=== PATIENT | female | born 1955 | race Caucasian/White ===

== ENCOUNTER 2023-07-06 10:06 | Outpatient (OUT) | payer OTHER, SELFPAY ==
[2023-07-06 10:37] LABS: Basophils Absolute Auto 0.1 10^3/uL (0.0-0.1); Basophils Percent Auto 1.1 % (0.2-2.0); Eosinophils Absolute Auto 0.4 10^3/uL (0.0-0.7); Eosinophils Percent Auto 5.7 % (0.9-7.0); Hematocrit 41.9 % (36.0-48.0); Hemoglobin 12.9 g/dL (12.0-16.0); Immature Granulocytes Abs Auto 0.01 10^3/uL (0.00-0.03); Immature Granulocytes Pct Auto 0.2 % (0.0-0.5); Lymphocytes Absolute Auto 1.7 10^3/uL (1.2-3.8); Lymphocytes Percent Auto 25.2 % (20.5-60.0); Mean Corpuscular HGB Conc 30.8 g/dL (29.9-35.2); Mean Corpuscular Hemoglobin 26.6 pg (26.7-34.0); Mean Corpuscular Volume 86.4 fL (81.0-99.0); Mean Platelet Volume 9.4 fL (9.5-13.5); Monocytes Absolute Auto 0.5 10^3/uL (0.3-0.8); Monocytes Percent Auto 7.1 % (1.7-12.0); Neutrophils Absolute Auto 4.1 10^3/uL (1.4-6.5); Neutrophils Percent Auto 60.7 % (43.0-75.0); Platelet Count 280 10^3/uL (150-450); Red Blood Count 4.85 10^6/uL (4.20-5.40); Red Cell Distribution Width 16.4 % (11.0-15.0); White Blood Count 6.7 10^3/uL (4.0-11.0)
[2023-07-06 11:17] LABS: Anion Gap 9.8; BUN Creatinine Ratio 16.1; Calcium 9.1 mg/dL (8.5-10.1); Carbon Dioxide 27.4 mmol/L (21.0-32.0); Chloride 105 mmol/L (98-107); Estimated GFR (African America 59 (>=60); Estimated GFR (Non-African Ame 49 (>=60); Glucose 98 mg/dL (74-106); Potassium 4.2 mmol/L (3.5-5.1); Sodium 138 mmol/L (136-145); Thyroid Stimulating Hormone 0.033 uIU/mL (0.358-3.740)
[2023-07-06 12:25] LABS: Free T4 1.76 ng/dL (0.76-1.46)
== END 2023-07-06 10:07 | disposition home or self-care (01) ==
LOC: LAB 10:13
PROVIDERS: PCP Family Medicine
DX: I48.0 Paroxysmal atrial fibrillation (principal)
CPT/HCPCS: 36415; 80048; 84439; 84443; 85025

== ENCOUNTER 2024-06-29 12:41 | Outpatient (OUT) | payer MEDICARE, SELFPAY ==
[2024-06-29 13:24] LABS: Basophils Absolute Auto 0.1 10^3/uL (0.0-0.1); Basophils Percent Auto 0.9 % (0.2-2.0); Eosinophils Absolute Auto 0.4 10^3/uL (0.0-0.7); Eosinophils Percent Auto 6.3 % (0.9-7.0); Hematocrit 41.9 % (36.0-48.0); Hemoglobin 13.9 g/dL (12.0-16.0); Immature Granulocytes Abs Auto 0.02 10^3/uL (0.00-0.03); Immature Granulocytes Pct Auto 0.3 % (0.0-0.5); Lymphocytes Absolute Auto 1.4 10^3/uL (1.2-3.8); Lymphocytes Percent Auto 21.4 % (20.5-60.0); Mean Corpuscular HGB Conc 33.2 g/dL (29.9-35.2); Mean Corpuscular Volume 90.3 fL (81.0-99.0); Mean Platelet Volume 9.9 fL (9.5-13.5); Monocytes Absolute Auto 0.5 10^3/uL (0.3-0.8); Neutrophils Absolute Auto 4.1 10^3/uL (1.4-6.5); Neutrophils Percent Auto 64.1 % (43.0-75.0); Platelet Count 189 10^3/uL (150-450); Red Blood Count 4.64 10^6/uL (4.20-5.40); Red Cell Distribution Width 13.3 % (11.0-15.0); White Blood Count 6.4 10^3/uL (4.0-11.0)
[2024-06-29 14:22] LABS: Free T4 1.26 ng/dL (0.76-1.46)
[2024-06-29 14:25] LABS: Anion Gap 10.4; BUN Creatinine Ratio 20.2; Calcium 8.9 mg/dL (8.5-10.1); Carbon Dioxide 28.7 mmol/L (21.0-32.0); Chloride 105 mmol/L (98-107); Estimated GFR (African America 52 (>=60); Estimated GFR (Non-African Ame 43 (>=60); Glucose 86 mg/dL (74-106); Potassium 4.1 mmol/L (3.5-5.1); Sodium 140 mmol/L (136-145); Thyroid Stimulating Hormone 0.069 uIU/mL (0.358-3.740)
== END 2024-06-29 12:42 | disposition home or self-care (01) ==
LOC: LAB 12:47
PROVIDERS: PCP Family Medicine
DX: I48.0 Paroxysmal atrial fibrillation (principal)
CPT/HCPCS: 36415; 80048; 84439; 84443; 85025

== ENCOUNTER 2024-10-20 11:17 | Outpatient (OUT) | payer MEDICARE, SELFPAY ==
--- OUTSIDE RECORDS SUMMARY | 2024-10-20 11:36 | XMS_ITS | CCD ---
Author Organization [facility] Care Team Providers Care Furnace Feeder Name Role Phone BLAKE MEMBRENO AM Unavailable Unavailable BLAKE MEMBRENO AM Unavailable Unavailable UNKNOWN, PROVIDER Unavailable Unavailable LACEY MARION Unavailable Unavailable [place] Unavailable Unavailable UNKNOWN, PROVIDER Unavailable Unavailable PASCALE, DR RAHMAN Primary Care Unavailable ONELIA, DR LEIA Duggan Consulting Unavailable ONELIA, DR LEIA Duggan Attending Unavailable ONELIA, DR LEIA Duggan Admitting Unavailable CARIDAD ZAMORA Consulting Unavailable SHAIKH Leonor CHRISTENSEN Consulting Unavailable BEAN SCHAFFER Consulting Unavailable PASCALE, DR RAHMAN Attending Unavailable PASCALE, DR RAHMAN Admitting Unavailable PASCALE, DR RAHMAN Primary Care Unavailable PASCALE, DR RAHMAN Consulting Unavailable ANA, DR ILANA Balderrama Consulting Unavailable Lacey Marion MD Primary Care Provider [phone] ADRYAN LONG Attending Unavailable LACEY MARION Referring Unavailable LACEY MARION Primary Care Unavailable ADRYAN LONG Referring Unavailable LACEY MARION Primary Care Unavailable Medications Current Medications Medication Drug Class(es) Dates Sig (Normalized) Sig (Original) flecainide acetate 50 mg oral tablet (3 sources) Antiarrhythmic Start: 07-22-2024 take 1 tablet by mouth in the morning, then take 1 tablet by mouth at bedtime flecainide (TAMBOCOR) 50 mg tablet Indications: Paroxysmal atrial fibrillation (CMS-HCC) Take 1 tablet (50 mg total) by mouth in the morning and 1 tablet (50 mg total) before bedtime. 180 tablet 3 07/22/2024 Active Start: 07-04-2023 End: 07-22-2024 take 1 tablet by mouth in the morning, then take 1 tablet by mouth at bedtime flecainide (TAMBOCOR) 50 mg tablet Indications: Paroxysmal atrial fibrillation (CMS-HCC) Take 1 tablet (50 mg total) by mouth in the morning and 1 tablet (50 mg total) before bedtime. 180 tablet 3 07/04/2023 07/22/2024 Discontinued (Reorder) furosemide 20 mg oral tablet (3 sources) Loop Diuretic Start: 07-22-2024 take 1 tablet by mouth once daily as needed furosemide (LASIX) 20 mg tablet Indications: Paroxysmal atrial fibrillation (CMS-HCC) Take 1 tablet (20 mg total) by mouth daily as needed (lower extremity swelling). 90 tablet 3 07/22/2024 Active Start: 07-04-2023 End: 07-22-2024 take 1 tablet by mouth once daily as needed furosemide (LASIX) 20 mg tablet Indications: Paroxysmal atrial fibrillation (CMS-HCC) Take 1 tablet (20 mg total) by mouth daily as needed (lower extremity swelling). 30 tablet 11 07/04/2023 07/22/2024 Discontinued (Reorder) levothyroxine sodium 0.125 mg oral tablet (3 sources) l-Thyroxine take 1 tablet by mouth in the morning levothyroxine (SYNTHROID, LEVOTHROID) 125 MCG tablet Take 1 tablet (125 mcg total) by mouth in the morning. Active End: 07-22-2024 take 1 tablet by mouth in the morning levothyroxine (SYNTHROID, LEVOTHROID) 150 MCG tablet Take 1 tablet (150 mcg total) by mouth in the morning. 07/22/2024 Discontinued (Dose adjustment) 24 hr metoprolol succinate 50 mg extended release oral tablet (3 sources) beta-Adrenergic Danica Start: 07-22-2024 take 1 tablet by mouth every twenty-four hours in the morning metoprolol succinate XL (TOPROL XL) 50 mg 24 hr tablet Indications: Paroxysmal atrial fibrillation (CMS-HCC) Take 1 tablet (50 mg total) by mouth in the morning. 90 tablet 3 07/22/2024 Active Start: 07-04-2023 End: 07-22-2024 take 1 tablet by mouth every twenty-four hours in the morning metoprolol succinate XL (TOPROL XL) 50 mg 24 hr tablet Indications: Paroxysmal atrial fibrillation (CMS-HCC) Take 1 tablet (50 mg total) by mouth in the morning. 90 tablet 3 07/04/2023 07/22/2024 Discontinued (Reorder) pantoprazole 40 mg delayed release oral tablet (2 sources) Proton Pump Inhibitor take 1 tablet by mouth in the morning pantoprazole (PROTONIX) 40 mg EC tablet Take 1 tablet (40 mg total) by mouth in the morning. Active rivaroxaban 15 mg oral tablet (2 sources) Factor Xa Inhibitor Start: take 1 tablet by mouth in the morning, then take 1 tablet by mouth in the morning rivaroxaban (XARELTO) 15 mg tablet Indications: Paroxysmal atrial fibrillation (CMS-HCC) , Atrial flutter (CMS-HCC) Take 1 tablet (15 mg total) by mouth in the morning. TAKE 1 TABLET (15 MG TOTAL) BY MOUTH IN THE MORNING. 30 tablet 6 07/22/2024 Active Problems Active Problems Problem Classification Problem Date Documented Da te Episodic/Chronic Cardiac dysrhythmias (12 sources) Unspecified atrial fibrillation; Translations: [Unspecified atrial flutter] Onset: 12-23-2017 07-22-2024 Chronic Cardiac dysrhythmias (1 source) Palpitations Onset: 07-22-2024 Episodic Conduction disorders (2 sources) Pre-excitation syndrome; Translations: [PRE-EXCITATION SYNDROME] Onset: 12-23-2017 Chronic Congestive heart failure; nonhypertensive (4 sources) Acute combined systolic (congestive) and diastolic (congestive) heart failure; Translations: [ACUTE COMB SYSTOLIC AND DIASTOLIC CHF] Onset: 08-09-2022 Chronic Deficiency and other anemia (2 sources) Iron deficiency anemia due to blood loss; Translations: [Iron deficiency anemia secondary to blood loss (chronic)] Onset: 06-23-2019 06-23-2019 Chronic Diverticulosis and diverticulitis (2 sources) Diverticulosis of large intestine; Translations: [Diverticulosis of large intestine without perforation or abscess without bleeding] Onset: 07-11-2019 07-11-2019 Chronic Esophageal disorders (1 source) Gastro-esophageal reflux disease without esophagitis; Translations: [GERD WITHOUT ESOPHAGITIS] Onset: 08-13-2022 Chronic Gastritis and duodenitis (2 sources) Gastritis; Translations: [Unspecified chronic gastritis without bleeding] Onset: 07-11-2019 07-11-2019 Chronic Heart valve disorders (5 sources) Rheumatic disorders of both mitral and tricuspid valves; Translations: [Tricuspid valve regurgitation] Onset: 12-23-2017 09-07-2018 Chronic Nutritional deficiencies (1 source) Unspecified protein-calorie malnutrition; Translations: [UNSPECIFIED PROTEIN-CALORIE MALNUTRITION] Onset: 12-23-2017 Chronic Osteoarthritis (1 source) Unspecified osteoarthritis, unspecified site; Translations: [UNSPECIFIED OSTEOARTHRITIS UNS SITE] Onset: 08-13-2022 Chronic Other circulatory disease (3 sources) History of cardiovascular surgery; Translations: [Presence of other cardiac implants and grafts] Onset: 09-15-2018 07-22-2024 Chronic Other circulatory disease (1 source) Presence of other cardiac implants and grafts; Translations: [Presence of other cardiac implants and grafts] Onset: 03-31-2019 Chronic Other connective tissue disease (4 sources) Pain in right toe(s); Translations: [PAIN IN RIGHT TOES] Onset: 11-21-2022 Episodic Maria Del Carmen-; endo-; and myocarditis; cardiomyopathy (except that caused by tuberculosis or sexually transmitted disease) (2 sources) Cardiomyopathy; Translations: [Cardiomyopathy, unspecified] Onset: 01-30-2021 01-30-2021 Chronic Residual codes; unclassified (1 source) Edema Onset: 07-22-2024 Episodic Substance-related disorders (2 sources) Nicotine dependence, cigarettes, uncomplicated; Translations: [NICOTINE DEPENDENCE, CIGARETTES, UNCOMPLICATED] Onset: 12-23-2017 Chronic Thyroid disorders (2 sources) Hypothyroidism, unspecified; Translations: [HYPOTHYROIDISM, UNSPECIFIED] Onset: 12-23-2017 Chronic Unclassified (2 sources) Unknown / UNK(Unknown) Onset: 12-23-2017 Unclassified (1 source) CONTACT W/AND (SUSP) EXPOS COVID-19; Translations: [CONTACT W/AND (SUSP) EXPOS COVID-19] Onset: 08-13-2022 Past or Other Problems Problem Classification Problem Date Documented Da te Episodic/Chronic Acute posthemorrhagic anemia (1 source) Acute posthemorrhagic anemia; Translations: [ACUTE POSTHEMORRHAGIC ANEMIA] Onset: 2 Episodic Gastrointestinal hemorrhage (1 source) Gastrointestinal hemorrhage, unspecified; Translations: [GASTROINTESTINAL HEMORRHAGE UNS] Onset: 2 Episodic Immunizations and screening for infectious disease (1 source) Encounter for immunization; Translations: [ENCOUNTER FOR IMMUNIZATION] Onset: 2 Episodic Malaise and fatigue (2 sources) Fatigue; Translations: [Other fatigue] Onset: 2 06-30-2022 Episodic Nonspecific chest pain (3 sources) Chest pain, unspecified; Translations: [CHEST PAIN, UNSPECIFIED] Onset: 8 Episodic Other aftercare (1 source) 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/antipl atelets; Translations: [RESIDENTIAL (CURRENT) USE OF ANTITHROMBOTICS/ANTIPL ATELETS] Onset: 8 Episodic Other aftercare (1 source) Other long wall mining machine helper (current) drug therapy; Translations: [OTH AGRICULTURE DEPARTMENT CHAIR CURRENT DRUG THERAPY] Onset: 2 Episodic Other aftercare (1 source) intermediate (current) use of anticoagulants; Translations: [RESIDENTIAL CURRNT USE ANTICOAGULANTS] Onset: 2 Episodic Other fractures (2 sources) Multiple closed fractures of cervical vertebrae; Translations: [Fracture of neck, unspecified, initial encounter] Onset: 8 10-18-2018 Episodic Other gastrointestinal disorders (2 sources) Occult blood in stools; Translations: [Other fecal abnormalities] Onset: 9 06-23-2019 Episodic Pleurisy; pneumothorax; pulmonary collapse (2 sources) Pleural effusion; Translations: [Pleural effusion, not elsewhere classified] Onset: 8 09-22-2018 Episodic Residual codes; unclassified (1 source) Acquired absence of both cervix and uterus; Translations: [ACQUIRED ABSENCE BOTH CERVIX AND UTERUS] Onset: 2 Episodic Unclassified (1 source) Body mass index (BMI) 21.0-21.9, adult; Translations: [BODY MASS INDEX (BMI) 21.0-21.9, ADULT] Onset: 8 Episodic Results Test Name Value Interpretation Reference Range Facility POCT [facility] 07-22-2024 [facility] PRBC LEUKOREDUCEDon 08-12-20 22 ABO and Rh group Nom (Bld) Cross Match Result Compatible Unit Blood Type O Pos Unit Number [id number] Status Information Transfused Product ID Red Blood Cells Product Code [id number] Cross Match Result Compatible Unit Blood Type O Pos Unit Number [id number] Status Information Transfused Product ID Red Blood Cells Product Code [id number] Normal [facility] Comment on above: Performed By: #### C NEEL, BMP #### [facility] [address] [place] [address] Dr. Radha Charlton BNPon 08-10-2022 Natriuretic peptide B (Bld) [Mass/Vol] 2858.0 pg/mL Critically high <=900.0 [facility] Comment on above: Performed By: #### C NAZIA, BMP #### [facility] [address] [place] [address] Dr. Radha Charlton HEMOGLOBIN AND HEMATOCRITon 08-10-2022 Hematocrit (Bld) [Volume fraction] 31.4 % Critically low 36.0-48.0 [facility] Comment on above: Performed By: #### H GBHCT #### [facility] [address] [place] [address] Dr. Radha Charlton Hemoglobin (Bld) [Mass/Vol] 9.4 g/dL Critically low 12.0-16.0 [facility] Comment on above: Performed By: #### H GBHCT #### [facility] [address] [place] [address] Dr. Radha Charlton Hematocrit (Bld) [Volume fraction] 29.1 % Critically low 36.0-48.0 [facility] Comment on above: Performed By: #### C NAZIA, BMP #### [facility] [address] [place] [address] Dr. Radha Charlton Hemoglobin (Bld) [Mass/Vol] 8.8 g/dL Critically low 12.0-16.0 [facility] Comment on above: Performed By: #### C NAZIA, BMP #### [facility] [address] [place] [address] Dr. Radha Charlton PROF 14(COMP METB)on 022 Albumin [Mass/Vol] 2.7 g/dL Critically low 3.4-5.0 [facility] Comment on above: Performed By: #### C NAZIA, BMP #### [facility] [address] [place] [address] Dr. Radha Charlton Albumin/Globulin [Mass ratio] 0.9 {ratio} Normal [facility] Comment on above: Performed By: #### C NAZIA, BMP #### [facility] [address] [place] [address] Dr. Radha Charlton ALP [Catalytic activity/Vol] 71 U/L Normal 46-116 [facility] Comment on above: Performed By: #### C NAZIA, BMP #### [facility] [address] [place] [address] Dr. Radha Charlton ALT [Catalytic activity/Vol] 49 U/L Normal 14-59 [facility] Comment on above: Performed By: #### C NAZIA, BMP #### [facility] [address] [address] [address] Radha Charlton Anion gap [Moles/Vol] 10.0 mmol/L Normal [facility] Comment on above: Performed By: #### C NAZIA, BMP #### [facility] [address] [place] [address] Dr. Radha Charlton AST [Catalytic activity/Vol] 31 U/L Normal 15-37 [facility] Comment on above: Performed By: #### C NZAIA, BMP #### [facility] [address] [place] [address] Dr. Radha Charlton Bilirubin [Mass/Vol] 0.3 mg/dL Normal 0.2-1.0 [facility] Comment on above: Performed By: #### C NAZIA, BMP #### [facility] [address] [place] [address] Dr. Radha Charlton Calcium [Mass/Vol] 8.2 mg/dL Critically low 8.5-10.1 [facility] Comment on above: Performed By: #### C NAZIA, BMP #### [facility] [address] [place] [address] Dr. Radha Charlton Chloride [Moles/Vol] 111 mmol/L Critically high 98-107 [facility] Comment on above: Performed By: #### C NAZIA, BMP #### [facility] [address] [place] [address] Dr. Radha Charlton CO2 [Moles/Vol] 26.4 mmol/L Normal 21.0-32.0 [facility] Comment on above: Performed By: #### C NAZIA, BMP #### [facility] [address] [place] [address] Dr. Radha Charlton Creatinine [Mass/Vol] 1.26 mg/dL Critically high 0.55-1.02 [facility] Comment on above: Performed By: #### C NEELM, BMP #### [facility] [address] [address] [address] Radha Charlton EGFR-AF CITIZEN OF [place] 51 mL/min/1.73m2 Critically low >=60 [facility] Comment on above: Performed By: #### C NEELM, BMP #### [facility] [address] [address] [address] Radha Charlton EGFR-NON AF CITIZEN OF [place] 42 mL/min/1.73m2 Critically low >=60 [facility] Comment on above: Performed By: #### C NAZIA, BMP #### [facility] [address] [address] [address] Radha Charlton Globulin (S) [Mass/Vol] 2.9 g/dL Normal [facility] Comment on above: Performed By: #### C NAZIA, BMP #### [facility] [address] [address] [address] Radha Charlton Glucose [Mass/Vol] 114 mg/dL Critically high 74-106 [facility] Comment on above: Performed By: #### C NAZIA, BMP #### [facility] [address] [address] [address] Radha Charlton Potassium [Moles/Vol] 3.4 mmol/L Critically low 3.5-5.1 [facility] Comment on above: Performed By: #### C NAZIA, BMP #### [facility] [address] [address] [address] Radha Charlton Protein [Mass/Vol] 5.6 g/dL Critically low 6.4-8.2 [facility] Comment on above: Performed By: #### C NAZIA, BMP #### [facility] [address] [address] [address] Radha Charlton Sodium [Moles/Vol] 144 mmol/L Normal 136-145 [facility] Comment on above: Performed By: #### C NAZAI, BMP #### [facility] [address] [place] [address] Dr. Radha Charlton Urea nitrogen [Mass/Vol] 29.0 mg/dL Critically high 7.0-18.0 [facility] Comment on above: Performed By: #### C NAZIA, BMP #### [facility] [address] [place] [address] Dr. Radha Charlton Urea nitrogen/Creatini ne [Mass ratio] 23.0 mg/mg Normal [facility] Comment on above: Performed By: #### C NAZIA, BMP #### [facility] [address] [place] [address] Dr. Radha Charlton BNPon 08-09-2022 Natriuretic peptide B (Bld) [Mass/Vol] 3320.0 pg/mL Critically high <=900.0 [facility] Comment on above: Performed By: #### C NAZIA, BMP #### [facility] [address] [place] [address] Dr. Radha Charlton CARDIAC BENJI 3-6on 2 CK [Catalytic activity/Vol] 97 U/L Normal 26-192 [facility] Comment on above: Performed By: #### C NAZIA, BMP #### [facility] [address] [place] [address] Dr. Radha Charlton CK.MB [Mass/Vol] 1.73 ng/mL Normal <=3.60 [facility] Comment on above: Performed By: #### C NAZIA, BMP #### [facility] [address] [place] [address] Dr. Radha Charlton HSTROP 11.9 pg/mL Normal 4.0-51.3 [facility] Comment on above: Result Comment: CUT- OFF POINTS HAVE BEEN ESTABLISHED BASED ON THE FOURTH UNIVERSAL DEFINITIONS OF MYOCARDIAL INFARCTION. THE UPPER REFERENCE LIMIT (URL) OF TROPONIN, DEFINED THE 99TH PERCENTILE OF cTnI DISTRIBUTION IN A REFERENCE POPULATION, HAS BEEN CONFIRMED THE DECISION THRESHOLD FOR CT DIAGNOSIS. Performed By: #### C NAZIA, BMP #### [facility] [address] [place] [address] Dr. Radha Charlton CK [Catalytic activity/Vol] 88 U/L Normal 26-192 [facility] Comment on above: Performed By: #### C NAZIA, BMP #### [facility] [address] [place] [address] Dr. Radha Charlton CK.MB [Mass/Vol] 1.73 ng/mL Normal <=3.60 [facility] Comment on above: Performed By: #### C NEELM, BMP #### [facility] [address] [place] [address] Dr. Radha Charlton HSTROP 14.3 pg/mL Normal 4.0-51.3 [facility] Comment on above: Result Comment: CUT- OFF POINTS HAVE BEEN ESTABLISHED BASED ON THE FOURTH UNIVERSAL DEFINITIONS OF MYOCARDIAL INFARCTION. THE UPPER REFERENCE LIMIT (URL) OF TROPONIN, DEFINED THE 99TH PERCENTILE OF cTnI DISTRIBUTION IN A REFERENCE POPULATION, HAS BEEN CONFIRMED THE DECISION THRESHOLD FOR CT DIAGNOSIS. Performed By: #### C NAZIA, BMP #### [facility] [address] [place] [address] Dr. Radha Charlton CARDIAC BENJI ADMITon 022 CK [Catalytic activity/Vol] 116 U/L Normal 26-192 [facility] Comment on above: Performed By: #### C NAZIA, BMP #### [facility] [address] [place] [address] Dr. Radha Charlton CK.MB [Mass/Vol] 2.32 ng/mL Normal <=3.60 [facility] Comment on above: Performed By: #### C NAZIA, BMP #### [facility] [address] [place] [address] Dr. Radha Charlton HSTROP 16.2 pg/mL Normal 4.0-51.3 [facility] Comment on above: Result Comment: CUT- OFF POINTS HAVE BEEN ESTABLISHED BASED ON THE FOURTH UNIVERSAL DEFINITIONS OF MYOCARDIAL INFARCTION. THE UPPER REFERENCE LIMIT (URL) OF TROPONIN, DEFINED THE 99TH PERCENTILE OF cTnI DISTRIBUTION IN A REFERENCE POPULATION, HAS BEEN CONFIRMED THE DECISION THRESHOLD FOR CT DIAGNOSIS. Performed By: #### C NAZIA, BMP #### [facility] [address] [place] [address] Dr. Radha Charlton VINICIO 95 ng/mL Critically high 9-82 [facility] Comment on above: Performed By: #### C NEELM, BMP #### [facility] [address] [place] [address] Dr. Radha Charlton CBC AUTO DIFFon 08-09-2022 BASO # 0.1 103/ul Normal 0.0-0.1 [facility] Comment on above: Performed By: #### C NAZIA, BMP #### [facility] [address] [place] [address] Dr. Radha Charlton Basophils/100 WBC (Bld) 0.7 % Normal 0.2-2.0 [facility] Comment on above: Performed By: #### C NAZIA, BMP #### [facility] [address] [place] [address] Dr. Radha Charlton EO # 0.3 103/ul Normal 0.0-0.7 [facility] Comment on above: Performed By: #### C NAZIA, BMP #### [facility] [address] [place] [address] Dr. Radha Charlton Eosinophils/100 WBC (Bld) 3.2 % Normal 0.9-7.0 [facility] Comment on above: Performed By: #### C NAZIA, BMP #### [facility] [address] [place] [address] Dr. Radha Charlton Erythrocyte distribution width (RBC) [Ratio] 19.4 % Critically high 11.0-15.0 [facility] Comment on above: Performed By: #### C NAZIA, BMP #### [facility] [address] [place] [address] Dr. Radha Charlton Hematocrit (Bld) [Volume fraction] 25.1 % Critically low 36.0-48.0 [facility] Comment on above: Performed By: #### C NAZIA, BMP #### [facility] [address] [place] [address] Dr. Radha Charlton Hemoglobin (Bld) [Mass/Vol] 7.0 g/dL Critically low 12.0-16.0 [facility] Comment on above: Performed By: #### C NAZIA, BMP #### [facility] [address] [address] [address] Radha Charlton IG # 0.05 10e3/ul Critically high 0.00-0.03 [facility] Comment on above: Performed By: #### C NAZIA, BMP #### [facility] [address] [address] [address] Radha Charlton IG % 0.5 % Normal 0.0-0.5 [facility] Comment on above: Performed By: #### C NAZIA, BMP #### [facility] [address] [address] [address] Radha Charlton LYMPH # 2.0 103/ul Normal 1.2-3.8 [facility] Comment on above: Performed By: #### C NAZIA, BMP #### [facility] [address] [place] [address] Dr. Radha Charlton Lymphocytes/100 WBC (Bld) 18.9 % Critically low 20.5-60.0 [facility] Comment on above: Performed By: #### C NAZIA, BMP #### [facility] [address] [place] [address] Dr. Radha Charltno MANUAL DIFF REQ NO Normal [facility] Comment on above: Performed By: #### C NAZIA, BMP #### [facility] [address] [place] [address] Dr. Radha Charlton MCH (RBC) [Entitic mass] 21.6 pg Critically low 26.7-34.0 [facility] Comment on above: Performed By: #### C NAZIA, BMP #### [facility] [address] [place] [address] Dr. Radha Charlton MCHC (RBC) [Mass/Vol] 27.9 g/dL Critically low 29.9-35.2 [facility] Comment on above: Performed By: #### C NAZIA, BMP #### [facility] [address] [place] [address] Dr. Radha Charlton MCV (RBC) [Entitic vol] 77.5 fL Critically low 81.0-99.0 [facility] Comment on above: Performed By: #### C MADM, BMP #### [facility] [address] [place] [address] Dr. Radha Charlton MONO # 1.0 103/ul Critically high 0.3-0.8 [facility] Comment on above: Performed By: #### C MADM, BMP #### [facility] [address] [place] [address] Dr. Radha Charlton Monocytes/100 WBC (Bld) 9.5 % Normal 1.7-12.0 [facility] Comment on above: Performed By: #### C MADM, BMP #### [facility] [address] [place] [address] Dr. Radha Charlton NEUT # 7.0 103/ul Critically high 1.4-6.5 [facility] Comment on above: Performed By: #### C MADM, BMP #### [facility] [address] [place] [address] Dr. Radha Charlton Neutrophils/100 WBC (Bld) 67.2 % Normal 43.0-75.0 [facility] Comment on above: Performed By: #### C MADM, BMP #### [facility] [address] [place] [address] Dr. Radha Charlton Platelet mean volume (Bld) [Entitic vol] 10.0 fL Normal 9.5-13.5 [facility] Comment on above: Performed By: #### C MADM, BMP #### [facility] [address] [place] [address] Dr. Radha Charlton PLT 308 103/ul Normal 150-450 [facility] Comment on above: Performed By: #### C MADM, BMP #### [facility] [address] [place] [address] Dr. Radha Charlton RBC 3.24 106/ul Critically low 4.20-5.40 [facility] Comment on above: Performed By: #### C MADM, BMP #### [facility] [address] [place] [address] Dr. Radha Charlton WBC 10.4 103/ul Normal 4.0-11.0 [facility] Comment on above: Performed By: #### C NEEL, [facility] #### [facility] [address] [address] [address] Radha Charlton CTA CHEST WO W CONon CTA CHEST WO W CON EXAMINATION: CTA CHEST WO W CON, 08/09/2022 2:07 AM EDT HISTORY: SHORTNESS OF BREATH COMPARISON: Chest x-ray earlier today TECHNIQUE: CT angiography of the chest was performed with IV contrast. MIP (maximum intensity projection) images or 3D post processing was performed. CT dose reduction technique was used, including Automated Exposure Control. FINDINGS: PULMONARY ARTERIES: There is excellent opacification of the pulmonary vasculature. No abnormal vascular cut-offs or filing defects to suggest presence of pulmonary emboli. Pulmonary trunk measures 3 CM, considered borderline for possible developing pulmonary hypertension. AORTA: Thoracic aorta is normal in course and caliber. Mild/moderate mixed soft and calcified plaque throughout, without evidence of dissection flap. No aneurysm. MEDIASTINUM: Thyroid not well seen may be small or absent. Trachea and central airways are patent. Heart is mildly enlarged without pericardial effusion. No measurable hilar or mediastinal lymphadenopathy. A few partially calcified lymph nodes compatible with remote granulomatous disease. PLEURAL CAVITY: No pneumothorax. Trace left and small to moderate right pleural effusions. LUNGS: Moderate bilateral centrilobular pulmonary emphysema. There is associated interstitial coarsening/scarring. Interlobular septal thickening is present, greatest in the mid to lower lungs, suggesting superimposed edema. There is some compressive atelectasis adjacent to the right effusion, with some additional hazy groundglass opacity in the right lower lobe. Mild diffuse bronchial wall thickening bilaterally, can be seen with acute or chronic bronchitis. CHEST WALL/AXILLA: No axillary lymphadenopathy VISUALIZED UPPER ABDOMEN: Mild narrowing of the proximal celiac and superior mesenteric and bilateral renal arteries due to atherosclerotic disease. Multiple calcified splenic granulomas. Probable mild renal cortical scarring bilaterally. Mildly thickened adrenals, could be from hyperplasia. A few calcified hepatic granulomas. A couple small low-attenuation lesions in the right hepatic lobe, too small to characterize but statistically most likely cysts or hemangiomas. BONES: No acute abnormality or destructive lesion. Mild/moderate chronic degenerative changes of the spine. Multiple sternotomy wires. Loop recorder in the left anterior chest wall. IMPRESSION: 1. No evidence of pulmonary embolus. 2. Pulmonary trunk measures 3 CM, considered borderline for possible developing pulmonary hypertension. 3. Mild/moderate mixed aortic atherosclerotic disease. No evidence of aneurysm or dissection. 4. Mild cardiomegaly. Small to moderate right and trace left pleural effusions, with evidence of pulmonary interstitial edema, consistent with an element of CHF/fluid overload. 5. Opacities in the right lower lobe, likely combination of atelectasis and edema, with superimposed infection possible in the proper setting. 6. Moderate centrilobular emphysema. Changes of acute versus chronic bronchitis. 7. Other chronic and likely incidental findings, as described above. Electronically authenticated by: BEAN SCHAFFER Date: 2022-08-09 03:39 Normal [facility] Covid-19 PCR (CVDTB)on 07-20 SARS-CoV-2 (COVID-19) RNA EMILIA+probe Ql (Unsp spec) Not detected Normal NOT DETECTED [facility] Comment on above: Result Comment: When diagnostic testing is negative, the possibility of a false negative should be considered in the context of a patient's recent exposures and the presence of clinical signs and symptoms consistent with SARS-CoV-2. This test is not yet approved or cleared by the [place] FDA. When there are no FDA-approved or cleared tests available, and other criteria are met, FDA can make tests available under an emergency access mechanism called an Emergency Use Authorization (EUA). The EUA for this test is supported by the [employer] of Health and Human Service's declaration that circumstances exist to justify the emergency use of in vitro diagnostics for the detection and/or diagnosis of the virus that causes COVID-19. This EUA will remain in effect for the duration of the COVID-19 declaration justifying emergency of IVDs, unless it is terminated or revoked by the FDA (after which the test may no longer be used). Performed By: #### C YISEL MANDUJANO #### [facility] [address] [place] [address] Dr. Radha Charlton D-DIMERon 08-09-2022 D-DIMER 1.36 mg/L FEU Critically high <=0.59 [facility] Comment on above: Performed By: #### C YISEL MANDUJANO #### [facility] [address] [address] [address] Radha Charlton D-DIMER COMMENTS SEE BELOW Normal [facility] Comment on above: Result Comment: Incr eases in D-Dimer concentration observed with thromboembolic events can be variable due to localization, size, and age of the thrombus. Therefore, a thromboembolic event cannot be diagnosed with certainty on the basis of the reference range. D-Dimers may also be elevated for a variety of disorders including: advanced age, , coronary disease, cancer, liver disease, infection, inflammation, hematoma, DIC, trauma, post-surgery, diabetes, thrombolytic or anticoagulant therapy, stress, and generalized hospitalization. Performed By: #### C MADM, BMP #### [facility] [address] [place] [address] Dr. Radha Charlton FREE T3on 08-09-2022 FREE T3 1.79 pg/mlL Critically low 2.18-3.98 [facility] Comment on above: Performed By: #### C MADM, BMP #### [facility] [address] [place] [address] Dr. Radha Charlton FREE T4on 08-09-2022 Free T4 [Mass/Vol] 1.43 ng/dL Normal 0.76-1.46 [facility] Comment on above: Performed By: #### F T4, FETIBC, B12FOL #### [facility] [address] [place] [address] Dr. Radha Charlton HEMOGLOBIN AND HEMATOCRITon 08-09-2022 Hematocrit (Bld) [Volume fraction] 29.5 % Critically low 36.0-48.0 [facility] Comment on above: Performed By: #### H GBHCT #### [facility] [address] [place] [address] Dr. Radha Charlton Hemoglobin (Bld) [Mass/Vol] 9.0 g/dL Critically low 12.0-16.0 [facility] Comment on above: Performed By: #### H GBHCT #### [facility] [address] [place] [address] Dr. Radha Charlton Hematocrit (Bld) [Volume fraction] 28.7 % Critically low 36.0-48.0 [facility] Comment on above: Performed By: #### H GBHCT #### [facility] [address] [address] [address] Radha Charlton Hemoglobin (Bld) [Mass/Vol] 8.7 g/dL Critically low 12.0-16.0 [facility] Comment on above: Performed By: #### H GBHCT #### [facility] [address] [address] [address] Radha Charlton INFLUENZA A AND B AGon 08-09 INFLUENZA A AG Negative Normal NEGATIVE SEE COMMENT [facility] Comment on above: Performed By: #### I NFLUAB #### [facility] [address] [place] [address] Dr. Radha Charlton INFLUENZA B AG Negative Normal NEGATIVE SEE COMMENT [facility] Comment on above: Performed By: #### I NFLUAB #### [facility] [address] [place] [address] Dr. Radha Charlton INTERNAL CONTROLS Within Normal Limits Normal Wi thin Normal Limits [facility] Comment on above: Performed By: #### I NFLUAB #### [facility] [address] [place] [address] Dr. Radha Charlton IRON AND TIBCon 08-09-2022 % SATURATION 3.5 % Normal [facility] Comment on above: Performed By: #### F T4, FETIBC, B12FOL #### [facility] [address] [address] [address] Radha Charlton Iron [Mass/Vol] 16.0 ug/dL Critically low 50.0-170.0 [facility] Comment on above: Performed By: #### F T4, FETIBC, B12FOL #### [facility] [address] [address] [address] Radha Charlton TIBC DIRECT 463.0 ug/dL Critically high 250.0-450. 0 [facility] Comment on above: Performed By: #### F T4, FETIBC, B12FOL #### [facility] [address] [place] [address] Dr. Radha Charlton OCC BLD IMMUNO SCREENon 07-20 OCCULT BLOOD Positive Abnormal NEGATIVE [facility] Comment on above: Performed By: #### O BSCRN #### [facility] [address] [place] [address] Dr. Radha Charlton PROF CHEM 8 (BAS METB)on Anion gap [Moles/Vol] 12.4 mmol/L Normal [facility] Comment on above: Performed By: #### C NEELM, BMP #### [facility] [address] [place] [address] Dr. Radha Charlton Calcium [Mass/Vol] 8.0 mg/dL Critically low 8.5-10.1 [facility] Comment on above: Performed By: #### C NEELM, BMP #### [facility] [address] [place] [address] Dr. Radha Charlton Chloride [Moles/Vol] 109 mmol/L Critically high 98-107 [facility] Comment on above: Performed By: #### C NEELM, BMP #### [facility] [address] [place] [address] Dr. Radha Charlton CO2 [Moles/Vol] 22.4 mmol/L Normal 21.0-32.0 [facility] Comment on above: Performed By: #### C NAZIA, BMP #### [facility] [address] [place] [address] Dr. Radha Charlton Creatinine [Mass/Vol] 1.62 mg/dL Critically high 0.55-1.02 [facility] Comment on above: Performed By: #### C NEELM, BMP #### [facility] [address] [place] [address] Dr. Radha Charlton EGFR-AF CITIZEN OF [place] 39 mL/min/1.73m2 Critically low >=60 [facility] Comment on above: Performed By: #### C NEELM, BMP #### [facility] [address] [place] [address] Dr. Radha Charlton EGFR-NON AF CITIZEN OF [place] 32 mL/min/1.73m2 Critically low >=60 [facility] Comment on above: Performed By: #### C NEELM, BMP #### [facility] [address] [place] [address] Dr. Radha Charlton Glucose [Mass/Vol] 124 mg/dL Critically high 74-106 [facility] Comment on above: Performed By: #### C NAZIA, BMP #### [facility] [address] [place] [address] Dr. Radha Charlton Potassium [Moles/Vol] 3.8 mmol/L Normal 3.5-5.1 [facility] Comment on above: Performed By: #### C NAZIA, BMP #### [facility] [address] [place] [address] Dr. Radha Charlton Sodium [Moles/Vol] 140 mmol/L Normal 136-145 [facility] Comment on above: Performed By: #### C NAZAI, BMP #### [facility] [address] [place] [address] Dr. Radha Charlton Urea nitrogen [Mass/Vol] 34.0 mg/dL Critically high 7.0-18.0 [facility] Comment on above: Performed By: #### C NAZIA, BMP #### [facility] [address] [place] [address] Dr. Radha Charlton Urea nitrogen/Creatini ne [Mass ratio] 21.0 mg/mg Normal [facility] Comment on above: Performed By: #### C NAZIA, BMP #### [facility] [address] [place] [address] Dr. Radha Charlton TSHon 08-09-2022 TSH 0.259 uIU/mL Critically low 0.358-3.74 0 [facility] Comment on above: Performed By: #### C NAZIA, BMP #### [facility] [address] [place] [address] Dr. Radha Charlton TYPE AND SCREENon 08-09-2022 TYPE AND SCREEN Negative Normal [facility] Comment on above: Performed By: #### C NAZIA, BMP #### [facility] [address] [place] [address] Dr. Radha Charlton VIT B12 AND FOLATEon 022 Cobalamin (Vitamin B12) [Mass/Vol] 459.0 pg/mL Normal 193.0-986. 0 [facility] Comment on above: Performed By: #### F T4, FETIBC, B12FOL #### [facility] [address] [place], [place] [address] Dr. Radha Charlton FOLATE 10.20 ng/mL Normal 8.60-58.90 [facility] Comment on above: Performed By: #### F T4, FETIBC, B12FOL #### [facility] [address] [place], [place] [address] Dr. Radha Charlton XR CHEST 1 Von 08-09-2022 XR CHEST 1 V EXAM: XR CHEST 1 V HISTORY: CHEST PAIN, UNSPECIFIED COMPARISON: 01/15/2021 TECHNIQUE: Chest single view. FINDINGS: Lines/tubes/devices: EKG leads and other extrinsic structures overlie the chest. Cardiac loop recorder. Cardiomediastinum: Cardiac silhouette appears upper normal in size. Atherosclerotic calcifications of the aorta. Mediastinal silhouette otherwise unremarkable. Vasculature: Possible mild central vascular congestion. Lungs/pleura: Lungs appear hyperinflated with interstitial coarsening, findings suggestive of COPD. No consolidation, sizeable effusion, or visible pneumothorax. Hazy opacity over the lung bases likely from overlying soft tissue attenuation. Bones/soft tissues: Bony thorax appears grossly intact as seen. Postop changes with sternotomy wires present. IMPRESSION: Possible mild central vascular congestion. No overt edema or sizable pleural effusion. Electronically authenticated by: BEAN SCHAFFER Date: 2022-08-09 02:20 Normal [facility] Consent for COVID Vaccineon 02-02-2021 SARS-CoV-2 (COVID-19) RNA EMILIA+probe Ql (Unsp spec) [id number]#1.00CD:127 Normal [facility] Coding Summary.on 01-07-2021 Coding Summary. CODING DATE: 021 FINAL [facility] STATUS: PAYOR: Praveen APC DESCRIPTION [employer] - Level 1B ($11-$20) ADMIT DX: REASON FOR VISIT DX: Z23 Encounter for immunization FINAL DX: PRINCIPAL: Z23 Encounter for immunization SECONDARY: PYMT PROC APC STAT DESCRIPTION DOCTOR NAME DATE NOTE: The code number assigned matches the documented diagnosis and / or procedure in the patient's chart. However, the narrative phrase printed from the coding software may appear abbreviated, or result in slightly different terminology. Coded By: Adelaide Schaffer Date Saved: 01/07/2021 09:23 am Normal [facility] Consent for COVID Vaccineon 01-03-2021 SARS-CoV-2 (COVID-19) RNA EMILIA+probe Ql (Unsp spec) [id number]#1.00CD:127 Normal [facility] Consent for Treatmenton 12-17 Consent for Treatment [id number]#1.00CD:127 Normal [facility] Cardiovascular Lab Reporton 12-25-2017 Cardiovascular Lab Report [facility] Patient Name: Kwame Victoria [facility] MR #: [id number] Physician: Oj Luna M.D.Medicine Service Date: 12/24/2017Division of Birthdate: 6Cardiology Room #: 3AB [id number] [facility] [place], [place] [address]Sftav Fax Cardiovascular Laboratory ReportINDICATION: Kwame Victoria is a 62-year-old lady with history of WPW statuspost surgical ablation in 1989. She has history of atrial flutterdiagnosed about 1 year ago and has been maintained on Eliquis. She wasad[facility] with symptoms of unstableangina and continuous chest pain. Her cardiac enzymes were negative. Shewas found to be in atrial flutter with uncontrolled ventricular response.Her echocardiogram showed preserved ventricular function with moderatemitral and tricuspid regurgitation and dilated atria. She was transferredto our center for further management and referred for cardiaccatheterization.PROCEDURE PERFORMED: Bilateral selective coronary angiography from theright radial access.METHOD: Procedure was explained to the patient with risks and benefits.She signed informed consent. She was brought [place] [facility] [place]. The right wrist area was prepped and draped in usual fashion.Using micropuncture technique, the right radial artery was accessed. A6-[place] x 11 cm Hydrophilic sheath was advanced. Verapamil was giventhrough the sheath and heparin was administered intravenously. James'stest was favorable on the right. Bilateral selective coronary angiographywas then performed using a 6-[place] Sree radial diagnostic catheter forengagement of the right and left main coronary ostia, catheter was removed.Procedure was concluded. The access sheath was removed and a compressiondressing applied for hemostasis. She was transferred back to her room.TOTAL FLUORO TIME: 2.44 minutes.TOTAL AIR KERMA: 179 mGy.TOTAL CONTRAST VOLUME: 25 mL.HEMODYNAMICS: AO 163/87, mean 120.Coronary angiography: This is a right dominant circulation.Left main. This arises from left coronary cusp. It bifurcates into leftanterior descending and circumflex vessels. The left main is free ofdisease.Left anterior descending. This has minimal luminal irregularities.Circumflex vessel: This has minimal luminal irregularities.Right coronary artery. This arises from the right coronary cusp. It is alarge and dominant vessel. It has minimal luminal irregularities, mostlyin the mid segment. The rest of the right coronary artery is free ofdisease.SUMMARY OF THE FINDINGS: Minimal coronary artery disease.RECOMMENDATIONS:1. Medical therapy for minimal coronary artery disease.2. Management of atrial flutter as indicated.Electronically Signed by:Oj Rocha M.D. 12/27/2017 11:38 P Oj Rocha M.D.Date Dict: 12/24/2017/02:58 P/Oj Rocha M.D.Date Trans: 12/25/2017 04:21 A/CatherineN_JN:[id number]: Lacey Marion M.D. [address] [place] [id number] [facility] [place] [facility] [id number] Oj Rocha M.D. Heart Failure/ Transplant Mailstop 0[address] [facility] [address] Normal [facility] Discharge Summaryon 12-26-19 Discharge Summary MR#: [id number] [facility] Kwame Victoria Admitted: 12/23/2017 Discharged: 12/24/2017 Date of : 1955 Physician: Blake Membreno M.D. DISCHARGE SUMMARYPRIMARY DIAGNOSIS: Noncardiac chest pain.SECONDARY DIAGNOSES:1. Atrial flutter.2. Celzd-Sgtjrrqad-Izwsu syndrome status post ablation in the .3. Hypothyroidism.HISTORY OF PRESENT ILLNESS AND HOSPITAL COURSE: The patient is [id number] female with a past medical history as noted above, [facility] after she presented with acuteretrosternal chest pain, that was pressure-like in nature, that woke her upfrom sleep. The pain is not exertional and had not occurred prior topresentation. EKG report showed no changes and troponins were negative x2.She was taken to the catheterization lab on 12/23/2017, which wasunremarkable and showed no significant coronary artery disease. Thecatheterization was done by the radial approach. At the time of discharge,the patient reported no chest pain and was discharged to home withappropriate followup appointment scheduled.DISCHARGE DISPOSITION: The patient was discharged to home in an improvedand stable condition.DISCHARGE MEDICATIONS:1. Diclofenac sodium 75 mg tablet 3 times daily.2. Diltiazem 30 mg 3 times daily.3. Isosorbide mononitrate 30 mg daily.4. Levothyroxine 137 mcg daily.5. Nitroglycerin 0.4 mg sublingual p.r.n. for chest pain.6. Pantoprazole 40 mg daily.7. Xarelto 20 mg at bedtime daily.Reviewed By:Annalise Stephenson MD 12/26/2017 01:52 PElectronically Signed by:Blake Membreno M.D. 01/05/2018 04:24 P Blake Membreno M.D. I personally saw this patient on the day of the encounter, performed thekey portion(s) of the service and participated in the management andconfirm the resident's documentation. Please note there may be anadditional personal documentation from me. Date Dict: 12/24/2017/04:20 P/Annalise Sachin, MDDate Trans: 12/25/2017 12:19 A/mmClarisaN_JN:[id number]: Lacey Marion M.D. [address] [place] [address] Oj Rocha M.D. Heart Failure/ Transplant Mailstop [address] [facility] [address] Normal [facility] APTTon 12-24-2017 aPTT 72.7 s Critically high 25.0-35.0 [facility] Comment on above: Order Comment: No: D o not add to previous draw Result Comment: ALL RESULTS MUST BE INTERPRETED WITH RESPECT TO BLOOD DRAWING ARTIFACTOR DILUTION ERROR OF ANTICOAGULANT AT THE TIME OF SAMPLING.THE APTT SHOULD NOT BE USED TO MONITOR UNFRACTIONATED HEPARIN THERAPY, THIS LABORATORY NO LONGER HAS AN ESTABLISHED THERAPEUTIC RANGE BASEDON THE APTT. IT IS RECOMMENDED THAT THE UFH - HEPARIN ASSAY (ANTI-XAACTIVITY) BE USED FOR THIS PURPOSE.RESULT CALLED TO NELL JENSEN 0640CLINICAL SIGNIFICANCE OF THE PTT RESULT IS QUESTIONABLE IN THE PRESENCEOF HEPARIN. Performed By: #### 3 5200, 62294, 53724 ####[facility] [facility].[address] BASIC METABOLIC PANELon 03-0 Calcium 8.1 mg/dL Low 8.6-10.3 [facility] Comment on above: Order Comment: No: D o not add to previous draw Performed By: #### 3 5200, 45277, 08087 ####[facility] [place] [address], [facility] Chloride 115 mmol/L High 98-107 [facility] Comment on above: Order Comment: No: D o not add to previous draw Performed By: #### 3 5200, 55204, 67378 ####[facility] [place] [address], [facility] CO2 25 mmol/L Normal 21-31 [facility] Comment on above: Order Comment: No: D o not add to previous draw Performed By: #### 3 5200, 14146, 13592 ####[facility] [place] [address], [facility] Creatinine 0.78 mg/dL Normal 0.60-1.20 [facility] Comment on above: Order Comment: No: D o not add to previous draw Performed By: #### 3 5200, 37136, 75478 ####[facility] [place] [address], [facility] eGFR (black) mL/min/{1.73_m2} Normal >60 [facility] Comment on above: Order Comment: No: D o not add to previous draw Performed By: #### 3 5200, 55988, 33691 ####[facility] [place] [address], [facility] eGFR (non-black) mL/min/{1.73_m2} Normal >60 Th e [facility] Comment on above: Order Comment: No: D o not add to previous draw Performed By: #### 3 5200, 72439, 90164 ####[facility] [place] [address], [facility] Glucose mass conc 87 mg/dL Normal 70-100 [facility] Comment on above: Order Comment: No: D o not add to previous draw Performed By: #### 3 0, 14204, 61515 ####[facility] [place] [address], [place] Potassium molar conc 4.3 mmol/L Normal 3.5-5.1 [facility] Comment on above: Order Comment: No: D o not add to previous draw Performed By: #### 3 5200, 36410, 93263 ####[facility] [place] [address], [place] Sodium 142 mmol/L Normal 136-145 [facility] Comment on above: Order Comment: No: D o not add to previous draw Performed By: #### 3 5200, 11268, 63948 ####[facility] Urea nitrogen 19 mg/dL Normal 7-25 [facility] Comment on above: Order Comment: No: D o not add to previous draw Performed By: #### 3 5200, 49052, 41674 ####[facility] CBC W/DIFFon 12-24-2017 ABS BASOPHILS 0.1 10*3/uL Normal 0.0-0.2 [facility] Comment on above: Order Comment: No: D o not add to previous draw Performed By: #### 5 0103 ####[address] ABS IMM GRANS 0.0 10*3/uL Normal 0.0-0.2 [facility] Comment on above: Order Comment: No: D o not add to previous draw Performed By: #### 5 0103 ####[address] Basophils Auto #/vol (Bld) 0.6 % Normal 0.0-1.0 [facility] Comment on above: Order Comment: No: D o not add to previous draw Performed By: #### 5 0103 ####[address] Eosinophils 0.4 10*3/uL Normal 0.0-0.5 [facility] Comment on above: Order Comment: No: D o not add to previous draw Performed By: #### 5 0103 ####[address] Eosinophils/100 leukocytes 3.6 % Normal 0.0-6.0 [facility] Comment on above: Order Comment: No: D o not add to previous draw Performed By: #### 5 0103 ####[facility] Erythrocyte distribution width Auto Ratio (RBC) 13.3 % Normal 11.5-15.0 [facility] Comment on above: Order Comment: No: D o not add to previous draw Performed By: #### 5 0103 ####[facility] [facility].[address] [address] Erythrocytes (RBC) 0 % Normal 0-0 [facility] Comment on above: Order Comment: No: D o not add to previous draw Performed By: #### 5 0103 ####[facility]3000 [facility].[address] Erythrocytes (RBC) 3.54 10*6/uL Low 3.80-5.00 [facility] Comment on above: Order Comment: No: D o not add to previous draw Performed By: #### 5 3 ####[facility]3000 [facility].[address] Hematocrit (HCT) 32.7 % Low 36.0-45.0 [facility] Comment on above: Order Comment: No: D o not add to previous draw Performed By: #### 5 3 ####[facility]3000 [facility].[address] Hemoglobin mass conc (Bld) 10.4 g/dL Low 12.0-15.0 [facility] Comment on above: Order Comment: No: D o not add to previous draw Performed By: #### 5 3 ####[facility]3000 [facility] [place] [address], [facility] IMMATURE GRANS 0.3 % Normal 0.0-1.0 [facility] Comment on above: Order Comment: No: D o not add to previous draw Performed By: #### 5 3 ####[facility] Lymphocytes 2.1 10*3/uL Normal 1.2-4.0 [facility] Comment on above: Order Comment: No: D o not add to previous draw Performed By: #### 5 0103 ####[facility]3000 [facility].[address] Lymphocytes/100 leukocytes 20.8 % Normal 20.0-45.0 [facility] Comment on above: Order Comment: No: D o not add to previous draw Performed By: #### 5 0103 ####[facility]3000 [facility].[address] MCH 29.4 pg Normal 27.0-33.0 [facility] Comment on above: Order Comment: No: D o not add to previous draw Performed By: #### 5 0103 ####[facility]3000 [facility].[address] MCHC mass conc (RBC) 31.8 g/dL Low 32.0-35.0 [facility] Comment on above: Order Comment: No: D o not add to previous draw Performed By: #### 5 0103 ####[facility]3000 [facility].[address] MCV 92.4 fL Normal 82.0-98.0 [facility] Comment on above: Order Comment: No: D o not add to previous draw Performed By: #### 5 0103 ####[facility]3000 [facility].[address] Monocytes 0.6 10*3/uL Normal 0.1-1.0 [facility] Comment on above: Order Comment: No: D o not add to previous draw Performed By: #### 5 0103 ####[facility] [place] [address] AV[address] MONOS 5.6 % Normal 5.0-12.0 [facility] Comment on above: Order Comment: No: D o not add to previous draw Performed By: #### 5 0103 ####[facility] [place] [address], [facility] Neutrophils 6.9 10*3/uL Normal 1.6-7.6 [facility] Comment on above: Order Comment: No: D o not add to previous draw Performed By: #### 5 0103 ####[facility] Neutrophils/100 leukocytes 69.1 % Normal 40.0-72.0 [facility] Comment on above: Order Comment: No: D o not add to previous draw Performed By: #### 5 0103 ####[facility]3000 [facility].[address] PLAT CNT 228 10*3/uL Normal 150-400 [facility] Comment on above: Order Comment: No: D o not add to previous draw Performed By: #### 5 0103 ####[facility] WBC (Leukocytes) 10.0 10*3/uL Normal 4.0-10.6 [facility] Comment on above: Order Comment: No: D o not add to previous draw Performed By: #### 5 0103 ####[facility]3000 [address]HE.[address] LIVER BATTERYon 12-24-2017 Alanine aminotransferase (ALT) 27 U/L Normal 7-52 [facility] Comment on above: Order Comment: No: D o not add to previous draw Performed By: #### 3 5200, 47082, 07956 ####[facility] Albumin 2.9 g/dL Low 3.5-5.7 [facility] Comment on above: Order Comment: No: D o not add to previous draw Performed By: #### 3 5200, 56717, 56975 ####[facility] [place] [address], [facility] ALKALINE PHOSPH 41 IU/L Normal 34-104 [facility] Comment on above: Order Comment: No: D o not add to previous draw Performed By: #### 3 5200, 87549, 92803 ####[facility] Aspartate aminotransferase (AST) 15 U/L Normal 13-39 [facility] Comment on above: Order Comment: No: D o not add to previous draw Performed By: #### 3 5200, 98120, 13029 ####[facility] [place] [address], [facility] Bilirubin (direct) 0.1 mg/dL Normal 0.0-0.2 [facility] Comment on above: Order Comment: No: D o not add to previous draw Performed By: #### 3 5200, 31574, 86596 ####[facility]3000 [facility].[address] Bilirubin (total) 0.4 mg/dL Normal 0.3-1.0 [facility] Comment on above: Order Comment: No: D o not add to previous draw Performed By: #### 3 5200, 54346, 05886 ####[facility]3000 [facility] [place] [place] [address], [facility] Protein 4.8 g/dL Low 6.0-8.3 [facility] Comment on above: Order Comment: No: D o not add to previous draw Performed By: #### 3 5200, 85525, 50197 ####[facility] [place] [address], [facility] MAGNESIUM BLOODon 12-24-2017 Magnesium 1.9 mg/dL Normal 1.9-2.7 [facility] Comment on above: Order Comment: No: D o not add to previous draw Performed By: #### 3 5200, 33525, 49764 ####[facility]3000 [facility].[address] PROTHROMBIN TIMEon 8 INR Coag RelTime (PPP) 1.03 {INR} Normal 0.91-1.16 [facility] Comment on above: Order Comment: No: D o not add to previous draw Result Comment: ACCC P RECOMMENDED INR FOR WARFARIN THERAPY CONDITION INRPROPHYLAXIS OF VENOUS THROMBOSIS 2-3(HIGH-RISK SURGERY)TREATMENT OF VENOUS THROMBOSIS 2-3TREATMENT OF PULMONARY EMBOLISM 2-3PREVENTION OF SYSTEMIC EMBOLISM: 2-3 ACUTE MYOCARDIAL INFARCTION TISSUE HEART VALVES VALVULAR HEART DISEASE ATRIAL FIBRILLATION RECURRENT SYSTEMIC EMBOLISMMECHANICAL HEART VALVE 2.5-3.5 FROM: ORAL ANTICOAGULANTS. MECHANISM OF ACTION, CLINICALEFFECTIVENESS, AND OPTIMAL THERAPEUTIC RANGE. [id number]-246S. Performed By: #### 3 3030, 28818, 67476 ####[facility]3000 [facility].[address] Prothrombin time (PT) Coag time (PPP) 13.5 s Normal 12.3-14.8 [facility] Comment on above: Order Comment: No: D o not add to previous draw Result Comment: ALL RESULTS MUST BE INTERPRETED WITH RESPECT TO BLOOD DRAWING ARTIFACTOR DILUTION ERROR OF ANTICOAGULANT AT THE TIME OF SAMPLING. Performed By: #### 3 5200, 65196, 17788 ####[facility]3000 [facility].[address] TROPONIN-Ion 12-24-2017 Troponin I.cardiac mass conc 0.00 ng/mL Normal 0.00-0.04 [facility] Comment on above: Order Comment: No: D o not add to previous draw Result Comment: REFE RENCE RANGES: 0.00 - 0.14 ng/ml NEGATIVE 0.15 - 0.25 ng/ml INDETERMINATE > 0.25 ng/ml INDICATIVE OF AN M.I. Performed By: #### 3 5200 ####[facility] TSHon 12-24-2017 Thyroid stimulating hormone (TSH) 0.57 MICRO-IU/ML Normal 0.34-5.60 [facility] Comment on above: Order Comment: No: D o not add to previous draw Performed By: #### 3 5200, 85104, 72711 ####[facility] UFH HEPARIN ASSAYon 12-25-19 18 UNFRACTIONATED HEPARIN 0.43 IU/mL Normal 0.30-0.70 [facility] Comment on above: Result Comment: Do roxaban and Apixaban will interfere with the anti Xa assay used tomonitor UFH and LMWH. Performed By: #### 3 5377, 64547, 58640 ####[facility] UNFRACTIONATED HEPARIN 0.56 IU/mL Normal 0.30-0.70 [facility] Comment on above: Result Comment: [place] roxaban and Apixaban will interfere with the anti Xa assay used tomonitor UFH and LMWH. Performed By: #### 3 0477 ####[facility] BASIC METABOLIC PANELon 03- Calcium 8.0 mg/dL Low 8.6-10.3 [facility] Comment on above: Order Comment: No: D o not add to previous draw Performed By: #### 3 5200, 67416, 28782 ####[facility] [place] [address], [facility] Chloride 117 mmol/L High 98-107 [facility] Comment on above: Order Comment: No: D o not add to previous draw Performed By: #### 3 5200, 24283, 17023 ####[facility]3000 [facility] [place] [place] [address], [facility] CO2 27 mmol/L Normal 21-31 [facility] Comment on above: Order Comment: No: D o not add to previous draw Performed By: #### 3 5200, 27402, 93575 ####[place] [address] [facility] [place] [address], [facility] Creatinine 0.78 mg/dL Normal 0.60-1.20 [facility] Comment on above: Order Comment: No: D o not add to previous draw Performed By: #### 3 5200, 75419, 82169 ####[facility]3000 [facility] [place] [address], [facility] eGFR (black) mL/min/{1.73_m2} Normal >60 [facility] Comment on above: Order Comment: No: D o not add to previous draw Performed By: #### 3 0, 10699, 94382 ####[facility]3000 [facility] [place] [address], [facility] eGFR (non-black) mL/min/{1.73_m2} Normal >60 Th e [facility] Comment on above: Order Comment: No: D o not add to previous draw Performed By: #### 3 5200, 08624, 07615 ####[facility]3000 [facility] [place] [place] [address], [facility] Glucose mass conc 93 mg/dL Normal 70-100 [facility] Comment on above: Order Comment: No: D o not add to previous draw Performed By: #### 3 5200, 89081, 61577 ####[facility] Potassium molar conc 4.2 mmol/L Normal 3.5-5.1 [facility] Comment on above: Order Comment: No: D o not add to previous draw Performed By: #### 3 5200, 34697, 58614 ####[facility] Sodium 144 mmol/L Normal 136-145 [facility] Comment on above: Order Comment: No: D o not add to previous draw Performed By: #### 3 5200, 80516, 15284 ####[facility] Urea nitrogen 15 mg/dL Normal 7-25 [facility] Comment on above: Order Comment: No: D o not add to previous draw Performed By: #### 3 5200, 95962, 49870 ####[facility] CBC COMPLETE BLOOD COUNTon 0 - Erythrocyte distribution width Auto Ratio (RBC) 13.4 % Normal 11.5-15.0 [facility] Comment on above: Order Comment: No: D o not add to previous draw Performed By: #### 5 0608 ####[facility] Erythrocytes (RBC) 3.58 10*6/uL Low 3.80-5.00 [facility] Comment on above: Order Comment: No: D o not add to previous draw Performed By: #### 5 0608 ####[facility] Erythrocytes (RBC) 0 % Normal 0-0 [facility] Comment on above: Order Comment: No: D o not add to previous draw Performed By: #### 5 0608 ####[facility] Hematocrit (HCT) 33.6 % Low 36.0-45.0 [facility] Comment on above: Order Comment: No: D o not add to previous draw Performed By: #### 5 0608 ####[facility] Hemoglobin mass conc (Bld) 10.4 g/dL Low 12.0-15.0 [facility] Comment on above: Order Comment: No: D o not add to previous draw Performed By: #### 5 0608 ####[address] MCH 29.1 pg Normal 27.0-33.0 [facility] Comment on above: Order Comment: No: D o not add to previous draw Performed By: #### 5 0608 ####[address] MCHC mass conc (RBC) 31.0 g/dL Low 32.0-35.0 [facility] Comment on above: Order Comment: No: D o not add to previous draw Performed By: #### 5 0608 ####[address] MCV 93.9 fL Normal 82.0-98.0 [facility] Comment on above: Order Comment: No: D o not add to previous draw Performed By: #### 5 0608 ####[place] [address] PLAT CNT 249 10*3/uL Normal 150-400 [facility] Comment on above: Order Comment: No: D o not add to previous draw Performed By: #### 5 0608 ####[address] WBC (Leukocytes) 5.9 10*3/uL Normal 4.0-10.6 [facility] Comment on above: Order Comment: No: D o not add to previous draw Performed By: #### 5 0608 ####[facility] CPK-MB PROFILEon 12-23-2017 CKMB 3.6 ng/mL Normal 0.0-5.0 [facility] Comment on above: Order Comment: No: D o not add to previous draw Result Comment: IF T OTAL CK <200 U/L AND: 1. CKMB IS 5-10 NG/ML----BORDERLINE 2. CKMB IS >10 NG/ML----INDICATIVE OF CT OR IF TOTAL CK >200 U/L AND CKMB INDEX >1.9----INDICATIVE OF CT Performed By: #### 3 5200, 76821, 48598 ####[facility] CKMB 4.9 ng/mL Critically high 0.0-1.9 [facility] Comment on above: Order Comment: No: D o not add to previous draw Performed By: #### 3 5200, 12510, 80537 ####[facility] Creatine kinase (CK) 73 U/L Normal 30-223 [facility] Comment on above: Order Comment: No: D o not add to previous draw Performed By: #### 3 5200, 16489, 77216 ####[facility] [place] [address], [facility] TROPONIN-Ion 12-23-2017 Troponin I.cardiac mass conc 0.00 ng/mL Normal 0.00-0.04 [facility] Comment on above: Order Comment: No: D o not add to previous draw Result Comment: REFE RENCE RANGES: 0.00 - 0.14 ng/ml NEGATIVE 0.15 - 0.25 ng/ml INDETERMINATE > 0.25 ng/ml INDICATIVE OF AN M.I. Performed By: #### 3 5200 ####[facility]3000 [facility].[address] Troponin I.cardiac mass conc 0.00 ng/mL Normal 0.00-0.04 [facility] Comment on above: Order Comment: No: D o not add to previous draw Result Comment: REFE RENCE RANGES: 0.00 - 0.14 ng/ml NEGATIVE 0.15 - 0.25 ng/ml INDETERMINATE > 0.25 ng/ml INDICATIVE OF AN M.I. Performed By: #### 3 5200, 07622, 27905 ####[facility]3000 [facility].[address] UFH HEPARIN ASSAYon 12-24-19 18 UNFRACTIONATED HEPARIN 0.52 IU/mL Normal 0.30-0.70 [facility] Comment on above: Result Comment: Do roxaban and Apixaban will interfere with the anti Xa assay used tomonitor UFH and LMWH. Performed By: #### 3 0477 ####[facility]3000 [facility].[address] Vital Signs Date Time Vital Sign Value Performing Clinician Crystal moore 07-22-2024 12:00-0400 Body height 165.1 cm Adryan CADE Work Phone: [facility] 07-22-2024 12:00-0400 Body mass index (BMI) [Ratio] 23.6 kg/m2 Adryan CADE Work Phone: [facility] 07-22-2024 12:00-0400 Body weight 64.32 kg Adryan CADE Work Phone: [facility] 07-22-2024 12:00-0400 Diastolic blood pressure 76 mm[Hg] Adryan Long APRNJonglaRAHEEM Work Phone: [facility] 07-22-2024 12:00-0400 Heart rate 113 /min Adryan CADE Work Phone: [facility] 07-22-2024 12:00-0400 Systolic blood pressure 114 mm[Hg] Adryan Long RAIMANN MACHINE OPERATOR-GLOBAL MARKETING COORDINATOR Work Phone: [facility] Encounters Encounter Date Encounter Type Care Provider Facility Start: 08-08-2024 End: 08-08-2024 Telephone encounter Nia Miranda RN [facility] Comment on above: Biotel strip Start: 07-22-2024 End: 08-29-2024 ambulatory ADRYAN LONG [facility] Start: 07-22-2024 End: 07-22-2024 Office outpatient visit 25 minutes Adryan Long RAIMANN MACHINE OPERATOR-GLOBAL MARKETING COORDINATOR Work Phone: [facility] Comment on above: Paroxysmal atrial fi brillation (CMS-HCC) (Primary Dx); Atrial flutter (CMS-HCC); Status post placement of implantable loop recorder Start: 07-22-2024 End: 07-22-2024 ambulatory ADRYAN LONG [facility] Start: 11-21-2022 End: 11-22-[address] LACEY MARION Facility:[facility] Start: 08-09-2022 End: 08-10-[address] LACEY MARION Facility:[facility] Start: 12-23-2017 End: 12-24-2017 Ambulatory BLAKE MEMBRENO Facility:[facility] Procedures Date Procedure Procedure Detail Performing Clinician Start: 07-22-2024 Ecg routine ecg w/le ast 12 lds w/i&r Adryan Long RAIMANN MACHINE OPERATOR-GLOBAL MARKETING COORDINATOR Work Phone: Start: 07-22-2024 Follow-up visit Follow-up ADRYAN LONG Start: 07-01-2019 Colonoscopy Adryan benson RAIMANN MACHINE OPERATOR-GLOBAL MARKETING COORDINATOR Work Phone: Start: 12-24-2017 FLUOROSCOPY OF MULTI PLE CORONARY ARTERIES USING OTH CONTRAST OJ ROCHA Plan of Treatment Date Care Activity Detail Author Start: 07-01-2029 Screening for malignant neoplasm of colon Colonoscopy [facility] Start: 07-22-2025 Adult BMI Screening Adult BMI Screen ing [facility] Start: 07-22-2025 Tobacco Screening Tobacco Screening [facility] Start: 10-26-2024 End: 10-26-2024 Patient encounter procedure 10/26/2024 10:30 AM EST Office Visit [facility] [address] [place] [address] Balwinder Plascencia MD [address] [place] [address] [facility] Start: 07-22-2024 End: 07-22-2025 Wireless Telemetry (In Office) [email or web address] Work Phone: Comment on above: Expected: 07/22/2024 , Expires: 07/22/2025 Start: 2021 Fall Risk Screening [facility] Start: 1975 DTaP,Tdap and Td Vaccines (1 - Tdap) DTaP,Tdap and Td Vaccines (1 - Tdap) [facility] Start: 1968 [facility] Start: 1955 Medicare Annual Wellness Visit Medicare Annual Wellness Visit [facility] Immunizations Immunization Date Immunization Notes Care Provider Fa lia 09-24-2018 pneumococcal polysaccharide vaccine, 23 valent Adryan Long RAIMANN MACHINE OPERATOR-GLOBAL MARKETING COORDINATOR [facility] Payers Date Payer Category Payer Medicare HMO AN[employer]M MEDICARE [id number] 2023 Medicare [id number] 2021 Unknown [id number] 1959 Unknown [id number] 1955 Unknown [id number] 1955 Unknown [id number] 1955 Unknown [id number] 1955 Unknown [id number] [facility] [id number] Medicare [employer] P [place] MEDICARE [employer] MEDICARE ADVANTAGE [id number] Effective for all dates [phone] [address] [place] [address] [id number] Social History Date Type Detail Facility Start: 07-22-2024 Tobacco smoking status NHIS Ex-smoker [facility] Start: 09-16-1972 History of tobacco use Current smoker [facility] Start: 09-16-1972 History of tobacco use Cigarette Smoker [facility] Start: 07-22-2024 Tobacco use and exposure Smokeless tobacco non-user [facility] Start: 07-22-2024 Alcoholic beverage intake Current drinker of alcohol (finding) [facility] Start: 09-08-2018 End: 11-29-2020 History of Social function [facility] Start: 09-08-2018 End: 11-29-2020 Alcohol Use Disorder Identification Test - Consumption [AUDIT-C] [facility] Frequency of Alcohol Consumption Never [facility] Start: 07-04-2023 Tobacco Comment maybe 3 cigarettes a day as of 06/23/2019 [facility] Start: 06-23-2019 Alcohol Comment socially [facility] Start: 1955 Sex assigned at Not on file [facility] Start: 05-24-2015 Sex Female (finding) [facility] Medical Equipment Procedure Code Equipment Code Equipment Origin al Text Equipment Identifier Dates Sys Crd Rvl Linq Rpl [id number] - [id number] - [id number] Start: 09-16-2018 Note 08-08-2024 Telephone Encounter - Nia Miranda RN - 08/08/2024 7:02 AM EDT Note Date & Type Note Facility 08-08-2024 Miscellaneous Notes Formattin g of this note might be different from the original. Rec'd urgent notification from [facility] showing new onset of aflutter, HR 121 from 08/07/2024 @19:10, pt reports taking medication at time of occurrence. Patient has hx of afib/ aflutter; ordered to determine if chronic or PAF. Pt is on Xarelto. Will continue to monitor. Strips placed to be scanned into the chart. [facility] Note 08-08-2024 Telephone Encounter - Nia Miranda RN - 08/08/2024 7:02 AM EDT Note Date & Type Note Facility 08-08-2024 Telephone encounter Note Rec'd urgent notification from [facility] showing new onset of aflutter, HR 121 from 08/07/2024 @19:10, pt reports taking medication at time of occurrence. Patient has hx of afib/ aflutter; ordered to determine if chronic or PAF. Pt is on Xarelto. Will continue to monitor. Strips placed to be scanned into the chart. [facility] History of Present illness Narrative 07-22-2024 Adryan Long APRN-RAHEEM - 07/22/2024 12:00 PM EDT Note Date & Type Note Facility 07-22-2024 History of Present illness Narrative Kwame Victoria Date of visit: 07/22/2024 Date of : 1955 Age: 69 y.o. Patient Active Problem List Diagnosis Paroxysmal atrial fibrillation ([facility]) Atrial flutter ([facility]) Tricuspid valve regurgitation Mitral valve regurgitation Pleural effusion Multiple closed fractures of cervical vertebrae ([facility]-HCC) Status post placement of implantable loop recorder Iron deficiency anemia due to chronic blood loss Occult blood positive stool Antral gastritis Diverticulosis large intestine w/o perforation or abscess w/o bleeding Cardiomyopathy ([facility]) Other fatigue No Known Allergies Current Outpatient Medications Medication Sig Dispense Refill levothyroxine (SYNTHROID, LEVOTHROID) 125 MCG tablet Take 1 tablet (125 mcg total) by mouth in the morning. pantoprazole (PROTONIX) 40 mg EC tablet Take 1 tablet (40 mg total) by mouth in the morning. rivaroxaban (XARELTO) 15 mg tablet Take 1 tablet (15 mg total) by mouth in the morning. TAKE 1 TABLET (15 MG TOTAL) BY MOUTH IN THE MORNING. 30 tablet 0 flecainide (TAMBOCOR) 50 mg tablet Take 1 tablet (50 mg total) by mouth in the morning and 1 tablet (50 mg total) before bedtime. 180 tablet 3 furosemide (LASIX) 20 mg tablet Take 1 tablet (20 mg total) by mouth daily as needed (lower extremity swelling). 90 tablet 3 metoprolol succinate XL (TOPROL XL) 50 mg 24 hr tablet Take 1 tablet (50 mg total) by mouth in the morning. 90 tablet 3 No current facility-administered medications for this visit. Chief Complaint Patient presents with Follow-up ov-13 month f/u Atrial Fibrillation Palpitations Edema Abdominal region History of Present Illness Kwame Victoria is a 69-year-old here for annual follow-up last visit in June of 2023. 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 She had a loop recorder implanted at that time. She has since established with Dr. Plascencia. Redo CTI and atrial tach RFA April 07, 2021. Recurrent rhythm issues and repeat cardioversion in August of 2021 for atypical atrial flutter/atrial tach. She was placed on flecainide for which he continues. Her loop recorder has reached end of service since implant. She does not monitor heart rate or blood pressures however she has noticed vague signs of recurrent arrhythmia over the past week. She has mild palpitations and also states she has noticed mild increase in swelling number lower extremities and mid section. She takes a diuretic daily. She is compliant to blood thinner and flecainide including Toprol. EKG confirming likely in atypical atrial flutter rates around 115 beats per minute. Unclear if this is paroxysmal versus persistent. I will have her wear a 2 week monitor and based on results may warrant cardioversion. Once we have those results update Dr. Plascencia on these findings to determine long-term course of action. We did briefly discuss potential of alternative antiarrhythmics. She has had several ablation so not sure that this would be an option. Patient is agreeable to plan. Past Medical History: Diagnosis Date A-fib (CMS-HCC) Anemia Arrhythmia Atrial flutter 09/16/2018 Blood transfusion abn reaction or complication, no procedure mishap GERD (gastroesophageal reflux disease) History of open heart surgery Hypothyroidism Near syncope 2006 Severe dysplasia of cervix Dr. Mejia Vision problems No data recorded No data recorded No data recorded Past Surgical History: Procedure Laterality Date ABLATION COLPOCLESIS Afib ablation - TAIWO N/A 09/16/2018 Performed by Danilo Campuzano DO at [facility] ANGIOGRAPHY 12/24/2017 Coronary; Dr. Rocha Atrial tachycardia x 2. CTI redo - SHAYY MARAVILLA ILR In situ N/A 03/28/2021 Performed by Balwinder Plascencia MD at [facility] CARDIOVERSION 02/26/2018 Dr. Membreno SECTION 1978 SECTION 1982 COLONOSCOPY N/A 07/01/2019 Performed by Harish Castro MD at [facility] EGD N/A 07/01/2019 Performed by Harish Castro MD at [facility] HYSTERECTOMY Loop recorder implant Left 09/16/2018 Performed by Danilo Campuzano DO at [facility] () MAZE PROCEDURE via open heart surgery MYRINGOTOMY with tube drainage OOPHORECTOMY TOTAL ABDOMINAL HYSTERECTOMY W/ BILATERAL SALPINGOOPHORECTOMY Family History Problem Relation Age of Onset Atrial fibrillation Mother Diabetes Mother Cancer Mother Lung cancer Mother Heart disease Father Prostate cancer Father Diabetes Father Heart disease Brother Cancer Brother Breast cancer Neg Hx Social History Socioeconomic History Marital status: Spouse name: Not on file Number of children: Not on file Years of education: Not on file Highest education level: Not on file Occupational History Not on file Tobacco Use Smoking status: Former Types: Cigarettes Start date: 09/16/1972 Smokeless tobacco: Never Tobacco comments: maybe 3 cigarettes a day as of 06/23/2019 Vaping Use Vaping status: Every Day Substances: Nicotine Substance and Sexual Activity Alcohol use: Yes Comment: socially Drug use: No Sexual activity: Defer Comment: not reviwed at this visit Other Topics Concern Caffeine Use Yes Social History Narrative Not on file Social Determinants of Health Financial Resource Strain: Not on file Food Insecurity: Not on file Transportation Needs: Not on file Physical Activity: Not on file Stress: Not on file Social Connections: Not on file Interpersonal Safety: Not on file Housing Instability: Not on file Review of Systems Review of Systems Constitutional: Negative for malaise/fatigue. HENT: Negative for nosebleeds. Respiratory: Negative for cough, hemoptysis and shortness of breath. Hematologic/Lymphatic: Does not bruise/bleed easily. Musculoskeletal: Negative for falls, joint swelling, muscle cramps and muscle weakness. Gastrointestinal: Positive for bloating. Negative for hematochezia. Genitourinary: Negative for hematuria. Neurological: Negative for dizziness, headaches and light-headedness. CARDIOVASCULAR: Please review HPI. Physical Examination General appearance: Alert, oriented and cooperative. In no acute distress. Skin: Warm and dry to touch. Head: Normocephalic, without obvious abnormality, atraumatic. Ears, Nose, Mouth, Throat: Throat clear without erythema or exudate. Dentition intact. Eyes: Conjunctivae unremarkable, EOM intact. Neck: No JVD, No carotid bruit. Neck supple, trachea midline. Respiratory: Clear to auscultation bilaterally, no use of accessory muscles. Cardiovascular: RRR with normal S1 and S2 with no murmurs. Gastrointestinal: Soft, non-tender. Bowel sounds normal. Musculoskeletal: No peripheral edema. Neurologic: Oriented to time, person and place, affect appropriate. No focal/major motor defects noted. Psychiatric: Appropriate mood, memory and judgement. VITAL SIGNS: BP 114/76 (BP Site: Left Arm, BP Postition: Sitting, BP CUFF SIZE: M (9-13 inches)) Pulse 113 Ht 165.1 cm (5' 5 ) Wt 64.3 kg (141 lb 12.8 oz) BMI 23.60 kg/m Orders Placed or Reconciled This Encounter Medications levothyroxine (SYNTHROID, LEVOTHROID) 125 MCG tablet Sig: Take 1 tablet (125 mcg total) by mouth in the morning. flecainide (TAMBOCOR) 50 mg tablet Sig: Take 1 tablet (50 mg total) by mouth in the morning and 1 tablet (50 mg total) before bedtime. Dispense: 180 tablet Refill: 3 furosemide (LASIX) 20 mg tablet Sig: Take 1 tablet (20 mg total) by mouth daily as needed (lower extremity swelling). Dispense: 90 tablet Refill: 3 metoprolol succinate XL (TOPROL XL) 50 mg 24 hr tablet Sig: Take 1 tablet (50 mg total) by mouth in the morning. Dispense: 90 tablet Refill: 3 Medications Discontinued During This Encounter Medication Reason levothyroxine (SYNTHROID, LEVOTHROID) 150 MCG tablet Dose adjustment flecainide (TAMBOCOR) 50 mg tablet Reorder furosemide (LASIX) 20 mg tablet Reorder metoprolol succinate XL (TOPROL XL) 50 mg 24 hr tablet Reorder [id number] Score: 2 2.2% Stroke risk per year, 2.9% risk of stroke/TIA/systemic embolism IMPRESSIONS/PLAN 1. Paroxysmal atrial fibrillation ([facility]) - POCT EKG - Wireless Telemetry (In Office); Future - flecainide (TAMBOCOR) 50 mg tablet; Take 1 tablet (50 mg total) by mouth in the morning and 1 tablet (50 mg total) before bedtime. Dispense: 180 tablet; Refill: 3 - furosemide (LASIX) 20 mg tablet; Take 1 tablet (20 mg total) by mouth daily as needed (lower extremity swelling). Dispense: 90 tablet; Refill: 3 - metoprolol succinate XL (TOPROL XL) 50 mg 24 hr tablet; Take 1 tablet (50 mg total) by mouth in the morning. Dispense: 90 tablet; Refill: 3 2. Atrial flutter ([facility]) - POCT EKG - Wireless Telemetry (In Office); Future 3. Status post placement of implantable loop recorder 1. Mildly symptomatic atrial flutter likely atypical with history of AFib/a flutter. Prior ablations for atrial fib 2017, atrial flutter with redo right-sided CTI, atrial tach April 07, 2021. 2. 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 Preserved LV function 4. High risks antiarrhythmic. Continues on flecainide/Toprol. 5. On Xarelto 15 mg due to creatinine clearance. She had lab work done recently at [facility]. Will obtain those results to confirm dosing. She will need prescription refill. Monitor to complete and if persistent arrhythmia may warrant cardioversion that was briefly discuss Tentative follow-up 3 months at the [place] office Patient seen while Dr. Kindra Honeycutt was immediately available in the office suite TODAYS ORDERS Orders Placed This Encounter Procedures Wireless Telemetry (In Office) POCT EKG FOLLOW UP Return in about 3 months (around 10/22/2024) for Next scheduled follow up . PCP: LACEY MARION MD Referring Physician: [place] [address] RAYO Suarez 07/22/24 [id number] documented in this encounter [facility] Clinical Note 11-21-2022 Note Date & Type Note Facility 11-21-2022 Note PROCEDURE: XR TOES R T MIN 2 V HISTORY: Pain of toe of right foot ; distal third toe pain of right foot; no known injury COMPARISON: None. FINDINGS: BONES:No fracture, acute abnormality, or significant arthropathy. SOFT TISSUES:No visible soft tissue swelling. EFFUSION:None visible. OTHER: Negative. IMPRESSION: 1. No acute bone abnormality or significant degenerative changes of the third toe of the right foot. Electronically authenticated by: ILANA PEREZ Date: 2022-11-21 13:01 [facility] Evaluation note Note Date & Type Note Facility Evaluation note Diagnosis Paroxysmal atrial fibrillation (CMS-HCC)- Primary Atrial fibrillation Atrial flutter (CMS-HCC) Status post placement of implantable loop recorder documented in this encounter [facility] Instructions Note Date & Type Note Facility Instructions Not on filedocumented in this en counter [facility] Instructions Note Date & Type Note Facility Instructions Not on filedocumented in this en counter [facility] Summary Purpose Family History No Family History Records FoundNo Family History Records FoundNo Family History Records FoundNo Family History Records Found Advance Directives No Advanced Directives Records Found Date Activated Date Inactivated Comments 10/17/2018 5:08 AM 10/18/2018 6:37 PM Date Activated Date Inactivated Comments 09/22/2018 8:35 AM 09/24/2018 3:13 PM Date Activated Date Inactivated Comments 09/16/2018 5:37 PM 09/17/2018 12:42 PM Date Activated Date Inactivated Comments 10/17/2018 5:08 AM 10/18/2018 6:37 PM Date Activated Date Inactivated Comments 09/22/2018 8:35 AM 09/24/2018 3:13 PM Date Activated Date Inactivated Comments 09/16/2018 5:37 PM 09/17/2018 12:42 PM Reason for Referral Specialty Diagnoses / Procedures Referred By Contac t Referred To Contact Diagnoses Paroxysmal atrial fibrillation ([facility]) Atrial flutter ([facility]) Procedures Wireless Telemetry (In Office) Adryan Long, RAIMANN MACHINE OPERATOR-GLOBAL MARKETING COORDINATOR [address] [place] [address] Referral ID Status Reason Start Date Expiration Date V isits Requested Visits Authorized [id number] Pending Review 07/22/2024 07/22/2025 1 1 Additional Source Comments INFORMATION SOURCE (unrecogn ized section and content) DATE CREATED AUTHOR 04/09/2018 [facility] DATE CREATED AUTHOR AUTHOR'S ORGANIZ ATION 04/20/2021 [facility] DATE CREATED AUTHOR AUTHOR'S ORGANIZ ATION 11/23/2022 [facility] DATE CREATED AUTHOR AUTHOR'S ORGANIZ ATION 08/30/2024 [facility] Reason for Visit (unrecogniz ed section and content) Reason Comments Follow-up ov-13 month f/u Atrial Fibrillation Palpitations Edema Abdominal region Reason Onset Date Comments Biotel strip 08/08/2024 Care Teams (unrecognized sec tion and content) Furnace Feeder Relationship Specialty Start Date End Date Lacey Marion MD PCP - General 09/08/18 Furnace Feeder Relationship Specialty Start Date End Date Lacey Marion MD PCP - General 09/08/18 FOR RECORDS PERTAINING TO PATIENTS WHO ARE OR HAVE BEEN ENROLLED IN A CHEMICAL DEPENDENCY/SUBSTANCEABUSE PROGRAM, SOME INFORMATION MAY BE OMITTED. This clinical summary was aggregated from multiple sources. Caution should be exercised in using it in the provision of clinical care. This summary normalizes information from multiple sources, and as a consequence, information in this document may materially change the coding, format and clinical context of patient data. In addition, data may be omitted in some cases. CLINICAL DECISIONS SHOULD BE BASED ON THE PRIMARY CLINICAL RECORDS. [employer] [facility] provides no warranty or guarantee of the accuracy or completeness of information in this document.
[2024-10-20 12:08] LABS: Basophils Absolute Auto 0.1 10^3/uL (0.0-0.1); Basophils Percent Auto 0.9 % (0.2-2.0); Eosinophils Absolute Auto 0.6 10^3/uL (0.0-0.7); Eosinophils Percent Auto 7.2 % (0.9-7.0); Hematocrit 43.5 % (36.0-48.0); Hemoglobin 14.2 g/dL (12.0-16.0); Immature Granulocytes Abs Auto 0.04 10^3/uL (0.00-0.03); Immature Granulocytes Pct Auto 0.5 % (0.0-0.5); Lymphocytes Absolute Auto 2.3 10^3/uL (1.2-3.8); Lymphocytes Percent Auto 25.8 % (20.5-60.0); Mean Corpuscular HGB Conc 32.6 g/dL (29.9-35.2); Mean Corpuscular Hemoglobin 31.4 pg (26.7-34.0); Mean Corpuscular Volume 96.2 fL (81.0-99.0); Mean Platelet Volume 9.7 fL (9.5-13.5); Monocytes Absolute Auto 0.6 10^3/uL (0.3-0.8); Monocytes Percent Auto 6.4 % (1.7-12.0); Neutrophils Absolute Auto 5.2 10^3/uL (1.4-6.5); Neutrophils Percent Auto 59.2 % (43.0-75.0); Platelet Count 224 10^3/uL (150-450); Red Blood Count 4.52 10^6/uL (4.20-5.40); Red Cell Distribution Width 13.1 % (11.0-15.0); White Blood Count 8.8 10^3/uL (4.0-11.0)
[2024-10-20 12:13] LABS: Alanine Aminotransferase 44 U/L (14-59); Albumin Level 3.5 g/dL (3.4-5.0); Alkaline Phosphatase 74 U/L (46-116); Aspartate Amino Transferase 17 U/L (15-37); BUN Creatinine Ratio 19.6; Bilirubin Total 0.4 mg/dL (0.2-1.0); Calcium 8.8 mg/dL (8.5-10.1); Carbon Dioxide 29.1 mmol/L (21.0-32.0); Chloride 106 mmol/L (98-107); Estimated GFR (African America 42 (>=60 mL/min/1.73m^2); Estimated GFR (Non-African Ame 35 (>=60 mL/min/1.73m^2); Free T3 1.68 pg/mL (2.18-3.98); Globulin 3.5 g/dL; Glucose 98 mg/dL (74-106); Potassium 4.1 mmol/L (3.5-5.1); Sodium 143 mmol/L (136-145); Thyroid Stimulating Hormone 0.964 uIU/mL (0.358-3.740)
== END 2024-10-20 11:18 | disposition home or self-care (01) ==
PROVIDERS: PCP Family Medicine; Visit Provider Family Medicine
DX: E03.9 Hypothyroidism, unspecified (principal); R53.83 Other fatigue; I10 Essential (primary) hypertension
CPT/HCPCS: 36415; 80053; 84436; 84443; 84481; 85025

== ENCOUNTER 2024-11-22 13:07 | Outpatient (OUT) | payer MEDICARE, SELFPAY ==
--- OUTSIDE RECORDS SUMMARY | 2024-11-22 13:28 | XMS_ITS | CCD ---
Author Organization [facility] CliniSyar Care Team Providers Care Vegetable Loader Name Role Phone BLAKE MEMBRENO AM Unavailable Unavailable BLAKE MEMBRENO AM Unavailable Unavailable UNKNOWN, PROVIDER Unavailable Unavailable LACEY MARION Unavailable Unavailable LA Unavailable Unavailable UNKNOWN, PROVIDER Unavailable Unavailable PASCALE, DR RAHMAN Primary Care Unavailable ONELIA, DR LEIA Duggan Consulting Unavailable ONELIA, DR LEAI Duggan Attending Unavailable ONELIA, DR LEIA Duggan Admitting Unavailable CARIDAD ZAMORA Consulting Unavailable SHAIKH Leonor CHRISTENSEN Consulting Unavailable BEAN SCHAFFER Consulting Unavailable PASCALE, DR RAHMAN Attending Unavailable PASCALE, DR RAHMAN Admitting Unavailable PASCALE, DR RAHMAN Primary Care Unavailable PASCALE, DR RAHMAN Consulting Unavailable ANA, DR ILANA Balderrama Consulting Unavailable Lacey Marion MD Primary Care Provider ADRYAN LONG Attending Unavailable LACEY MARION Referring Unavailable LACEY MARION Primary Care Unavailable ADRYAN LONG Referring Unavailable LACEY MARION Primary Care Unavailable SHERYL PLASCENCIA Attending Unavailable LACEY MARION Referring Unavailable LACEY MARION Primary Care Unavailable Medications Current Medications Medication Drug Class(es) Dates Sig (Normalized) Sig (Original) flecainide acetate 100 mg oral tablet (7 sources) Antiarrhythmic Start: 08-30-2024 take 1 tablet by mouth in the morning, then take 1 tablet by mouth at bedtime flecainide (TAMBOCOR) 100 mg tablet Indications: Paroxysmal atrial fibrillation (CMS-HCC) Take 1 tablet (100 mg total) by mouth in the morning and 1 tablet (100 mg total) before bedtime. 60 tablet 6 08/30/2024 Active Start: 07-04-2023 End: 07-22-2024 take 1 tablet by mouth in the morning, then take 1 tablet by mouth at bedtime flecainide (TAMBOCOR) 50 mg tablet Indications: Paroxysmal atrial fibrillation (CMS-HCC) Take 1 tablet (50 mg total) by mouth in the morning and 1 tablet (50 mg total) before bedtime. 180 tablet 3 07/22/2024 Active furosemide 20 mg oral tablet (7 sources) Loop Diuretic Start: 07-04-2023 End: 07-22-2024 take 1 tablet by mouth once daily as needed furosemide (LASIX) 20 mg tablet Indications: Paroxysmal atrial fibrillation (CMS-HCC) Take 1 tablet (20 mg total) by mouth daily as needed (lower extremity swelling). 90 tablet 3 07/22/2024 Active levothyroxine sodium 0.125 mg oral tablet (7 sources) l-Thyroxine take 1 tablet by mouth in the morning levothyroxine (SYNTHROID, LEVOTHROID) 125 MCG tablet Take 1 tablet (125 mcg total) by mouth in the morning. Active End: 07-22-2024 take 1 tablet by mouth in the morning levothyroxine (SYNTHROID, LEVOTHROID) 150 MCG tablet Take 1 tablet (150 mcg total) by mouth in the morning. 07/22/2024 Discontinued (Dose adjustment) liothyronine sodium 0.005 mg oral tablet (3 sources) l-Triiodothyronine take 2 tablets by mouth in the morning liothyronine (CYTOMEL) 5 MCG tablet Take 2 tablets (10 mcg total) by mouth in the morning. Active 24 hr metoprolol succinate 50 mg extended release oral tablet (7 sources) beta-Adrenergic Danica Start: 2022 End: 2023 take 1 tablet by mouth every twenty-four hours in the morning metoprolol succinate XL (TOPROL XL) 50 mg 24 hr tablet Indications: Paroxysmal atrial fibrillation (CMS-HCC) Take 1 tablet (50 mg total) by mouth in the morning. 90 tablet 3 07/22/2024 Active pantoprazole 40 mg delayed release oral tablet (6 sources) Proton Pump Inhibitor take 1 tablet by mouth in the morning pantoprazole (PROTONIX) 40 mg EC tablet Take 1 tablet (40 mg total) by mouth in the morning. Active rivaroxaban 15 mg oral tablet (6 sources) Factor Xa Inhibitor Start: 2023 take 1 tablet by mouth in the morning, then take 1 tablet by mouth in the morning rivaroxaban (XARELTO) 15 mg tablet Indications: Paroxysmal atrial fibrillation (CMS-HCC) , Atrial flutter (CMS-HCC) Take 1 tablet (15 mg total) by mouth in the morning. TAKE 1 TABLET (15 MG TOTAL) BY MOUTH IN THE MORNING. 30 tablet 6 07/22/2024 Active sulfamethoxazole 800 mg / trimethoprim 160 mg oral tablet (3 sources) Dihydrofolate Reductase Inhibitor Antibacterial, Sulfonamide Antimicrobial take 1 tablet by mouth once in the morning sulfamethoxazole-t rimethoprim (BACTRIM DS) 800-160 mg per tablet Take 1 tablet by mouth in the morning and 1 tablet before bedtime. Active Problems Active Problems Problem Classification Problem Date Documented Da te Episodic/Chronic Cardiac dysrhythmias (20 sources) Unspecified atrial fibrillation; Translations: [Unspecified atrial flutter] Onset: 12-23-2017 07-22-2024 Chronic Cardiac dysrhythmias (1 source) Palpitations Onset: 07-22-2024 Episodic Conduction disorders (2 sources) Pre-excitation syndrome; Translations: [PRE-EXCITATION SYNDROME] Onset: 12-23-2017 Chronic Congestive heart failure; nonhypertensive (4 sources) Acute combined systolic (congestive) and diastolic (congestive) heart failure; Translations: [ACUTE COMB SYSTOLIC AND DIASTOLIC CHF] Onset: 08-09-2022 Chronic Deficiency and other anemia (6 sources) Iron deficiency anemia due to blood loss; Translations: [Iron deficiency anemia secondary to blood loss (chronic)] Onset: 06-23-2019 06-23-2019 Chronic Diverticulosis and diverticulitis (6 sources) Diverticulosis of large intestine; Translations: [Diverticulosis of large intestine without perforation or abscess without bleeding] Onset: 07-11-2019 07-11-2019 Chronic Esophageal disorders (1 source) Gastro-esophageal reflux disease without esophagitis; Translations: [GERD WITHOUT ESOPHAGITIS] Onset: 08-13-2022 Chronic Gastritis and duodenitis (6 sources) Gastritis; Translations: [Unspecified chronic gastritis without bleeding] Onset: 07-11-2019 07-11-2019 Chronic Heart valve disorders (13 sources) Rheumatic disorders of both mitral and tricuspid valves; Translations: [Tricuspid valve regurgitation] Onset: 12-23-2017 09-07-2018 Chronic Nutritional deficiencies (1 source) Unspecified protein-calorie malnutrition; Translations: [UNSPECIFIED PROTEIN-CALORIE MALNUTRITION] Onset: 12-23-2017 Chronic Osteoarthritis (1 source) Unspecified osteoarthritis, unspecified site; Translations: [UNSPECIFIED OSTEOARTHRITIS UNS SITE] Onset: 08-13-2022 Chronic Other circulatory disease (7 sources) History of cardiovascular surgery; Translations: [Presence [...] caused by tuberculosis or sexually transmitted disease) (6 sources) Cardiomyopathy; Translations: [Cardiomyopathy, unspecified] Onset: 01-30-2021 [...] IMMUNIZATION] Onset: 2 Episodic Malaise and fatigue (6 sources) Fatigue; Translations: [Other fatigue] Onset: 2 06-30-2022 Episodic Nonspecific chest pain (3 sources) Chest pain, unspecified; Translations: [CHEST PAIN, UNSPECIFIED] Onset: 8 Episodic Other aftercare (1 source) terminal makeup operator (current) use of antithrombotics/antipl atelets; Translations: [JAIL (CURRENT) USE OF ANTITHROMBOTICS/ANTIPL ATELETS] Onset: 8 Episodic Other aftercare (1 source) Other manager long term care (current) drug therapy; Translations: [OTH JAIL CURRENT DRUG THERAPY] Onset: 2 Episodic Other aftercare (1 source) terminal makeup operator (current) use of anticoagulants; Translations: [DIRECTOR QUALITY SYSTEMS CURRNT USE ANTICOAGULANTS] Onset: 2 Episodic Other fractures (6 sources) Multiple closed fractures of cervical vertebrae; Translations: [Fracture of neck, unspecified, initial encounter] Onset: 8 10-18-2018 Episodic Other gastrointestinal disorders (6 sources) Occult blood in stools; Translations: [Other fecal abnormalities] Onset: 9 06-23-2019 Episodic Pleurisy; pneumothorax; pulmonary collapse (6 sources) Pleural effusion; Translations: [Pleural effusion, not elsewhere classified] Onset: 8 09-22-2018 Episodic Residual codes; unclassified (1 source) Acquired absence of both cervix and uterus; Translations: [ACQUIRED ABSENCE BOTH CERVIX AND UTERUS] Onset: 2 Episodic Unclassified (1 source) Body mass index (BMI) 21.0-21.9, adult; Translations: [BODY MASS INDEX (BMI) 21.0-21.9, ADULT] Onset: 8 Episodic Results Test Name Value Interpretation Reference Range Facility POCT EKn 10-26-2024 [facility] POCT EKGon 07-22-2024 [facility] PRBC LEUKOREDUCEDon 08-12-20 22 ABO and Rh group Nom (Bld) Cross Match Result Compatible Unit Blood Type O Pos Unit Number [id number] Status Information Transfused Product ID Red Blood Cells Product Code [id number] Cross Match Result Compatible Unit Blood Type O Pos Unit Number [id number] Status Information Transfused Product ID Red Blood Cells Product Code [id number] Normal [facility] Comment on above: Performed By: #### C NEEL, BMP #### [facility] [address] [place] [address] Dr. Radha Charlton BNPon 08-10-2022 Natriuretic peptide B (Bld) [Mass/Vol] 2858.0 pg/mL Critically high <=900.0 [facility] Comment on above: Performed By: #### C NAZIA, BMP #### [facility] [address] [place] [address] Dr. Radha Charlton HEMOGLOBIN AND HEMATOCRITon 08-10-2022 Hematocrit (Bld) [Volume fraction] 31.4 % Critically low 36.0-48.0 [facility] Comment on above: Performed By: #### H GBHCT #### [facility] [address] [place] [address] Dr. Radha Charlton Hemoglobin (Bld) [Mass/Vol] 9.4 g/dL Critically low 12.0-16.0 [facility] Comment on above: Performed By: #### H GBHCT #### [facility] [address] [place] [address] Dr. Radha Charlton Hematocrit (Bld) [Volume fraction] 29.1 % Critically low 36.0-48.0 [facility] Comment on above: Performed By: #### C NAZIA, BMP #### [facility] [address] [place] [address] Dr. Radha Charlton Hemoglobin (Bld) [Mass/Vol] 8.8 g/dL Critically low 12.0-16.0 [facility] Comment on above: Performed By: #### C NAZIA, BMP #### [facility] [address] [place] [address] Dr. Radha Charlton PROF 14(COMP METB)on 022 Albumin [Mass/Vol] 2.7 g/dL Critically low 3.4-5.0 [facility] Comment on above: Performed By: #### C NAZIA, BMP #### [facility] [address] [place] [address] Dr. Radha Charlton Albumin/Globulin [Mass ratio] 0.9 {ratio} Normal [facility] Comment on above: Performed By: #### C NAZIA, BMP #### [facility] [address] [place] [address] Dr. Radha Charlton ALP [Catalytic activity/Vol] 71 U/L Normal 46-116 [facility] Comment on above: Performed By: #### C NAZIA, BMP #### [facility] [address] [place] [address] Dr. Radha Charlton ALT [Catalytic activity/Vol] 49 U/L Normal 14-59 [facility] Comment on above: Performed By: #### C NAZIA, BMP #### [facility] [address] [place] [address] Dr. Radha Charlton Anion gap [Moles/Vol] 10.0 mmol/L Normal [facility] Comment on above: Performed By: #### C NAZIA, BMP #### [facility] [address] [place] [address] Dr. Radha Charlton AST [Catalytic activity/Vol] 31 U/L Normal 15-37 [facility] Comment on above: Performed By: #### C NAZIA, BMP #### [facility] [address] [place] [address] Dr. Radha Charlton Bilirubin [Mass/Vol] 0.3 mg/dL Normal 0.2-1.0 [facility] Comment on above: Performed By: #### C NAZIA, BMP #### [facility] [address] [place] [address] Dr. Radha Charlton Calcium [Mass/Vol] 8.2 mg/dL Critically low 8.5-10.1 [facility] Comment on above: Performed By: #### C NAZIA, BMP #### [facility] [address] [place] [address] Dr. Radha Charlton Chloride [Moles/Vol] 111 mmol/L Critically high 98-107 [facility] Comment on above: Performed By: #### C NAZIA, BMP #### [facility] [address] [place] [address] Dr. Radha Charlton CO2 [Moles/Vol] 26.4 mmol/L Normal 21.0-32.0 [facility] Comment on above: Performed By: #### C NAZIA, BMP #### [facility] [address] [place] [address] Dr. Radha Charlton Creatinine [Mass/Vol] 1.26 mg/dL Critically high 0.55-1.02 [facility] Comment on above: Performed By: #### C NEELM, BMP #### [facility] [address] [address] [address] Radha Charlton EGFR-AF SWAZI 51 mL/min/1.73m2 Critically low >=60 [facility] Comment on above: Performed By: #### C NEELM, BMP #### [facility] [address] [address] [address] Radha Charlton EGFR-NON AF SWAZI 42 mL/min/1.73m2 Critically low >=60 [facility] Comment on above: Performed By: #### C NEELM, BMP #### [facility] [address] [address] [address] Radha Charlton Globulin (S) [Mass/Vol] 2.9 g/dL Normal [facility] Comment on above: Performed By: #### C NEELM, BMP #### [facility] [address] [address] [address] Radha Charlton Glucose [Mass/Vol] 114 mg/dL Critically high 74-106 [facility] Comment on above: Performed By: #### C NAZIA, BMP #### [facility] [address] [place] [address] Dr. Radha Charlton Potassium [Moles/Vol] 3.4 mmol/L Critically low 3.5-5.1 [facility] Comment on above: Performed By: #### C NEELM, BMP #### [facility] [address] [address] [address] Radha Charlton Protein [Mass/Vol] 5.6 g/dL Critically low 6.4-8.2 [facility] Comment on above: Performed By: #### C NEELM, BMP #### [facility] [address] [address] [address] Radha Charlton Sodium [Moles/Vol] 144 mmol/L Normal 136-145 [facility] Comment on above: Performed By: #### C NEELM, BMP #### [facility] [address] [place] [address] Dr. Radha Charlton Urea nitrogen [Mass/Vol] 29.0 mg/dL Critically high 7.0-18.0 [facility] Comment on above: Performed By: #### C NAZIA, BMP #### [facility] [address] [place] [address] Dr. Radha Charlton Urea nitrogen/Creatini ne [Mass ratio] 23.0 mg/mg Normal [facility] Comment on above: Performed By: #### C NAZIA, BMP #### [facility] [address] [place] [address] Dr. Radha Charlton BNPon 08-09-2022 Natriuretic peptide B (Bld) [Mass/Vol] 3320.0 pg/mL Critically high <=900.0 [facility] Comment on above: Performed By: #### C NAZIA, BMP #### [facility] [address] [place] [address] Dr. Radha Charlton CARDIAC BENJI 3-6on 2 CK [Catalytic activity/Vol] 97 U/L Normal 26-192 [facility] Comment on above: Performed By: #### C NAZIA, BMP #### [facility] [address] [place] [address] Dr. Radha Charlton CK.MB [Mass/Vol] 1.73 ng/mL Normal <=3.60 [facility] Comment on above: Performed By: #### C NAZIA, BMP #### [facility] [address] [place] [address] Dr. Radha Charlton HSTROP 11.9 pg/mL Normal 4.0-51.3 [facility] Comment on above: Result Comment: CUT- OFF POINTS HAVE BEEN ESTABLISHED BASED ON THE FOURTH UNIVERSAL DEFINITIONS OF MYOCARDIAL INFARCTION. THE UPPER REFERENCE LIMIT (URL) OF TROPONIN, DEFINED THE 99TH PERCENTILE OF cTnI DISTRIBUTION IN A REFERENCE POPULATION, HAS BEEN CONFIRMED THE DECISION THRESHOLD FOR ME DIAGNOSIS. Performed By: #### C NAZIA, BMP #### [facility] [address] [place] [address] Dr. Radha Charlton CK [Catalytic activity/Vol] 88 U/L Normal 26-192 [facility] Comment on above: Performed By: #### C NAZIA, BMP #### [facility] [address] [place] [address] Dr. Radha Charlton CK.MB [Mass/Vol] 1.73 ng/mL Normal <=3.60 [facility] Comment on above: Performed By: #### C NAZIA, BMP #### [facility] [address] [place] [address] Dr. Radha Charlton HSTROP 14.3 pg/mL Normal 4.0-51.3 [facility] Comment on above: Result Comment: CUT- OFF POINTS HAVE BEEN ESTABLISHED BASED ON THE FOURTH UNIVERSAL DEFINITIONS OF MYOCARDIAL INFARCTION. THE UPPER REFERENCE LIMIT (URL) OF TROPONIN, DEFINED THE 99TH PERCENTILE OF cTnI DISTRIBUTION IN A REFERENCE POPULATION, HAS BEEN CONFIRMED THE DECISION THRESHOLD FOR ME DIAGNOSIS. Performed By: #### C NAZIA, BMP #### [facility] [address] [place] [address] Dr. Radha Charlton CARDIAC BENJI ADMITon 022 CK [Catalytic activity/Vol] 116 U/L Normal 26-192 [facility] Comment on above: Performed By: #### C NAZIA, BMP #### [facility] [address] [place] [address] Dr. Radha Charlton CK.MB [Mass/Vol] 2.32 ng/mL Normal <=3.60 [facility] Comment on above: Performed By: #### C NAZIA, BMP #### [facility] [address] [place] [address] Dr. Radha Charlton HSTROP 16.2 pg/mL Normal 4.0-51.3 [facility] Comment on above: Result Comment: CUT- OFF POINTS HAVE BEEN ESTABLISHED BASED ON THE FOURTH UNIVERSAL DEFINITIONS OF MYOCARDIAL INFARCTION. THE UPPER REFERENCE LIMIT (URL) OF TROPONIN, DEFINED THE 99TH PERCENTILE OF cTnI DISTRIBUTION IN A REFERENCE POPULATION, HAS BEEN CONFIRMED THE DECISION THRESHOLD FOR ME DIAGNOSIS. Performed By: #### C NAZIA, BMP #### [facility] [address] [place] [address] Dr. Radha Charlton VINICIO 95 ng/mL Critically high 9-82 [facility] Comment on above: Performed By: #### C NEELM, BMP #### [facility] [address] [place] [address] Dr. Radha Charlton CBC AUTO DIFFon 08-09-2022 BASO # 0.1 103/ul Normal 0.0-0.1 [facility] Comment on above: Performed By: #### C NEELM, BMP #### [facility] [address] [place] [address] Dr. Radha Charlton Basophils/100 WBC (Bld) 0.7 % Normal 0.2-2.0 [facility] Comment on above: Performed By: #### C NAZIA, BMP #### [facility] [address] [place] [address] Dr. Radha Charlton EO # 0.3 103/ul Normal 0.0-0.7 [facility] Comment on above: Performed By: #### C NAZIA, BMP #### [facility] [address] [place] [address] Dr. Radha Charlton Eosinophils/100 WBC (Bld) 3.2 % Normal 0.9-7.0 [facility] Comment on above: Performed By: #### C NAZIA, BMP #### [facility] [address] [place] [address] Dr. Radha Charlton Erythrocyte distribution width (RBC) [Ratio] 19.4 % Critically high 11.0-15.0 [facility] Comment on above: Performed By: #### C NAZIA, BMP #### [facility] [address] [place] [address] Dr. Radha Charlton Hematocrit (Bld) [Volume fraction] 25.1 % Critically low 36.0-48.0 [facility] Comment on above: Performed By: #### C NAZIA, BMP #### [facility] [address] [place] [address] Dr. Radha Charlton Hemoglobin (Bld) [Mass/Vol] 7.0 g/dL Critically low 12.0-16.0 [facility] Comment on above: Performed By: #### C NAZIA, BMP #### [facility] [address] [address] [address] Radha Charlton IG # 0.05 10e3/ul Critically high 0.00-0.03 [facility] Comment on above: Performed By: #### C NEELM, BMP #### [facility] [address] [address] [address] Radha Charlton IG % 0.5 % Normal 0.0-0.5 [facility] Comment on above: Performed By: #### C NAZIA, BMP #### [facility] [address] [address] [address] Radha Charlton LYMPH # 2.0 103/ul Normal 1.2-3.8 [facility] Comment on above: Performed By: #### C NAZIA, BMP #### [facility] [address] [place] [address] Dr. Radha Charlton Lymphocytes/100 WBC (Bld) 18.9 % Critically low 20.5-60.0 [facility] Comment on above: Performed By: #### C NAZIA, BMP #### [facility] [address] [place] [address] Dr. Radha Charlton MANUAL DIFF REQ NO Normal [facility] Comment on above: Performed By: #### C NAZIA, BMP #### [facility] [address] [place] [address] Dr. Radha Charlton MCH (RBC) [Entitic mass] 21.6 pg Critically low 26.7-34.0 [facility] Comment on above: Performed By: #### C NAZIA, BMP #### [facility] [address] [place] [address] Dr. Radha Charlton MCHC (RBC) [Mass/Vol] 27.9 g/dL Critically low 29.9-35.2 [facility] Comment on above: Performed By: #### C NAZIA, BMP #### [facility] [address] [place] [address] Dr. Radha Charlton MCV (RBC) [Entitic vol] 77.5 fL Critically low 81.0-99.0 [facility] Comment on above: Performed By: #### C MADM, BMP #### [facility] [address] [place] [address] Dr. Radha Charlton MONO # 1.0 103/ul Critically high 0.3-0.8 [facility] Comment on above: Performed By: #### C MADM, BMP #### [facility] [address] [place] [address] Dr. Rdaha Charlotn Monocytes/100 WBC (Bld) 9.5 % Normal 1.7-12.0 [facility] Comment on above: Performed By: #### C MADM, BMP #### [facility] [address] [place] [address] Dr. Radha Charlton NEUT # 7.0 103/ul Critically high 1.4-6.5 [facility] Comment on above: Performed By: #### C MADM, BMP #### [facility] [address] [place] [address] Dr. Radha Charlton Neutrophils/100 WBC (Bld) 67.2 % Normal 43.0-75.0 [facility] Comment on above: Performed By: #### C MADM, BMP #### [facility] [address] [place] [address] Dr. Radha Charlton Platelet mean volume (Bld) [Entitic vol] 10.0 fL Normal 9.5-13.5 [facility] Comment on above: Performed By: #### C MADM, BMP #### [facility] [address] [place] [address] Dr. Radha Charlton PLT 308 103/ul Normal 150-450 [facility] Comment on above: Performed By: #### C MADM, BMP #### [facility] [address] [place] [address] Dr. Radha Charlton RBC 3.24 106/ul Critically low 4.20-5.40 [facility] Comment on above: Performed By: #### C MADM, BMP #### [facility] [address] [place] [address] Dr. Radha Charlton WBC 10.4 103/ul Normal 4.0-11.0 [facility] Comment on above: Performed By: #### C NEEL, [facility] #### [facility] [address] [address] [address] Radha Charlton CTA CHEST WO W CONon 022 CTA CHEST WO W CON EXAMINATION: CTA [...] BEAN SCHAFFER Date: 2022-08-09 03:39 Normal [facility] Covid-19 PCR (CVDTB)on 07-20 SARS-CoV-2 (COVID-19) RNA EMILIA+probe Ql (Unsp spec) Not detected Normal NOT DETECTED [facility] Comment on above: Result Comment: When [...] for this test is supported by the [place] of Health and Human Service's declaration that [...] Performed By: #### C YISEL MANDUJANO #### [facility] [address] [place] [address] Dr. Radha Charlton D-DIMERon 08-09-2022 D-DIMER 1.36 mg/L FEU Critically high <=0.59 [facility] Comment on above: Performed By: #### C YISEL MANDUJANO #### [facility] [address] [address] [address] Radha Charlton D-DIMER COMMENTS SEE BELOW Normal [facility] Comment on above: Result Comment: Incr eases [...] Performed By: #### C MADM, BMP #### [facility] [address] [place] [address] Dr. Radha Charlton FREE T3on 08-09-2022 FREE T3 1.79 pg/mlL Critically low 2.18-3.98 [facility] Comment on above: Performed By: #### C MADM, BMP #### [facility] [address] [place] [address] Dr. Radha Charlton FREE T4on 08-09-2022 Free T4 [Mass/Vol] 1.43 ng/dL Normal 0.76-1.46 [facility] Comment on above: Performed By: #### F T4, FETIBC, B12FOL #### [facility] [address] [place] [address] Dr. Radha Charlton HEMOGLOBIN AND HEMATOCRITon 08-09-2022 Hematocrit (Bld) [Volume fraction] 29.5 % Critically low 36.0-48.0 [facility] Comment on above: Performed By: #### H GBHCT #### [facility] [address] [place] [address] Dr. Radha Charlton Hemoglobin (Bld) [Mass/Vol] 9.0 g/dL Critically low 12.0-16.0 [facility] Comment on above: Performed By: #### H GBHCT #### [facility] [address] [place] [address] Dr. Radha Charlton Hematocrit (Bld) [Volume fraction] 28.7 % Critically low 36.0-48.0 [facility] Comment on above: Performed By: #### H GBHCT #### [facility] [address] [address] [address] Radha Charlton Hemoglobin (Bld) [Mass/Vol] 8.7 g/dL Critically low 12.0-16.0 [facility] Comment on above: Performed By: #### H GBHCT #### [facility] [address] [address] [address] Radha Charlton INFLUENZA A AND B AGon 08-09 INFLUENZA A AG Negative Normal NEGATIVE SEE COMMENT [facility] Comment on above: Performed By: #### I NFLUAB #### [facility] [address] [place] [address] Dr. Radha Charlton INFLUENZA B AG Negative Normal NEGATIVE SEE COMMENT [facility] Comment on above: Performed By: #### I NFLUAB #### [facility] [address] [place] [address] Dr. Radha Charlton INTERNAL CONTROLS Within Normal Limits Normal Wi thin Normal Limits [facility] Comment on above: Performed By: #### I NFLUAB #### [facility] [address] [place] [address] Dr. Radha Charlton IRON AND TIBCon 08-09-2022 % SATURATION 3.5 % Normal [facility] Comment on above: Performed By: #### F T4, FETIBC, B12FOL #### [facility] [address] [address] [address] Radha Charlton Iron [Mass/Vol] 16.0 ug/dL Critically low 50.0-170.0 [facility] Comment on above: Performed By: #### F T4, FETIBC, B12FOL #### [facility] [address] [place] [address] Dr. Radha Charlton TIBC DIRECT 463.0 ug/dL Critically high 250.0-450. 0 [facility] Comment on above: Performed By: #### F T4, FETIBC, B12FOL #### [facility] [address] [place] [address] Dr. Radha Charlton OCC BLD IMMUNO SCREENon OCCULT BLOOD Positive Abnormal NEGATIVE [facility] Comment on above: Performed By: #### O BSCRN #### [facility] [address] [place] [address] Dr. Radha Charlton PROF CHEM 8 (BAS METB)on Anion gap [Moles/Vol] 12.4 mmol/L Normal [facility] Comment on above: Performed By: #### C NEELM, BMP #### [facility] [address] [place] [address] Dr. Radha Charlton Calcium [Mass/Vol] 8.0 mg/dL Critically low 8.5-10.1 [facility] Comment on above: Performed By: #### C NEELM, BMP #### [facility] [address] [place] [address] Dr. Radha Charlton Chloride [Moles/Vol] 109 mmol/L Critically high 98-107 [facility] Comment on above: Performed By: #### C NEELM, BMP #### [facility] [address] [place] [address] Dr. Radha Charlton CO2 [Moles/Vol] 22.4 mmol/L Normal 21.0-32.0 [facility] Comment on above: Performed By: #### C NAZIA, BMP #### [facility] [address] [place] [address] Dr. Radha Charlton Creatinine [Mass/Vol] 1.62 mg/dL Critically high 0.55-1.02 [facility] Comment on above: Performed By: #### C NEELM, BMP #### [facility] [address] [place] [address] Dr. Radha Charlton EGFR-AF SWAZI 39 mL/min/1.73m2 Critically low >=60 [facility] Comment on above: Performed By: #### C NEELM, BMP #### [facility] [address] [place] [address] Dr. Radha Charlton EGFR-NON AF SWAZI 32 mL/min/1.73m2 Critically low >=60 [facility] Comment on above: Performed By: #### C NEELM, BMP #### [facility] [address] [place] [address] Dr. Radha Charlton Glucose [Mass/Vol] 124 mg/dL Critically high 74-106 [facility] Comment on above: Performed By: #### C NAZIA, BMP #### [facility] [address] [place] [address] Dr. Radha Charlton Potassium [Moles/Vol] 3.8 mmol/L Normal 3.5-5.1 [facility] Comment on above: Performed By: #### C NAZIA, BMP #### [facility] [address] [place] [address] Dr. Radha Charlton Sodium [Moles/Vol] 140 mmol/L Normal 136-145 [facility] Comment on above: Performed By: #### C NAZIA, BMP #### [facility] [address] [place] [address] Dr. Radha Charlton Urea nitrogen [Mass/Vol] 34.0 mg/dL Critically high 7.0-18.0 [facility] Comment on above: Performed By: #### C NAZIA, BMP #### [facility] [address] [place] [address] Dr. Radha Charlton Urea nitrogen/Creatini ne [Mass ratio] 21.0 mg/mg Normal [facility] Comment on above: Performed By: #### C NAZIA, BMP #### [facility] [address] [place] [address] Dr. Radha Charlton TSHon 08-09-2022 TSH 0.259 uIU/mL Critically low 0.358-3.74 0 [facility] Comment on above: Performed By: #### C NAZIA, BMP #### [facility] [address] [place] [address] Dr. Radha Charlton TYPE AND SCREENon 08-09-2022 TYPE AND SCREEN Negative Normal [facility] Comment on above: Performed By: #### C NAZIA, BMP #### [facility] [address] [place] [address] Dr. Radha Charlton VIT B12 AND FOLATEon 022 Cobalamin (Vitamin B12) [Mass/Vol] 459.0 pg/mL Normal 193.0-986. 0 [facility] Comment on above: Performed By: #### F T4, FETIBC, B12FOL #### [facility] [address] [place], [place] [address] Dr. Radha Charlton FOLATE 10.20 ng/mL Normal 8.60-58.90 [facility] Comment on above: Performed By: #### F T4, FETIBC, B12FOL #### [facility] [address] [place], [place] [address] Dr. Radha Charlton XR CHEST 1 Von [...] by: BEAN SCHAFFER Date: 2022-08-09 02:20 Normal [facility] Consent for COVID Vaccineon 02-02-2021 SARS-CoV-2 (COVID-19) RNA EMILIA+probe Ql (Unsp spec) [id number]#1.00CD:127 Normal [facility] Coding Summary.on 01-07-2021 Coding Summary. CODING DATE: [address] [facility] STATUS: PAYOR: Praveen APC DESCRIPTION 256 [employer] - Level 1B ($11-$20) ADMIT [...] Schaffer Date Saved: 01/07/2021 09:23 am Normal [facility] Consent for COVID Vaccineon 01-03-2021 SARS-CoV-2 (COVID-19) RNA EMILIA+probe Ql (Unsp spec) [id number]:127 Normal [facility] Consent for Treatmenton 12-17 Consent for Treatment [id number]#[id number]:127 Normal [facility] Cardiovascular Lab Reporton 12-25-2017 Cardiovascular Lab Report [facility] Patient Name: Abi Victoria [facility] MR #: [id number] Physician: Oj Luna M.D.Medicine Service Date: 12/24/2017Division of Birthdate: 6Cardiology Room #: 3AB [id number] [place], [place] [address] Fax Cardiovascular Laboratory ReportINDICATION: Abi Victoria is a 62-year-old lady with history of WPW statuspost surgical ablation in 1989. She has history of atrial flutterdiagnosed about 1 year ago and has been maintained on Eliquis. She wasadmitted yesterday to the [facility] with symptoms of unstableangina and continuous [...] signed informed consent. She was [place] [facility] [place]. The right wrist area was prepped and draped in usual fashion.Using micropuncture technique, the right radial artery was accessed. A6-Tajik x 11 cm Hydrophilic sheath was advanced. Verapamil was giventhrough the sheath and heparin was administered intravenously. James'stest was favorable on the right. Bilateral selective coronary angiographywas then performed using a 6-Tajik Sree radial diagnostic catheter forengagement of the [...] 12/24/2017/02:58 P/Oj Rocha M.D.Date Trans: 12/25/2017 04:21 A/columbaoDN_JN:[id number]: Lacey Marion M.D. [id number] [facility] [place] [facility] [id number] Oj Rocha M.D. Heart Failure/ Transplant Mailstop [phone] [facility] [address] [facility] Discharge Summaryon 12-26-19 Discharge Summary MR#: [id number] [facility]i [facility] Admitted: 12/23/2017 Discharged: 12/24/2017 Date of : 1955 Physician: Blake Membreno M.D. DISCHARGE SUMMARYPRIMARY DIAGNOSIS: Noncardiac chest pain.SECONDARY DIAGNOSES:1. Atrial flutter.2. Hmzrd-Zvyhujhht-Chnkl syndrome status post ablation in the .3. Hypothyroidism.HISTORY OF PRESENT ILLNESS AND HOSPITAL COURSE: The patient is [id number] female with a past medical history as noted above, who [facility] from [facility] after she presented with acuteretrosternal chest [...] documentation from me. Date Dict: 12/24/2017/04:20 P/Annalise Stephenson, MDDate Trans: 12/25/2017 12:19 A/mmClarisaN_[id number]: Lacey Marion M.D. [address] [place] [address] Oj Rocha M.D. Heart Failure/ Transplant Mailstop [address] [facility] [address] [facility] APTTon 12-24-2017 aPTT 72.7 s Critically high 25.0-35.[address] [facility] Comment on above: Order Comment: [...] THE PRESENCEOF HEPARIN. Performed By: #### 3 0410, 48870, 81983 ####[facility] [facility].[address] BASIC METABOLIC PANELon 03-0 Calcium 8.1 mg/dL Low 8.6-10.[address] [facility] Comment on above: Order Comment: No: D o not add to previous draw Performed By: #### 3 9540, 17123, 42758 ####[facility] [place] [address], [facility] Chloride 115 mmol/L High 98-[address] [facility] Comment on above: Order Comment: No: D o not add to previous draw Performed By: #### 3 5200, 77503, 46207 ####[facility] [place] [address], [facility] CO2 25 mmol/L Normal 21-[address] [facility] Comment on above: Order Comment: No: D o not add to previous draw Performed By: #### 3 5200, 75341, 46490 ####[facility] [place] [address], [facility] Creatinine 0.78 mg/dL Normal 0.60-1.[address] [facility] Comment on above: Order Comment: No: D o not add to previous draw Performed By: #### 3 5200, 50926, 37312 ####[facility] [place] [address], [facility] eGFR (black) mL/min/{1.73_m2} Normal >[address] [facility] Comment on above: Order Comment: No: D o not add to previous draw Performed By: #### 3 5200, 21844, 09263 ####[facility] [place] [address], [facility] eGFR (non-black) mL/min/{1.73_m2} Normal >[address] [facility] Comment on above: Order Comment: No: D o not add to previous draw Performed By: #### 3 5200, 99450, 77457 ####[facility] [place] [address], [facility] Glucose mass conc 87 mg/dL Normal 70-[address] [facility] Comment on above: Order Comment: No: D o not add to previous draw Performed By: #### 3 0, 53859, 16760 ####[facility] [place] [address], [place] Potassium molar conc 4.3 mmol/L Normal 3.5-5.[address] [facility] Comment on above: Order Comment: No: D o not add to previous draw Performed By: #### 3 5200, 84268, 69615 ####[facility] [place] [address], [place] Sodium 142 mmol/L Normal 136-[address] [facility] Comment on above: Order Comment: No: D o not add to previous draw Performed By: #### 3 5200, 62017, 73173 ####[facility] Urea nitrogen 19 mg/dL Normal 7-[address] [facility] Comment on above: Order Comment: No: D o not add to previous draw Performed By: #### 3 5200, 22803, 00919 ####[facility] CBC W/DIFFon 12-24-2017 ABS BASOPHILS 0.1 10*3/uL Normal 0.0-0.[address] [facility] Comment on above: Order Comment: No: D o not add to previous draw Performed By: #### 5 0103 ####[address] ABS IMM GRANS 0.0 10*3/uL Normal 0.0-0.[address] [facility] Comment on above: Order Comment: No: D o not add to previous draw Performed By: #### 5 0103 ####[place] [address] Basophils Auto #/vol (Bld) 0.6 % Normal 0.0-1.[address] [facility] Comment on above: Order Comment: No: D o not add to previous draw Performed By: #### 5 0103 ####[address] Eosinophils 0.4 10*3/uL Normal 0.0-0.[address] [facility] Comment on above: Order Comment: No: D o not add to previous draw Performed By: #### 5 0103 ####[address] Eosinophils/100 leukocytes 3.6 % Normal 0.0-6.[address] [facility] Comment on above: Order Comment: No: D o not add to previous draw Performed By: #### 5 0103 ####[facility] Erythrocyte distribution width Auto Ratio (RBC) 13.3 % Normal 11.5-15.[address] [facility] Comment on above: Order Comment: No: D o not add to previous draw Performed By: #### 5 0103 ####[facility] [facility] Erythrocytes (RBC) 0 % Normal 0-[address] [facility] Comment on above: Order Comment: No: D o not add to previous draw Performed By: #### 5 0103 ####[facility] [facility].[address] Erythrocytes (RBC) 3.54 10*6/uL Low 3.80-5.[address] [facility] Comment on above: Order Comment: No: D o not add to previous draw Performed By: #### 5 3 ####[facility] [facility].[address] Hematocrit (HCT) 32.7 % Low 36.0-45.[address] [facility] Comment on above: Order Comment: No: D o not add to previous draw Performed By: #### 5 3 ####[facility] [facility].[address] Hemoglobin mass conc (Bld) 10.4 g/dL Low 12.0-15.[address] [facility] Comment on above: Order Comment: No: D o not add to previous draw Performed By: #### 5 3 ####[facility] [facility] [place] [address], [facility] IMMATURE GRANS 0.3 % Normal 0.0-1.[address] [facility] Comment on above: Order Comment: No: D o not add to previous draw Performed By: #### 5 3 ####[facility] Lymphocytes 2.1 10*3/uL Normal 1.2-4.[address] [facility] Comment on above: Order Comment: No: D o not add to previous draw Performed By: #### 5 0103 ####[facility] [facility] Lymphocytes/100 leukocytes 20.8 % Normal 20.0-45.[address] [facility] Comment on above: Order Comment: No: D o not add to previous draw Performed By: #### 5 0103 ####[facility] [facility].[address] MCH 29.4 pg Normal 27.0-33.[address] [facility] Comment on above: Order Comment: No: D o not add to previous draw Performed By: #### 5 0103 ####[facility] [facility].[address] MCHC mass conc (RBC) 31.8 g/dL Low 32.0-35.[address] [facility] Comment on above: Order Comment: No: D o not add to previous draw Performed By: #### 5 0103 ####[facility] [facility].[address] MCV 92.4 fL Normal 82.0-98.[address] [facility] Comment on above: Order Comment: No: D o not add to previous draw Performed By: #### 5 0103 ####[facility] [facility].[address] Monocytes 0.6 10*3/uL Normal 0.1-1.[address] [facility] Comment on above: Order Comment: No: D o not add to previous draw Performed By: #### 5 0103 ####[facility] [place] [address] MONOS 5.6 % Normal 5.0-12.[address] [facility] Comment on above: Order Comment: No: D o not add to previous draw Performed By: #### 5 0103 ####[facility] [place] [address], [facility] Neutrophils 6.9 10*3/uL Normal 1.6-7.[address] [facility] Comment on above: Order Comment: No: D o not add to previous draw Performed By: #### 5 0103 ####[facility] [place] [address], [facility] Neutrophils/100 leukocytes 69.1 % Normal 40.0-72.[address] [facility] Comment on above: Order Comment: No: D o not add to previous draw Performed By: #### 5 0103 ####[facility] [facility] [place] [address], [facility] PLAT CNT 228 10*3/uL Normal 150-[address] [facility] Comment on above: Order Comment: No: D o not add to previous draw Performed By: #### 5 0103 ####[facility] WBC (Leukocytes) 10.0 10*3/uL Normal 4.0-10.[address] [facility] Comment on above: Order Comment: No: D o not add to previous draw Performed By: #### 5 0103 ####[facility] LIVER BATTERYon 12-24-2017 Alanine aminotransferase (ALT) 27 U/L Normal 7-[address] [facility] Comment on above: Order Comment: No: D o not add to previous draw Performed By: #### 3 5200, 18908, 60657 ####[facility] Albumin 2.9 g/dL Low 3.5-5.[address] [facility] Comment on above: Order Comment: No: D o not add to previous draw Performed By: #### 3 5200, 75758, 90167 ####[facility] [place] [address], [facility] ALKALINE PHOSPH 41 IU/L Normal 34-[address] [facility] Comment on above: Order Comment: No: D o not add to previous draw Performed By: #### 3 5200, 19448, 93757 ####[facility] [place] [address], [facility] Aspartate aminotransferase (AST) 15 U/L Normal 13-[address] [facility] Comment on above: Order Comment: No: D o not add to previous draw Performed By: #### 3 5200, 07597, 65732 ####[facility] [place] [address], [facility] Bilirubin (direct) 0.1 mg/dL Normal 0.0-0.[address] [facility] Comment on above: Order Comment: No: D o not add to previous draw Performed By: #### 3 5200, 88210, 18159 ####[facility] [place] [address], [facility] Bilirubin (total) 0.4 mg/dL Normal 0.3-1.[address] [facility] Comment on above: Order Comment: No: D o not add to previous draw Performed By: #### 3 5200, 14589, 80614 ####[facility] [place] [address], [facility] Protein 4.8 g/dL Low 6.0-8.[address] [facility] Comment on above: Order Comment: No: D o not add to previous draw Performed By: #### 3 5200, 44888, 67405 ####[facility] [place] [address], [facility] MAGNESIUM BLOODon 12-24-2017 Magnesium 1.9 mg/dL Normal 1.9-2.[address] [facility] Comment on above: Order Comment: No: D o not add to previous draw Performed By: #### 3 5200, 05603, 61247 ####[facility] [facility].[address] PROTHROMBIN TIMEon 8 INR Coag RelTime (PPP) 1.03 {INR} Normal 0.91-1.[address] [facility] Comment on above: Order Comment: [...] OF ACTION, CLINICALEFFECTIVENESS, AND OPTIMAL THERAPEUTIC RANGE. [id number]. Performed By: #### 3 9220, 73262, 18240 ####[facility] [facility].[address] Prothrombin time (PT) Coag time (PPP) 13.5 s Normal 12.3-14.[address] [facility] Comment on above: Order Comment: No: D o not add to previous draw Result Comment: ALL RESULTS MUST BE INTERPRETED WITH RESPECT TO BLOOD DRAWING ARTIFACTOR DILUTION ERROR OF ANTICOAGULANT AT THE TIME OF SAMPLING. Performed By: #### 3 0770, 68899, 19804 ####[facility] [facility].[address] TROPONIN-Ion 12-24-2017 Troponin I.cardiac mass conc 0.00 ng/mL Normal 0.00-0.[address] [facility] Comment on above: Order Comment: No: D o not add to previous draw Result Comment: REFE RENCE RANGES: 0.00 - 0.14 ng/ml NEGATIVE 0.15 - 0.25 ng/ml INDETERMINATE > 0.25 ng/ml INDICATIVE OF AN M.I. Performed By: #### 3 5200 ####[facility] [facility].[address] TSHon 12-24-2017 Thyroid stimulating hormone (TSH) 0.57 MICRO-IU/ML Normal 0.34-5.[address] [facility] Comment on above: Order Comment: No: D o not add to previous draw Performed By: #### 3 5200, 87827, 35992 ####[facility] [facility].[address] UFH HEPARIN ASSAYon 12-25-19 18 UNFRACTIONATED HEPARIN 0.43 IU/mL Normal 0.30-0.[address] [facility] Comment on above: Result Comment: Do roxaban and Apixaban will interfere with the anti Xa assay used tomonitor UFH and LMWH. Performed By: #### 3 0477, 22982, 63503 ####[facility] [facility].[address] UNFRACTIONATED HEPARIN 0.56 IU/mL Normal 0.30-0.[address] [facility] Comment on above: Result Comment: Troutman roxaban and Apixaban will interfere with the anti Xa assay used tomonitor UFH and LMWH. Performed By: #### 3 0477 ####[facility] [facility].[address] BASIC METABOLIC PANELon - Calcium 8.0 mg/dL Low 8.6-10.[address] [facility] Comment on above: Order Comment: No: D o not add to previous draw Performed By: #### 3 5200, 00268, 85235 ####[facility] [place] [address], [facility] Chloride 117 mmol/L High 98-[address] [facility] Comment on above: Order Comment: No: D o not add to previous draw Performed By: #### 3 5200, 87639, 07745 ####[facility] [place] [address], [facility] CO2 27 mmol/L Normal 21-[address] [facility] Comment on above: Order Comment: No: D o not add to previous draw Performed By: #### 3 5200, 03598, 66160 ####[facility] [facility] [place] [address], [facility] Creatinine 0.78 mg/dL Normal 0.60-1.[address] [facility] Comment on above: Order Comment: No: D o not add to previous draw Performed By: #### 3 5200, 99906, 81338 ####[facility] [facility] [address], [facility] eGFR (black) mL/min/{1.73_m2} Normal >[address] [facility] Comment on above: Order Comment: No: D o not add to previous draw Performed By: #### 3 0, 98172, 23391 ####[facility] [facility] [place] [address], [facility] eGFR (non-black) mL/min/{1.73_m2} Normal >[address] [facility] Comment on above: Order Comment: No: D o not add to previous draw Performed By: #### 3 5200, 12703, 97607 ####[facility] [facility] [place] [address], [facility] Glucose mass conc 93 mg/dL Normal 70-[address] [facility] Comment on above: Order Comment: No: D o not add to previous draw Performed By: #### 3 5200, 30332, 68558 ####[facility] Potassium molar conc 4.2 mmol/L Normal 3.5-5.[address] [facility] Comment on above: Order Comment: No: D o not add to previous draw Performed By: #### 3 5200, 62124, 94669 ####[facility] Sodium 144 mmol/L Normal 136-[address] [facility] Comment on above: Order Comment: No: D o not add to previous draw Performed By: #### 3 5200, 08352, 01836 ####[facility] Urea nitrogen 15 mg/dL Normal 7-[address] [facility] Comment on above: Order Comment: No: D o not add to previous draw Performed By: #### 3 5200, 98102, 55505 ####[facility] CBC COMPLETE BLOOD COUNTon 0 - Erythrocyte distribution width Auto Ratio (RBC) 13.4 % Normal 11.5-15.[address] [facility] Comment on above: Order Comment: No: D o not add to previous draw Performed By: #### 5 0608 ####[facility] Erythrocytes (RBC) 3.58 10*6/uL Low 3.80-5.[address] [facility] Comment on above: Order Comment: No: D o not add to previous draw Performed By: #### 5 0608 ####[facility] Erythrocytes (RBC) 0 % Normal 0-[address] [facility] Comment on above: Order Comment: No: D o not add to previous draw Performed By: #### 5 0608 ####[facility] Hematocrit (HCT) 33.6 % Low 36.0-45.[address] [facility] Comment on above: Order Comment: No: D o not add to previous draw Performed By: #### 5 0608 ####[facility] Hemoglobin mass conc (Bld) 10.4 g/dL Low 12.0-15.[address] [facility] Comment on above: Order Comment: No: D o not add to previous draw Performed By: #### 5 0608 ####[address] MCH 29.1 pg Normal 27.0-33.[address] [facility] Comment on above: Order Comment: No: D o not add to previous draw Performed By: #### 5 0608 ####[address] MCHC mass conc (RBC) 31.0 g/dL Low 32.0-35.[address] [facility] Comment on above: Order Comment: No: D o not add to previous draw Performed By: #### 5 0608 ####[address] MCV 93.9 fL Normal 82.0-98.[address] [facility] Comment on above: Order Comment: No: D o not add to previous draw Performed By: #### 5 0608 ####[address] PLAT CNT 249 10*3/uL Normal 150-[address] [facility] Comment on above: Order Comment: No: D o not add to previous draw Performed By: #### 5 0608 ####[address] WBC (Leukocytes) 5.9 10*3/uL Normal 4.0-10.[address] [facility] Comment on above: Order Comment: No: D o not add to previous draw Performed By: #### 5 0608 ####[facility] CPK-MB PROFILEon 12-23-2017 CKMB 3.6 ng/mL Normal 0.0-5.[address] [facility] Comment on above: Order Comment: No: D o not add to previous draw Result Comment: IF T OTAL CK <200 U/L AND: 1. CKMB IS 5-10 NG/ML----BORDERLINE 2. CKMB IS >10 NG/ML----INDICATIVE OF ME OR IF TOTAL CK >200 U/L AND CKMB INDEX >1.9----INDICATIVE OF ME Performed By: #### 3 5200, 74053, 00609 ####[facility] CKMB 4.9 ng/mL Critically high 0.0-1.[address] [facility] Comment on above: Order Comment: No: D o not add to previous draw Performed By: #### 3 5200, 69622, 47700 ####[facility] Creatine kinase (CK) 73 U/L Normal 30-[address] [facility] Comment on above: Order Comment: No: D o not add to previous draw Performed By: #### 3 5200, 92932, 34272 ####[facility] [place] [address], [facility] TROPONIN-Ion 12-23-2017 Troponin I.cardiac mass conc 0.00 ng/mL Normal 0.00-0.[address] [facility] Comment on above: Order Comment: No: D o not add to previous draw Result Comment: REFE RENCE RANGES: 0.00 - 0.14 ng/ml NEGATIVE 0.15 - 0.25 ng/ml INDETERMINATE > 0.25 ng/ml INDICATIVE OF AN M.I. Performed By: #### 3 5200 ####[facility] [facility].[address] Troponin I.cardiac mass conc 0.00 ng/mL Normal 0.00-0.[address] [facility] Comment on above: Order Comment: No: D o not add to previous draw Result Comment: REFE RENCE RANGES: 0.00 - 0.14 ng/ml NEGATIVE 0.15 - 0.25 ng/ml INDETERMINATE > 0.25 ng/ml INDICATIVE OF AN M.I. Performed By: #### 3 5200, 65154, 26010 ####[facility] [facility].[address] UFH HEPARIN ASSAYon 12-24-19 18 UNFRACTIONATED HEPARIN 0.52 IU/mL Normal 0.30-0.[address] [facility] Comment on above: Result Comment: Do roxaban and Apixaban will interfere with the anti Xa assay used tomonitor UFH and LMWH. Performed By: #### 3 0477 ####[facility] [facility].[address] Vital Signs Date Time Vital Sign Value Performing Clinician Crystal moore 10-26-2024 10:30-0500 Body height 165.1 cm Sheryl Plascencia MD Work Phone: [facility] 10-26-2024 10:30-0500 Body mass index (BMI) [Ratio] 24.89 kg/m2 Sheryl Plascencia MD Work Phone: [facility] 10-26-2024 10:30-0500 Body weight 67.86 kg Sheryl Plascencia MD Work Phone: [facility] 10-26-2024 10:30-0500 Diastolic blood pressure 82 mm[Hg] Sheryl Plascencia MD Work Phone: [facility] 10-26-2024 10:30-0500 Heart rate 63 /min Sheryl Plascencia MD Work Phone: [facility] 10-26-2024 10:30-0500 SaO2% (BldA) [Mass fraction] 93 % Sheryl Plascencia MD Work Phone: [facility] 10-26-2024 10:30-0500 Systolic blood pressure 104 mm[Hg] Sheryl Plascencia MD Work Phone: [facility] 07-22-2024 12:00-0400 Body height 165.1 cm [facility] [employer] SAL[employer] CONSULTANT[employer] Work Phone: [facility] 07-22-2024 12:00-0400 Body mass index (BMI) [Ratio] 23.6 kg/m2 [facility] [employer] SAL[employer]SULTANT[employer] Work Phone: [facility] 07-22-2024 12:00-0400 Body weight 64.32 kg [facility] [employer] SALES CONSULTANT-POWER SYSTEM ENGINEER Work Phone: [facility] 07-22-2024 12:00-0400 Diastolic blood pressure 76 mm[Hg] [facility] [employer] SALES CONSULTANT[employer] Work Phone: [facility] 07-22-2024 12:00-0400 Heart rate 113 /min [facility] [employer] SAL[employer] CONS[employer]ANT[employer] Work Phone: [facility] 07-22-2024 12:00-0400 Systolic blood pressure 114 mm[Hg] [facility] [employer] SALES CONSULTANT[employer]n Work Phone: [facility] Encounters Encounter Date Encounter Type Care Provider Facility Start: 10-28-2024 End: 10-28-2024 Telephone encounter Angela Austin LPN [facility] Comment on above: EP Surgery (PT Educa tion) EP Surgery (Med Load ing) Start: 10-26-2024 End: 10-26-2024 Office outpatient visit 25 minutes Sheryl Plascencia MD Work Phone: [facility] Comment on above: Paroxysmal atrial fi brillation (CMS-HCC) (Primary Dx) Start: 10-26-2024 End: 10-26-2024 ambulatory SHERYL PLASCENCIA [facility] Start: 10-25-2024 End: 10-25-2024 Telephone encounter Ijeoma Kendall [facility] Start: 08-08-2024 End: 08-08-2024 Telephone encounter Nia Miranda RN [facility] Comment on above: Biotel strip Start: 07-22-2024 End: 08-29-2024 ambulatory ADRYAN LONG [facility] Start: 07-22-2024 End: 07-22-2024 Office outpatient visit 25 minutes Adryan Long [employer] SALES CONSULTANT-POWER SYSTEM ENGINEER Work Phone: [facility] Comment on above: Paroxysmal atrial fi brillation (CMS-HCC) (Primary Dx); Atrial flutter (CMS-HCC); Status post placement of implantable loop recorder Start: 07-22-2024 End: 07-22-2024 ambulatory ADRYAN LONG [facility] Start: 11-21-2022 End: 11-22-[address] LACEY MARION Facility:[facility] Start: 08-09-2022 End: 08-10-[address] LACEY MARION Facility: Start: 12-23-2017 End: 12-24-2017 Ambulatory BLAKE MEMBRENO Facility:[facility] Procedures Date Procedure Procedure Detail Performing Clinician Start: 10-26-2024 Ecg routine ecg w/le ast 12 lds w/i&r Sheryl Plascencia MD Work Phone: Start: 10-26-2024 Follow-up visit Follow-up SHERYL PLASCENCIA Start: 07-22-2024 Ecg routine ecg w/le ast 12 lds w/i&r Adryan Long [employer] SALES CONSULTANT-POWER SYSTEM ENGINEER Work Phone: Start: 07-22-2024 Follow-up visit Follow-up ADRYAN LONG Start: 07-01-2019 Colonoscopy Adryan benson [employer] SALES CONSULTANT-POWER SYSTEM ENGINEER Work Phone: Start: 12-24-2017 FLUOROSCOPY OF MULTI PLE CORONARY ARTERIES USING OTH CONTRAST OJ ROCHA Plan of Treatment Date Care Activity Detail Author Start: 07-01-2029 Screening for malign ant neoplasm of colon Colonoscopy [facility] Start: 10-26-2025 Adult BMI Screening Adult BMI Screen ing [facility] Start: 10-26-2025 Tobacco Screening Tobacco Screening [facility] Start: 07-22-2025 Adult BMI Screening Adult BMI Screen ing [facility] Start: 07-22-2025 Tobacco Screening Tobacco Screening [facility] Start: 11-21-2024 End: 10-28-2025 Basic metabolic 2000 panel - Serum or Plasma Basic Metabolic Panel Lab Routine Paroxysmal atrial fibrillation ([facility]) Atrial flutter ([facility]) Expected: 11/21/2024, Expires: 10/28/2025 [facility] Work Phone: Comment on above: Expected: 11/21/2024 , Expires: 10/28/2025 Start: 11-21-2024 End: 10-28-2025 CBC W Auto Differential panel - Blood CBC auto differential Lab Routine Paroxysmal atrial fibrillation (CMS-HCC) Atrial flutter ([facility]) Expected: 11/21/2024, Expires: 10/28/2025 [facility] above: Expected: 11/21/2024 , Expires: 10/28/2025 Start: 11-21-2024 End: 10-28-2025 Magnesium [Mass/volume] in Serum or Plasma Magnesium Lab Routine Paroxysmal atrial fibrillation ([facility]) Atrial flutter ([facility]) Expected: 11/21/2024, Expires: 10/28/2025 [facility] Comment on above: Expected: 11/21/2024 , Expires: 10/28/2025 Start: 10-26-2024 End: 10-26-2024 Patient encounter procedure 10/26/2024 10:30 AM EST Office Visit [facility] [address] [place] [address] Sheryl Plascencia MD [address] [place] [address] [facility] Start: 07-22-2024 End: 07-22-2025 Wireless Telemetry (In Office) [facility] Work Phone: Comment on above: Expected: 07/22/2024 , Expires: 07/22/2025 Start: 2021 Fall Risk Screening Fall Risk Screen ing [facility] Start: 1975 DTaP,Tdap and Td Vaccines (1 - Tdap) DTaP,Tdap and Td Vaccines (1 - Tdap) [facility] Start: 1968 Depression Screening Depression Scre neal [facility] Start: 1955 Medicare Annual Wellness Visit Medicare Annual Wellness Visit [facility] Immunizations Immunization Date Immunization Notes Care Provider Fa lia 09-24-2018 pneumococcal polysaccharide vaccine, 23 valent Adryan Long [employer] SALES CONSULTANT-POWER SYSTEM ENGINEER Work Phone: [facility] Payers Date Payer Category Payer Medicare HMO ANTHEM MEDICARE [id number] 2023 Medicare [id number] 2021 Unknown [id number] 1959 Unknown [id number] 1955 Unknown [id number] 1955 Unknown [id number] 1956 Unknown [id number] 1956 Unknown [id number] 1956 Unknown [id number] [employer] [facility] [id number] Medicare [employer] [place] MEDICARE [employer]ED [employer] MEDICARE ADVANTAGE [id number] Effective for all dates [phone] [address] [place] [address] [id number] Social History Date Type Detail Facility Start: 07-22-2024 Tobacco smoking status NHIS Ex-smoker [facility] Start: 09-16-1972 History of tobacco use Current smoker [facility] Start: 09-16-1972 History of tobacco use Cigarette Smoker [facility] Start: 07-22-2024 Tobacco use and exposure Smokeless tobacco non-user [facility] Start: 07-22-2024 End: 10-26-2024 Alcoholic beverage intake Current drinker of alcohol (finding) [facility] Start: 09-08-2018 End: 11-29-2020 History of Social function [facility] Start: 09-08-2018 End: 11-29-2020 Alcohol Use Disorder Identification Test - Consumption [AUDIT-C] [facility] Frequency of Alcohol Consumption Never [facility] Start: 07-04-2023 Tobacco Comment maybe 3 cigarettes a day as of 06/23/2019 [facility] Start: 06-23-2019 Alcohol Comment socially [facility] Start: 1955 Sex assigned at Not on file [facility] Start: 05-24-2015 Sex Female (finding) [facility] Medical Equipment Procedure Code Equipment Code Equipment Origin al Text Equipment Identifier Dates Sys Crd Rvl Linq Rpl [id number] - [id number] - [id number] Start: 09-16-2018 Clinical Notes 11-21-2022 to 10-28-2024 Telephone Encounter - Angela Austin LPN - 10/28/2024 7:57 AM ESTTelephone Encounter - Angela Austin [employer] ARCHITECT - 10/28/2024 7:57 AM ESTTelephone Encounter - Angela Austin [employer]OU[employer] SOLUTIONS ARCHITECT - 10/28/2024 7:50 AM EST Note Date & Type Note Facility 10-28-2024 Miscellaneous Notes Images from the original note were not included. [facility]: Admission for dofetilide/Tikosyn Loading Physician: Dr. Sheryl Plascencia Date of Admission: 11/28 You will be called by [facility] the day of your admission for what time to arrive and which entrance Hospital address: [facility] [address] [facility] [place] [address] Other instructions before your admission: STOP FLECAINIDE 11/25 Complete lab work on or after 2 IF YOU TAKE A BLOOD THINNER: DO NOT MISS ANY DOSES. Please call our office if you miss a dose of your blood thinner before your admission! [facility] EP Medication Loading Instructions Your physician has ordered a new medication for you which will help to regulate your heart's electricity. Since the medication will affect your heart rhythm, blood pressure and pulse rate, it is important that the medication works in the way your physician intended and does not cause any unwanted effects. To start your medication safely, you will need to be in the hospital for a few days (usually three) while we start your new medication. This is called medication loading. In the hospital, you will be given doses of the new medication while you are on a portable heart monitor, and your ECG (electrocardiogram) will be monitored continuously. You will have an IV catheter placed during this admission, so you may receive IV medications, if needed, during the medication loading. You may eat and drink normally unless your physician or nurses tell you otherwise. If the medication works in the way your physician wanted it to, you will be sent home on the new medication. If the medication does not work or causes unwanted effects, your physician will determine the next steps in your care. For certain patients, this may also include having a procedure (a cardioversion) at the end or the beginning of the medication loading. Someone may need to drive you home, so we suggest you are dropped off for the admission and picked up when you are finished. Note that if you receive any sedation on the day of discharge, you MAY NOT use a driving service (Taxi, Uber, Lyft, etc) and must be driven home by a family member or friend. Preparing for Your Admission You will be given the date, but not the time, for your admission. [facility] Access admission department will call you sometime during the day of your admission as soon as your room is ready. You will be given your room number and told which entrance you will register at. 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 If you do not receive a call by the following morning, please contact [facility] [phone] or our office at [phone] and choose option 7 for the EP nurses. Please follow these instructions provided to you by the Surgery nurses. The [facility] instructions can be incorrect and provide the wrong information about your admission. If you are unsure or need clarification, please call the Surgery office [phone]. You may eat or drink normally and take your medications as usual on the day of admission unless you have been instructed otherwise. Wear your usual clothing. You will be wearing a telemetry ECG monitor during the admission and will need to change into a hospital gown. Pajama bottoms, shorts or underwear are acceptable to wear for your comfort. You may also bring a bathrobe, slippers, and other needed overnight supplies, but do not bring anything valuable. Bring your CPAP/BiPAP Machine with supplies if you use one. Bring all your medications that you usually take, in their original prescription bottles. The hospital cannot accept medications in pill boxes or other containers. You will need to contact your insurance company or pharmacy to make sure that your insurance covers the new medication. Dofetilide is the generic name and Tikosyn is the brand name. You can also ask you insurance if generic is covered or more affordable. Tikosyn Loading Patient Information Once you have completed medication loading for Tikosyn, it is important that you take the exact dosage as prescribed by your physician. Avoid missed doses and report any new or unusual symptoms (fast or slow heart rates, feeling faint or dizzy, passing out or nearly passing out). Never increase or decrease your Tikosyn dose unless directed by your physician. Always keep an updated medication list (including over the counter medications and supplements) with you and bring that list to every health care appointment. While taking Tikosyn, it is important that all your physicians, health care providers and pharmacists are aware that you are taking this medication. When starting Tikosyn, your doctor will review all your medications before you start taking Tikosyn to ensure it is safe for you. If any of your healthcare providers start you on any new medications after you begin taking Tikosyn, please make sure they do not interact with Tikosyn. Below, is a list of some medications that could interact with Tikosyn. If you are unsure about any of your medications, please call our office at [phone]. Cimetidine alone (Tagamet, Tagamet HB, over the counter or prescription) or in the combination medication Guanendrux Verapamil (Calan, Calan SR, Covera-HS, Isoptin, Isoptin SR, Verelan, Verelan PM) or in the combination medication Tarka Ketoconazole (Nizoral, Xolegel, Extina) Trimethoprim alone (Proloprim, Trimpex) or in a combination medication (Abactrim, Bactrim, Septra, Sulfatrim, Cotrimoxazole) Prochlorperazine (Compazine, [place]) Megestrol (Megace) Dolutegravir (Tivicay), or in the combination drug Dovato Hydrochlorothiazide (HCTZ) alone or in a combination medication (Esidrix, Ezide, Hydrodiuril, [place]-Par, Microzide or Ortic) Cisapride (Propulsid). Itraconazole (Sporanox). Ziprasidone (Geodon). Amitriptyline (Elavil) or other tricyclic antidepressants. Promethazine (Phenergan). Prochlorperazine (Compazine). Quinidine (Quinaglute, Quinidex Extentabs, others). Disopyramide (Norpace). Sotalol (Betapace). Check with your pharmacist for others Do not share this medication with other people, as it may harm them. If any provider mentions that you have new or worsening kidney or liver impairment, let us know right away. Notify us if you become , plan to become or are nursing. Contact us any time you have questions at [phone] or and choose the option for the nurses. documented in this encounter [facility] 10-28-2024 Telephone encounter Note Images from the original note were not included. [facility]: Admission for dofetilide/Tikosyn Loading Physician: Dr. Sheryl Plascencia Date of Admission: 11/28 You will be called by [facility] the day of your admission for what time to arrive and which entrance Hospital address: [facility] [address] [facility] [place] [address] Other instructions before your admission: STOP FLECAINIDE / Complete lab work on or after 2/3 IF YOU TAKE A BLOOD THINNER: DO NOT MISS ANY DOSES. Please call our office if you miss a dose of your blood thinner before your admission! [facility] EP Medication Loading Instructions Your physician has ordered a new medication for you which will help to regulate your heart's electricity. Since the medication will affect your heart rhythm, blood pressure and pulse rate, it is important that the medication works in the way your physician intended and does not cause any unwanted effects. To start your medication safely, you will need to be in the hospital for a few days (usually three) while we start your new medication. This is called medication loading. In the hospital, you will be given doses of the new medication while you are on a portable heart monitor, and your ECG (electrocardiogram) will be monitored continuously. You will have an IV catheter placed during this admission, so you may receive IV medications, if needed, during the medication loading. You may eat and drink normally unless your physician or nurses tell you otherwise. If the medication works in the way your physician wanted it to, you will be sent home on the new medication. If the medication does not work or causes unwanted effects, your physician will determine the next steps in your care. For certain patients, this may also include having a procedure (a cardioversion) at the end or the beginning of the medication loading. Someone may need to drive you home, so we suggest you are dropped off for the admission and picked up when you are finished. Note that if you receive any sedation on the day of discharge, you MAY NOT use a driving service (Taxi, Uber, Lyft, etc) and must be driven home by a family member or friend. Preparing for Your Admission You will be given the date, but not the time, for your admission. [facility] Access admission department will call you sometime during the day of your admission as soon as your room is ready. You will be given your room number and told which entrance you will register at. 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 If you do not receive a call by the following morning, please contact [facility] [phone] or our office at [phone] and choose option 7 for the EP nurses. Please follow these instructions provided to you by the Surgery nurses. The [facility] instructions can be incorrect and provide the wrong information about your admission. If you are unsure or need clarification, please call the Surgery office [phone]. You may eat or drink normally and take your medications as usual on the day of admission unless you have been instructed otherwise. Wear your usual clothing. You will be wearing a telemetry ECG monitor during the admission and will need to change into a hospital gown. Pajama bottoms, shorts or underwear are acceptable to wear for your comfort. You may also bring a bathrobe, slippers, and other needed overnight supplies, but do not bring anything valuable. Bring your CPAP/BiPAP Machine with supplies if you use one. Bring all your medications that you usually take, in their original prescription bottles. The hospital cannot accept medications in pill boxes or other containers. You will need to contact your insurance company or pharmacy to make sure that your insurance covers the new medication. Dofetilide is the generic name and Tikosyn is the brand name. You can also ask you insurance if generic is covered or more affordable. Tikosyn Loading Patient Information Once you have completed medication loading for Tikosyn, it is important that you take the exact dosage as prescribed by your physician. Avoid missed doses and report any new or unusual symptoms (fast or slow heart rates, feeling faint or dizzy, passing out or nearly passing out). Never increase or decrease your Tikosyn dose unless directed by your physician. Always keep an updated medication list (including over the counter medications and supplements) with you and bring that list to every health care appointment. While taking Tikosyn, it is important that all your physicians, health care providers and pharmacists are aware that you are taking this medication. When starting Tikosyn, your doctor will review all your medications before you start taking Tikosyn to ensure it is safe for you. If any of your healthcare providers start you on any new medications after you begin taking Tikosyn, please make sure they do not interact with Tikosyn. Below, is a list of some medications that could interact with Tikosyn. If you are unsure about any of your medications, please call our office at [phone]. Cimetidine alone (Tagamet, Tagamet HB, over the counter or prescription) or in the combination medication Guanendrux Verapamil (Calan, Calan SR, Covera-HS, Isoptin, Isoptin SR, Verelan, Verelan PM) or in the combination medication Tarka Ketoconazole (Nizoral, Xolegel, Extina) Trimethoprim alone (Proloprim, Trimpex) or in a combination medication (Abactrim, Bactrim, Septra, Sulfatrim, Cotrimoxazole) Prochlorperazine (Compazine, [place]) Megestrol (Megace) Dolutegravir (Tivicay), or in the combination drug Dovato Hydrochlorothiazide (HCTZ) alone or in a combination medication (Esidrix, Ezide, Hydrodiuril, [place]-Par, Microzide or Ortic) Cisapride (Propulsid). Itraconazole (Sporanox). Ziprasidone (Geodon). Amitriptyline (Elavil) or other tricyclic antidepressants. Promethazine (Phenergan). Prochlorperazine (Compazine). Quinidine (Quinaglute, Quinidex Extentabs, others). Disopyramide (Norpace). Sotalol (Betapace). Check with your pharmacist for others Do not share this medication with other people, as it may harm them. If any provider mentions that you have new or worsening kidney or liver impairment, let us know right away. Notify us if you become , plan to become or are nursing. Contact us any time you have questions at [phone] or and choose the option for the nurses. [facility] 10-28-2024 Miscellaneous Notes Received orders for medication loading, pt is agreeable to 11/28. Pt education to be sent to home address. documented in this encounter [facility] 10-28-2024 Telephone encounter Note Received orders for medication loading, pt is agreeable to 11/28. Pt education to be sent to home address. [facility] 10-26-2024 History of Present illness Narrative Abi Victoria Date of visit: 10/26/2024 Date of : 1955 Age: 69 y.o. Patient Active Problem List Diagnosis Paroxysmal atrial fibrillation (CMS-HCC) Atrial flutter ([facility]) Tricuspid valve regurgitation Mitral valve regurgitation Pleural effusion Multiple closed fractures of cervical vertebrae (CMS-HCC) Status post placement of implantable loop recorder Iron deficiency anemia due to chronic blood loss Occult blood positive stool Antral gastritis Diverticulosis large intestine w/o perforation or abscess w/o bleeding Cardiomyopathy (CMS-HCC) Other fatigue No Known Allergies Current Outpatient Medications Medication Sig Dispense Refill flecainide (TAMBOCOR) 100 mg tablet Take 1 tablet (100 mg total) by mouth in the morning and 1 tablet (100 mg total) before bedtime. 60 tablet 6 furosemide (LASIX) 20 mg tablet Take 1 tablet (20 mg total) by mouth daily as needed (lower extremity swelling). 90 tablet 3 levothyroxine (SYNTHROID, LEVOTHROID) 125 MCG tablet Take 1 tablet (125 mcg total) by mouth in the morning. liothyronine (CYTOMEL) 5 MCG tablet Take 2 tablets (10 mcg total) by mouth in the morning. metoprolol succinate XL (TOPROL XL) 50 mg 24 hr tablet Take 1 tablet (50 mg total) by mouth in the morning. 90 tablet 3 pantoprazole (PROTONIX) 40 mg EC tablet Take 1 tablet (40 mg total) by mouth in the morning. rivaroxaban (XARELTO) 15 mg tablet Take 1 tablet (15 mg total) by mouth in the morning. TAKE 1 TABLET (15 MG TOTAL) BY MOUTH IN THE MORNING. 30 tablet 6 sulfamethoxazole-trimethoprim (BACTRIM DS) 800-160 mg per tablet Take 1 tablet by mouth in the morning and 1 tablet before bedtime. No current facility-administered medications for this visit. Chief Complaint Patient presents with Follow-up 3month f/u-ls SER-14 day EM-sched with pt History of Present Illness Ms. 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 She is currently on flecainide 100 mg BID and Toprol 50 mg qday. She was seen in EP [facility] clinic 07/22/24 and reported increasing burden of arrhythmias for which EKG in clinic showed atypical AFL w/ RVR 113 BPM. 2 week MCOT 07/2024 showed a 41% burden of atypical AFL for which her flecainide was increased to 100 mg BID. Patient presented the appointment by herself today. EKG in clinic shows atypical atrial flutter versus atrial tachycardia with a cycle length of 400 milliseconds, two-to-one AV conduction, heart rate of 76 beats per minute. She continues to report symptoms of her atrial arrhythmia, she sometimes has tachycardic heart rates, sudden associated lightheadedness and palpitations. Her most recent lab work did demonstrate a creatinine of 1.48, with a creatinine clearance of 39. Past Medical History: Diagnosis Date A-fib (CMS-HCC) [...] 09/16/2018 Performed by Danilo Campuzano DO at [facility] (EP) ANGIOGRAPHY 12/24/2017 Coronary; Dr. Rocha Atrial tachycardia x 2. CTI redo - SHAYY MARAVILLA ILR In situ N/A 03/28/2021 Performed by Sheyrl Plascencia MD at [facility] (EP) CARDIOVERSION 02/26/2018 Dr. Membreno SECTION 1978 SECTION 1982 COLONOSCOPY N/A 07/01/2019 Performed by Harish Castro MD at [facility] EGD N/A 07/01/2019 Performed by Harish Castro MD at [facility] HYSTERECTOMY Loop recorder implant Left 09/16/2018 Performed by Danilo Campuzano DO at [facility] (EP) MAZE PROCEDURE via open heart surgery MYRINGOTOMY [...] Vaping Use Vaping status: Every Day Substances: Nicotine, Flavoring Devices: Disposable Substance and Sexual Activity Alcohol use: Yes Comment: socially Drug use: No Sexual activity: Defer Comment: not reviwed at this visit Other Topics Concern Caffeine Use Yes Social History Narrative Not on file Social Drivers of Health Financial Resource Strain: Not on file Food Insecurity: No Food Insecurity (10/26/2024) Hunger Screening Food Insecurity - Worry: Never True Food Insecurity - Inability: Never True Transportation Needs: Not on file Physical Activity: Not on file Stress: Not on file Social Connections: Not on file Interpersonal Safety: Not on file Housing Instability: Not on file Review of Systems Review of Systems Constitutional: Positive for malaise/fatigue. HENT: Negative. Eyes: Negative. Cardiovascular: Negative. Respiratory: Positive for shortness of breath. Endocrine: Negative. Hematologic/Lymphatic: Negative. Skin: Negative. Musculoskeletal: Negative. Gastrointestinal: Negative. Genitourinary: Negative. Neurological: Positive for dizziness and numbness. Psychiatric/Behavioral: Negative. Allergic/Immunologic: Negative. Vascular: Negative. CARDIOVASCULAR: Please review HPI. Physical Examination General [...] bilaterally, no use of accessory muscles. Cardiovascular: Rhythm with normal S1 and S2 with no murmurs. Gastrointestinal: Soft, non-tender. Bowel sounds normal. Musculoskeletal: No peripheral edema. Neurologic: Oriented to time, person and place, affect appropriate. No focal/major motor defects noted. Psychiatric: Appropriate mood, memory and judgement. VITAL SIGNS: BP 104/82 (BP Site: Left Arm, BP Postition: Sitting) Pulse 63 Ht 165.1 cm (5' 5 ) Wt 67.9 kg (149 lb 9.6 oz) SpO2 93% BMI 24.89 kg/m Orders Placed or Reconciled This Encounter Medications liothyronine (CYTOMEL) 5 MCG tablet Sig: Take 2 tablets (10 mcg total) by mouth in the morning. sulfamethoxazole-trimethoprim (BACTRIM DS) 800-160 mg per tablet Sig: Take 1 tablet by mouth in the morning and 1 tablet before bedtime. There are no discontinued medications. [id number] Score: 2 2.2% Stroke risk per year, 2.9% risk of stroke/TIA/systemic embolism IMPRESSIONS/PLAN 1. Paroxysmal atrial fibrillation ([facility]) - POCT EKG Atrial tachycardia/atypical atrial flutter: CHADS2 Vasc 3 on Xarelto 15 mg, decreased dosing due to creatinine. She is currently on flecainide 100 mg b.i.d. and Toprol 50 mg q.day, rate controlled but symptomatic either from her rhythm or from a medications with blood pressures that are borderline. Prior AT ablation in 2017, as well as redo AT/RF CTI ablation 2020. She now presents with recurrent arrhythmia that is symptomatic with a history of nonischemic cardiomyopathy due to tachycardia. Options are for redo AT/atypical atrial flutter ablation or tikosyn. At the time of her previous ablation, it was noted that she had a region of surgical scar likely related to her prior surgical WPW ablation in the past. Given multiple attempts at addressing this rhythm from ablation in the past has not worked, I recommended proceeding with Tikosyn loading. She does have elevated creatinine of 1.5, and thus initial dose of Tikosyn will be 250 mg BID. She should hold her flecainide 3 days prior to admission. No other medication changes. RV after dofetilide loading. TODAYS ORDERS Orders Placed This Encounter Procedures POCT EKG FOLLOW UP No follow-ups on file. PCP: LACEY MARION MD Referring Physician: Lacey Marion MD [address] [place] [address] documented in this encounter [facility] 10-25-2024 Miscellaneous Notes Left message for patient to remind them to bring their most current medication list with them to their appointment. documented in this encounter [facility] 10-25-2024 Telephone encounter Note Left message for patient to remind them to bring their most current medication list with them to their appointment. [facility] 08-08-2024 Miscellaneous Notes Rec'd urgent notification from [facility] showing new onset of aflutter, HR 121 from 08/07/2024 @19:10, pt reports taking medication at time of occurrence. Patient has hx of afib/ aflutter; ordered to determine if chronic or PAF. Pt is on Xarelto. Will continue to monitor. Strips placed to be scanned into the chart. documented in this encounter [facility] 08-08-2024 Telephone encounter Note Rec'd urgent notification from [facility] showing new onset of aflutter, HR 121 from 08/07/2024 @19:10, pt reports taking medication at time of occurrence. Patient has hx of afib/ aflutter; ordered to determine if chronic or PAF. Pt is on Xarelto. Will continue to monitor. Strips placed to be scanned into the chart. [facility] 07-22-2024 History of Present illness Narrative Abi Victoria Date of visit: 07/22/2024 Date of : 1955 Age: 69 y.o. Patient Active Problem List Diagnosis Paroxysmal atrial fibrillation (CMS-HCC) Atrial flutter (CMS-HCC) Tricuspid valve regurgitation Mitral valve regurgitation Pleural effusion Multiple closed fractures of cervical vertebrae (CMS-HCC) Status post placement of implantable loop recorder Iron deficiency anemia due to chronic blood loss Occult blood positive stool Antral gastritis Diverticulosis large intestine w/o perforation or abscess w/o bleeding Cardiomyopathy (CMS-HCC) Other fatigue No Known Allergies Current Outpatient [...] Edema Abdominal region History of Present Illness Abi Victoria is a 69-year-old here for annual [...] 09/16/2018 Performed by Danilo Campuzano DO at [facility] (EP) ANGIOGRAPHY 12/24/2017 Coronary; Dr. Rocha Atrial tachycardia x 2. CTI redo - SHAYY MARAVILLA ILR In situ N/A 03/28/2021 Performed by Sheryl Plascencia MD at [facility] (EP) CARDIOVERSION 02/26/2018 Dr. Membreno SECTION 1978 SECTION 1982 COLONOSCOPY N/A 07/01/2019 Performed by Harish Castro MD at [facility] EGD N/A 07/01/2019 Performed by Harish Castro MD at [facility] HYSTERECTOMY Loop recorder implant Left 09/16/2018 Performed by Danilo Campuzano DO at [facility] () MAZE PROCEDURE via open heart surgery [...] XL) 50 mg 24 hr tablet Reorder [id number] Score: 2 2.2% Stroke risk per year, 2.9% risk of stroke/TIA/systemic embolism IMPRESSIONS/PLAN 1. Paroxysmal atrial fibrillation ([facility]) - POCT EKG - Wireless Telemetry (In [...] 90 tablet; Refill: 3 2. Atrial flutter ([facility]) - POCT EKG - Wireless Telemetry (In [...] She had lab work done recently at [facility]. Will obtain those results to confirm dosing. She will need prescription refill. Monitor to complete and if persistent arrhythmia may warrant cardioversion that was briefly discuss Tentative follow-up 3 months at the [place] office Patient seen while Dr. Kindra Honeycutt was immediately available in the office suite TODAYS ORDERS Orders Placed This Encounter Procedures Wireless Telemetry (In Office) POCT EKG FOLLOW UP Return in about 3 months (around 10/22/2024) for Next scheduled follow up . PCP: LACEY MARION MD Referring Physician: [place] [address] RAYO Suarez 07/22/24 [id number] documented in this encounter [facility] 11-21-2022 Note PROCEDURE: XR TOES R T [...] by: ILANA PEREZ Date: 2022-11-21 13:01 [facility] Evaluation note Diagnosis Paroxysmal atrial fibrillation (CMS-HCC)- Primary Atrial fibrillation Atrial flutter (CMS-HCC) Status post placement of implantable loop recorder documented in this encounter [facility] SystemEvaluation note* Diagnosis Paroxysmal atrial fibrillation (CMS-HCC)- Primary Atrial fibrillation documented in this encounter [facility] SystemEvaluation note* Diagnosis Paroxysmal atrial fibrillation (CMS-HCC)- Primary Atrial fibrillation Atrial flutter (CMS-HCC) documented in this encounter [facility] SystemInstructionsNot on filedocumented in this encounter [facility] SystemInstructionsNot on filedocumented in this encounter [facility] SystemInstructionsNot on filedocumented in this encounter [facility] SystemInstructionsNot on filedocumented in this encounter [facility] SystemInstructionsNot on filedocumented in this encounter [facility] System Summary Purpose Family History No Family [...] Referral Specialty Diagnoses / Procedures Referred By Jeffrey arguelles Referred To Contact Diagnoses Paroxysmal atrial fibrillation (CMS-HCC) Atrial flutter (CMS-HCC) Procedures Wireless Telemetry (In Office) Adryan Long, [employer]ANT-POWER SYSTEM ENGINEER [address] [place] [address] Referral ID Status Reason Start Date Expiration Date V isits Requested Visits Authorized [id number] Pending Review 07/22/2024 07/22/2025 1 1 Additional Source Comments INFORMATION SOURCE (unrecogn ized section and content) DATE CREATED AUTHOR 04/09/2018 [facility] DATE CREATED AUTHOR AUTHOR'S ORGANIZ ATION 04/20/2021 [facility] DATE CREATED AUTHOR AUTHOR'S ORGANIZ ATION 11/23/2022 [facility] DATE CREATED AUTHOR AUTHOR'S ORGANIZ ATION 08/30/2024 [facility] DATE CREATED AUTHOR AUTHOR'S ORGANIZ ATION 11/01/2024 [facility] Reason for Visit (unrecogniz ed section and content) Reason Comments Follow-up ov-13 month f/u Atrial Fibrillation Palpitations Edema Abdominal region Reason Onset Date Comments Biotel strip 08/08/2024 Reason Comments Follow-up 3month f/u-ls SER-14 day EM-sched with pt Reason Onset Date Comments EP Surgery (PT Education) 10/28/2024 Reason Onset Date Comments EP Surgery (Med Loading) 10/28/2024 Care Teams (unrecognized sec tion and content) Vegetable Loader Relationship Specialty Start Date End Date Lacey Marion MD PCP - General 09/08/18 Vegetable Loader Relationship Specialty Start Date End Date Lacey Marion MD PCP - General 09/08/18 Vegetable Loader Relationship Specialty Start Date End Date Lacey Marion MD PCP - General 09/08/18 Vegetable Loader Relationship Specialty Start Date End Date Lacey Marion MD [facility] 09/08/18 FOR RECORDS PERTAINING TO PATIENTS WHO [...] BE BASED ON THE PRIMARY CLINICAL RECORDS. [facility]. provides no warranty or guarantee of the accuracy or completeness of information in this document.
[2024-11-22 14:45] LABS: Free T3 3.66 pg/mL (2.18-3.98); Thyroid Stimulating Hormone 0.075 uIU/mL (0.358-3.740)
== END 2024-11-22 13:08 | disposition home or self-care (01) ==
LOC: LAB 13:08
PROVIDERS: PCP Family Medicine; Visit Provider Family Medicine
DX: E03.9 Hypothyroidism, unspecified (principal)
CPT/HCPCS: 36415; 84436; 84443; 84481

== ENCOUNTER 2024-12-27 14:45 | Outpatient (OUT) | payer MEDICARE, SELFPAY ==
--- NOTE | 2024-12-27 14:51 | MR_ITS ---
The [address] [address] Patient Name: KWAME LOONEY MRN: [id number] date: 1955 Sex: F Assigned Patient Location: MRI Current Patient Location: MRI Accession/Order Number: [id number] Exam Date: 12/27/2024 16:36 Report Date: 12/27/2024 16:43 At the request of: LACEY ASHRAF MD Procedure: MR abdomen wo/w con MRI OF THE ABDOMEN WITH AND WITHOUT CONTRAST: CLINICAL HISTORY: Liver Lesion COMPARISON: None TECHNIQUE: Multisequence, multiplanar imaging of the abdomen was obtained before and after the use of IV contrast. FINDINGS: The liver appears normal in contour with hepatic steatosis. No intrahepatic ductal dilatation is noted. Multiple T2 hyperintense lesions are seen within the liver parenchyma most too small for accurate characterization largest measuring 1.3 cm in greatest axial dimension involving segment 3 of the liver. This lesion appears to enhance on the postcontrast series. Please note that only a single phase postcontrast series was performed. The gallbladder appears unremarkable. No CBD dilatation. Pancreas spleen and adrenal glands all appear unremarkable. No enhancing renal mass or hydronephrosis. Abdominal aorta appears normal in caliber. No bulky lymphadenopathy or ascites. MR/MR abdomen wo/w con IMPRESSION: A 1.3 CM ENHANCING T2 HYPERINTENSE MASS IS NOTED INVOLVING THE LEFT LOBE OF THE LIVER. FINDING IS INDETERMINATE BASED ON SINGLE PHASE POSTCONTRAST TECHNIQUE. REPEAT MRI USING MULTIPHASE POSTCONTRAST IMAGING OR LIVER CT IS RECOMMENDED. HEPATIC STEATOSIS. Impression dictated by: Nabil Diaz Jr., D.O.12/27/2024 4:43 PM Dictation Location: [place] [address] Electronically authenticated by: [id number] Y Date: 12/27/2024 16:43
== END 2024-12-27 14:46 | disposition home or self-care (01) ==
LOC: MRI 14:45
PROVIDERS: PCP Family Medicine; Visit Provider Family Medicine
DX: K76.89 Other specified diseases of liver (principal); K76.0 Fatty (change of) liver, not elsewhere classified
CPT/HCPCS: 74183; A9575

== ENCOUNTER 2024-12-30 11:50 | Outpatient (OUT) | payer MEDICARE, SELFPAY ==
--- OUTSIDE RECORDS SUMMARY | 2024-12-30 12:03 | XMS_ITS | CCD ---
Author Organization [facility] Care Team Providers Care Undergraduate Advisor Name Role Phone BLAKE MEMBRENO AM Unavailable Unavailable BLAKE MEMBRENO AM Unavailable Unavailable UNKNOWN, PROVIDER Unavailable Unavailable LACEY MARION Unavailable Unavailable SC Unavailable Unavailable UNKNOWN, PROVIDER Unavailable Unavailable PASCALE, [...] Unavailable Lacey Marion MD Primary Care Provider [phone] ADRYAN LONG Attending Unavailable LACEY MARION Referring Unavailable MELISSAY, LACEY M Primary Care Unavailable ADRYAN LONG Referring Unavailable PASCALE LACEY M Primary Care Unavailable BALWINDER PLASCENCIA Admitting Unavailable BALWINDER PLASCENCIA Attending Unavailable BALWINDER PLASCENCIA Referring Unavailable PASCALE LACEY M Primary Care Unavailable BALWINDER PLASCENCIA Attending Unavailable LACEY MARION M Referring Unavailable MELISSAY LACEY M Primary Care Unavailable BALWINDER PLASCENCIA Referring Unavailable HOY, LACEY M Primary Care Unavailable HOY LACEY M Primary Care Unavailable BRYON CASTILLO Attending Unavailable Lacey Marion MD Primary Care Provider [phone] Medications Current Medications Medication Drug Class(es) Dates Sig (Normalized) Sig (Original) dofetilide 0.25 mg oral capsule (5 sources) Antiarrhythmic Start: 12-01-2024 take 1 capsule by mouth once dofetilide (TIKOSYN) 250 MCG capsule Take 1 capsule (250 mcg total) by mouth every 12 (twelve) hours. 60 capsule 6 12/01/2024 Active Start: 11-28-2024 take 250 ug by mouth every twelve hours 250 mcg, oral, Every 12 hours scheduled, First dose on Thu11/28/24 at 1800 flecainide acetate 100 mg oral tablet (10 sources) Antiarrhythmic Start: 08-30-2024 End: 12-01-2024 take 1 tablet by mouth in the morning, then take 1 tablet by mouth at bedtime flecainide (TAMBOCOR) 100 mg tablet Indications: Paroxysmal atrial fibrillation (CMS-HCC) Take 1 tablet (100 mg total) by mouth in the morning and 1 tablet (100 mg total) before bedtime. 60 tablet 6 08/30/2024 12/01/2024 Discontinued (Stop Taking at Discharge) Start: 07-04-2023 End: 07-22-2024 take 1 tablet by mouth in the morning, then take 1 tablet by mouth at bedtime flecainide (TAMBOCOR) 50 mg tablet Indications: Paroxysmal atrial fibrillation (CMS-HCC) Take 1 tablet (50 mg total) by mouth in the morning and 1 tablet (50 mg total) before bedtime. 180 tablet 3 07/22/2024 Active furosemide 20 mg oral tablet (14 sources) Loop Diuretic Start: 07-04-2023 End: 07-22-2024 take 1 tablet by mouth once daily as needed furosemide (LASIX) 20 mg tablet Indications: Paroxysmal atrial fibrillation (CMS-HCC) Take 1 tablet (20 mg total) by mouth daily as needed (lower extremity swelling). 90 tablet 3 07/22/2024 Active glucagon (rdna) 1 mg injection (1 source) Antihypoglycemic Agent Start: 11-28-2024 50 ml glucose 500 mg/ml prefilled syringe (2 sources) Start: 11-28-2024 Start: 11-28-2024 levothyroxine sodium 0.125 mg oral tablet (14 sources) l-Thyroxine Start: 11-29-2024 125 mcg, oral, Daily, First dose (after last modification) on Thu11/29/24 at 0600, Look-alike/sound-alike medication. Verify indication for use Administer on empty stomach at least ONE hour before or TWO hours after food Enteral Feeding: For 7 days or less of tube feeding- do NOT hold tube feedings, after 7 days- hold tube feedings ONE hour before and ONE hour after administration DOES NOT APPLY TO NEONATES Monitor thyroid function tests weekly End: 07-22-2024 take 1 tablet by mouth in the morning levothyroxine (SYNTHROID, LEVOTHROID) 150 MCG tablet Take 1 tablet (150 mcg total) by mouth in the morning. 07/22/2024 Discontinued (Dose adjustment) liothyronine sodium 0.005 mg oral tablet (10 sources) l-Triiodothyronine Start: 11-30-2024 take 10 ug by mouth once daily before breakfast 10 mcg, oral, Every morning before breakfast, First dose (after last modification) on Thu11/30/24 at 0700, Look-alike/sound-alike medication - verify indication for use. Start: 11-29-2024 End: 11-29-2024 take 10 ug by mouth once daily 10 mcg, oral, Daily, First dose (after last modification) on Thu11/29/24 at 0900, Look-alike/sound-alike medication - verify indication for use. take 2 tablets by mo [facility] in the morning liothyronine (CYTOMEL) 5 MCG tablet Take 2 tablets (10 mcg total) by mouth in the morning. Active 50 ml magnesium sulfate 40 mg/ml injection (2 sources) Start: 11-29-2024 2,000 mg, intr avenous, at 25 mL/hr, Administer over 120 Minutes, As needed, Magnesium level 1.7 to 1.9 mg/dL, or Ionized Magnesium level 0.45 to 0.5 mmol/L., Starting on Thu11/29/24 at 0754, Recheck magnesium level 4 hours after infusion complete. With each magnesium result continue the replacement orders as needed. Start: 11-29-2024 4,000 mg, intr avenous, at 25 mL/hr, Administer over 240 Minutes, As needed, Magnesium level 1.6 mg/dL or less, or Ionized Magnesium level 0.44 mmol/L or less, Starting on Thu11/29/24 at 0754, Recheck magnesium level 4 hours after infusion complete. With each magnesium result continue the replacement orders as needed. 24 hr metoprolol succinate 25 mg extended release oral tablet (16 sources) beta-Adrenergic Maude Start: 12-01-2024 take 1 tablet by mouth every twenty-four hours in the morning, then take 1 tablet by mouth at bedtime metoprolol succinate XL (TOPROL XL) 25 mg 24 hr tablet Take 1 tablet (25 mg total) by mouth in the morning and 1 tablet (25 mg total) before bedtime. 60 tablet 6 12/01/2024 Active Start: 11-29-2024 25 mg, oral, 2 times daily, First dose (after last modification) on Thu11/29/24 at 1900, Administer for systolic blood pressure greater than 95 and perform recheck Q 5 minutes x3 if needed Look-alike/sound-alike medication - verify indication for use. Do not crush or chew. Start: 11-29-2024 End: 11-29-2024 take 25 mg by mouth once 25 mg, oral, Once, On 09/12 at 0915, For 1 dose, Look-alike/sound-alike medication - verify indication for use. Do not crush or chew. Start: 07-04-2023 End: 12-01-2024 take 1 tablet by mouth every twenty-four hours in the morning metoprolol succinate XL (TOPROL XL) 50 mg 24 hr tablet Indications: Paroxysmal atrial fibrillation (CMS-HCC) Take 1 tablet (50 mg total) by mouth in the morning. 90 tablet 3 07/22/2024 Active ondansetron 4 mg disintegrating oral tablet (1 source) Serotonin-3 Receptor Antagonist Start: 12-10-2024 ondansetron ODT (ZOFRAN ODT) 4 mg disintegrating tablet Indications: RUQ pain Dissolve 1 tablet (4 mg total) on tongue every 8 (eight) hours as needed for nausea for up to 10 doses. 10 tablet 12/10/2024 Active pantoprazole 40 mg delayed release oral tablet (13 sources) Proton Pump Inhibitor Start: 11-29-2024 40 mg, oral, Daily, First dose on Thu11/29/24 at 0000, Look-alike/sound-al varun medication - verify indication for use. If patient is receiving enteral feeding, consider alternative PPI or continue IV pantoprazole until the delayed-release tablet can be taken orally, Indication: GERD Potassium Chloride (1 source) Start: 11-29-2024 potassium chloride (K-TAB,KLOR-CON) CR tablet 30-50 mEq rivaroxaban 15 mg oral tablet (14 sources) Factor Xa Inhibitor Start: 07-22-2024 take 1 tablet by mouth in the morning, then take 1 tablet by mouth in the morning rivaroxaban (XARELTO) 15 mg tablet Indications: Paroxysmal atrial fibrillation (CMS-HCC) , Atrial flutter (CMS-HCC) Take 1 tablet (15 mg total) by mouth in the morning. TAKE 1 TABLET (15 MG TOTAL) BY MOUTH IN THE MORNING. 30 tablet 6 07/22/2024 Active Start: 06-27-2024 take 1 tablet by mike th in the morning, then take 1 tablet by mouth in the morning rivaroxaban (XARELTO) 15 mg tablet Indications: Paroxysmal atrial fibrillation (CMS-HCC) , Atrial flutter (CMS-HCC) Take 1 tablet (15 mg total) by mouth in the morning. TAKE 1 TABLET (15 MG TOTAL) BY MOUTH IN THE MORNING. 30 tablet 06/27/2024 Active Start: 07-04-2023 End: 06-27-2024 take 15 mg by mouth once daily at mealtime 15 mg, oral, Nightly, First dose (after last modification) on Thu11/29/24 at 0030, Take/Give with food., Indication: Nonvalvular Atrial Fibrillation (NVAF) 125 ml sodium chloride 9 mg/ ml prefilled syringe (4 sources) Start: 11-28-2024 3 mL, intraven ous, Every 12 hours scheduled, First dose on Thu11/28/24 at 2100 Start: 11-28-2024 Start: 11-28-2024 End: 11-29-2024 take 20 mL intravenously every hour as needed 20 mL/hr, intravenous, Continuous PRN, to maintain patency of lines, Starting on Thu11/28/24 at 1531, For 1 day Start: 11-28-2024 sulfamethoxazole 800 mg / trimethoprim 160 mg oral tablet (5 sources) Dihydrofolate Reductase Inhibitor Antibacterial, Sulfonamide Antimicrobial End: 12-01-2024 take 1 tablet by mouth once in the morning sulfamethoxazole-trimethoprim (BACTRIM DS) 800-160 mg per tablet Take 1 tablet by mouth in the morning and 1 tablet before bedtime. 12/01/2024 Discontinued (Stop Taking at Discharge) Completed/Discontinued Medications Medication Drug Class(es) Dates Sig (Normalized) Sig (Original) acetaminophen 500 mg oral tablet (1 source) Start: 11-28-2024 End: 11-28-2024 take 1000 mg by mouth once 1,000 mg, oral, Once, On Thu11/28/24 at 1815, For 1 dose 10 ml propofol 10 mg/ml injection (1 source) General Anesthetic Start: 11-30-2024 End: 11-30-2024 intravenous, Code/trauma/sedat ion medication, Starting on Thu11/30/24 at 1019, Intra-Procedure (CV) Problems Active Problems Problem Classification Problem Date Documented Date Episodic/Chronic Abdominal pain (4 sources) Right upper quadrant pain; Translations: [Epigastric pain] Onset: 5 Episodic Cardiac dysrhythmias (20 sources) Unspecified atrial fibrillation; Translations: [Unspecified atrial flutter] Onset: 8 01-30-2021 Chronic Conduction disorders (2 sources) Pre-excitation syndrome; Translations: [PRE-EXCITATION SYNDROME] Onset: 8 Chronic Congestive heart failure; nonhypertensive (4 sources) Acute combined systolic (congestive) and diastolic (congestive) heart failure; Translations: [ACUTE COMB SYSTOLIC AND DIASTOLIC CHF] Onset: 2 Chronic Deficiency and other anemia (11 sources) Iron deficiency anemia due to blood loss; Translations: [Iron deficiency anemia secondary to blood loss (chronic)] Onset: 9 06-23-2019 Chronic Diverticulosis and diverticulitis (11 sources) Diverticulosis of large intestine; Translations: [Diverticulosis of large intestine without perforation or abscess without bleeding] Onset: 9 07-11-2019 Chronic Esophageal disorders (1 source) Gastro-esophageal reflux disease without esophagitis; Translations: [GERD WITHOUT ESOPHAGITIS] Onset: 2 Chronic Gastritis and duodenitis (11 sources) Gastritis; Translations: [Unspecified chronic gastritis without bleeding] Onset: 9 07-11-2019 Chronic Heart valve disorders (20 sources) Rheumatic disorders of both mitral and tricuspid valves; Translations: [Tricuspid valve regurgitation] Onset: 8 09-07-2018 Chronic Nutritional deficiencies (1 source) Unspecified protein-calorie malnutrition; Translations: [UNSPECIFIED PROTEIN-CALORIE MALNUTRITION] Onset: 8 Chronic Osteoarthritis (1 source) Unspecified osteoarthritis, unspecified site; Translations: [UNSPECIFIED OSTEOARTHRITIS UNS SITE] Onset: 2 Chronic Other circulatory disease (12 sources) History of cardiovascular surgery; Translations: [Presence of other cardiac implants and grafts] Onset: 8 03-31-2019 Chronic Other circulatory disease (1 source) Presence of other cardiac implants and grafts; Translations: [Presence of other cardiac implants and grafts] Onset: 9 Chronic Other connective tissue disease (4 sources) Pain in right toe(s); Translations: [PAIN IN RIGHT TOES] Onset: 3 Episodic Other liver diseases (1 source) Liver disease, unspecified; Translations: [Liver disease, unspecified] Onset: 5 Chronic Other screening for suspected conditions (not mental disorders or infectious disease) (1 source) Abnormal electrocardiogram [ECG] [EKG]; Translations: [Abnormal electrocardiogram (ECG) (EKG)] Onset: 5 Episodic Maria Del Carmen-; endo-; and myocarditis; cardiomyopathy (except that caused by tuberculosis or sexually transmitted disease) (11 sources) Cardiomyopathy; Translations: [Cardiomyopathy, unspecified] Onset: 1 01-30-2021 Chronic Substance-related disorders (2 sources) Nicotine dependence, cigarettes, uncomplicated; Translations: [NICOTINE DEPENDENCE, CIGARETTES, UNCOMPLICATED] Onset: 8 Chronic Thyroid disorders (2 sources) Hypothyroidism, unspecified; Translations: [HYPOTHYROIDISM, UNSPECIFIED] Onset: 8 Chronic Unclassified (2 sources) Unknown / UNK(Unknown) Onset: 8 Unclassified (1 source) CONTACT W/AND (SUSP) EXPOS COVID-19; Translations: [CONTACT W/AND (SUSP) EXPOS COVID-19] Onset: 2 Past or Other Problems Problem Classification Problem Date Documented Da te Episodic/Chronic Acute posthemorrhagic anemia (1 source) Acute posthemorrhagic anemia; Translations: [ACUTE POSTHEMORRHAGIC ANEMIA] Onset: 2 Episodic Cardiac dysrhythmias (1 source) Palpitations Onset: 4 Episodic Gastrointestinal hemorrhage (1 source) Gastrointestinal hemorrhage, unspecified; Translations: [GASTROINTESTINAL HEMORRHAGE UNS] Onset: 2 Episodic Immunizations and screening for infectious disease (1 source) Encounter for immunization; Translations: [ENCOUNTER FOR IMMUNIZATION] Onset: 2 Episodic Malaise and fatigue (11 sources) Fatigue; Translations: [Other fatigue] Onset: 2 06-30-2022 Episodic Mood disorders (3 sources) Mood disorders Onset: 5 11-28-2024 Nonspecific chest pain (3 sources) Chest pain, unspecified; Translations: [CHEST PAIN, UNSPECIFIED] Onset: 8 Episodic Other aftercare (1 source) long term care pharmacist (current) use of antithrombotics/antipl atelets; Translations: [ASSISTED (CURRENT) USE OF ANTITHROMBOTICS/ANTIPL ATELETS] Onset: 8 Episodic Other aftercare (1 source) Other press tender long goods (current) drug therapy; Translations: [OTH ASSISTED CURRENT DRUG THERAPY] Onset: 2 Episodic Other aftercare (1 source) penitentiary (current) use of anticoagulants; Translations: [[employer]BER CURRNT USE ANTICOAGULANTS] Onset: 2 Episodic Other fractures (11 sources) Multiple closed fractures of cervical vertebrae; Translations: [Fracture of neck, unspecified, initial encounter] Onset: 8 10-18-2018 Episodic Other gastrointestinal disorders (11 sources) Occult blood in stools; Translations: [Other fecal abnormalities] Onset: 9 06-23-2019 Episodic Pleurisy; pneumothorax; pulmonary collapse (11 sources) Pleural effusion; Translations: [Pleural effusion, not elsewhere classified] Onset: 8 09-22-2018 Episodic Residual codes; unclassified (1 source) Acquired absence of both cervix and uterus; Translations: [ACQUIRED ABSENCE BOTH CERVIX AND UTERUS] Onset: 2 Episodic Residual codes; unclassified (1 source) Edema Onset: 4 Episodic Unclassified (1 source) Body mass index (BMI) 21.0-21.9, adult; Translations: [BODY MASS INDEX (BMI) 21.0-21.9, ADULT] Onset: 8 Episodic Results Test Name Value Interpretation Reference Range Facility CBC AND AUTO DIFFon 12-10-19 25 ABSOLUTE BASOPHIL 0.1 X10E9/L Normal [facility].0-0.2 [facility] Comment on above: Performed By: #### C BCA, CMP, 3040-3 #### [facility] ([id number]) [address] [place] [address] 43901 ABSOLUTE NEUTROPHIL 3.8 X10E9/L Normal 1.5-6.6 [facility] Comment on above: Performed By: #### C DAMIAN, CMP, 3039-3 #### [facility] ([id number]) [address] [place] [address] 54669 Basophils/100 WBC (Bld) 1.2 % Normal [facility] Comment on above: Performed By: #### Siria SALGADO, CMP, 3 #### [facility] ([id number]) [address] [place] [address] 45620 Eosinophils (Bld) [#/Vol] 0.2 10*3/uL Normal 0.0-0.4 [facility] Comment on above: Performed By: #### Siria SALGADO, CMP, 3 #### [facility] ([id number]) [address] [place] [address] 10281 Eosinophils/100 WBC (Bld) 3.7 % Normal [facility] Comment on above: Performed By: #### Siria SALGADO, CMP, 3 #### [facility] ([id number]) [address] [place] [address] 53605 Erythrocyte distribution width (RBC) [Ratio] 12.6 % Normal 11.5-15.0 [facility] Comment on above: Performed By: #### Siria SALGADO, CMP, 3039-12 #### [facility] ([id number]) [address] [place] [address] 24974 Hematocrit (Bld) [Volume fraction] 45.2 % Normal 35-47 [facility] Comment on above: Performed By: #### Siria SALGADO, CMP, 3039-3 #### [facility] ([id number]) [address] [place] [address], [place] [address] Hemoglobin (Bld) [Mass/Vol] 15.5 g/dL Normal 11.7-15.5 [facility] Comment on above: Performed By: #### Siria SALGADO CMP, 3039-3 #### [facility] ([id number]) [address] [place] [address] 09494 Lymphocytes (Bld) [#/Vol] 1.0 10*3/uL Normal 1.0-3.5 [facility] Comment on above: Performed By: #### Siria SALGADO [facility], 3039-12 #### [facility] ([id number]) [address] [place] [address] 43560 Lymphocytes/100 WBC (Bld) 17.3 % Normal [facility] Comment on above: Performed By: #### Siria SALGADO CMP, 3039-12 #### [facility] ([id number]) [address] [place] [address] 61878 MCH (RBC) [Entitic mass] 31.5 pg Normal 27-34 [facility] Comment on above: Performed By: #### Siria SALGADO [facility], 3039-12 #### [facility] ([id number]) [address] [place] [address] 08313 MCHC (RBC) [Mass/Vol] 34.2 g/dL Normal 32-36 [facility] Comment on above: Performed By: #### Siria SALGADO CMP, 3039-12 #### [facility] ([id number]) [address] [place] [address] 22612 MCV (RBC) [Entitic vol] 92 fL Normal 80-100 [facility] Comment on above: Performed By: #### Siria SALGADO CMP, 3039-12 #### [facility] ([id number]) [address] [place] [address] 26020 Monocytes (Bld) [#/Vol] 0.5 10*3/uL Normal 0-0.9 [facility] Comment on above: Performed By: #### Siria SALGADO CMP, 3039-3 #### [facility] ([id number]) [address] [place] [address] 51198 Monocytes/100 WBC (Bld) 8.7 % Normal [facility] Comment on above: Performed By: #### Siria SALGADO CMP, 3039-3 #### [facility] ([id number]) [address] [place] [address] 11257 Neutrophils/100 WBC (Bld) 69.1 % Normal [facility] Comment on above: Performed By: #### Siria SALGADO CMP, 3 #### [facility] ([id number]) [address] [place] [address] 67806 Platelet mean volume (Bld) [Entitic vol] 8.1 fL Normal 7-12 [facility] Comment on above: Performed By: #### Siria SALGADO CMP, 3039-12 #### [facility] ([id number]) [address] [place] [address] 90232 Platelets (Bld) [#/Vol] 217 10*3/uL Normal 150-450 [facility] Comment on above: Performed By: #### Siria SALGADO CMP, 3 #### [facility] ([id number]) [address] [place] [address] 45459 RBC COUNT 4.91 X10E12/L Normal 3.80-5.20 [facility] Comment on above: Performed By: #### Siria SALGADO CMP, 3039-3 #### [facility] ([id number]) [address] [place] [address] 83686 WBC (Bld) [#/Vol] 5.5 10*3/uL Normal 4.0-11.0 [facility] Comment on above: Performed By: #### Siria SALGADO CMP, 3040-3 #### [facility] ([id number]) [address] [place] [address] 31433 COMPREHENSIVE METABOLIC PANE Jian 12-10-2024 Albumin [Mass/Vol] 4.2 g/dL Normal 3.2-5.3 [facility] Comment on above: Performed By: #### C BCA, CMP, 0-3 #### [facility] ([id number]) [address] [place] [address] 77134 ALP [Catalytic activity/Vol] 69 U/L Normal 39-130 [facility] Comment on above: Performed By: #### C BCA, CMP, 3039-3 #### [facility] ([id number]) [address] [place] [address] 43076 ALT [Catalytic activity/Vol] 51 U/L High 0-31 [facility] Comment on above: Performed By: #### C BCA, CMP, 3039-3 #### [facility] ([id number]) [address] [place] [address] 51123 Anion gap [Moles/Vol] 7 mmol/L Normal 5-15 [facility] Comment on above: Performed By: #### C BCA, CMP, 0-3 #### [facility] ([id number]) [address] [place] [address] 45444 AST [Catalytic activity/Vol] 35 U/L Normal 0-41 [facility] Comment on above: Performed By: #### C BCA, CMP, 3039-3 #### [facility] ([id number]) [address] [place] [address] 61141 Bilirubin [Mass/Vol] 0.9 mg/dL Normal 0.3-1.2 [facility] Comment on above: Performed By: #### C BCA, CMP, 0-3 #### [facility] ([id number]) [address] [place] [address] 69770 Calcium [Mass/Vol] 9.2 mg/dL Normal 8.5-10.5 [facility] Comment on above: Performed By: #### C DAMIAN [facility], 3039-3 #### [facility] ([id number]) [address] [place] [address] 96501 Chloride [Moles/Vol] 106 mmol/L Normal 98-109 [facility] Comment on above: Performed By: #### C DAMIAN [facility], 3 #### [facility] ([id number]) [address] [place] [address] 15735 CO2 [Moles/Vol] 25 mmol/L Normal 22-32 [facility] Comment on above: Performed By: #### Siria SALGADO CMP, 3 #### [facility] ([id number]) [address] [place] [address] 46681 Creatinine [Mass/Vol] 1.06 mg/dL High 0.40-1.00 [facility] Comment on above: Result Comment: METH OD TRACEABLE TO IDMS STANDARD Performed By: #### C DAMIAN [facility], 3 #### [facility] ([id number]) [address] [place] [address] 55402 GFR/1.73 sq M.predicted among non-blacks MDRD (S/P/Bld) [Vol rate/Area] 57 mL/min/{1.73_m2} Low >59 [facility] Comment on above: Result Comment: Reported eGFR is based on the CKD-EPI 2020 equation that does not use a race coefficient. Performed By: #### C JOSÉ ANTONIO SALGADO, 0-3 #### [facility] ([id number]) [address] [place] [address] 65407 Glucose [Mass/Vol] 107 mg/dL High 65-99 [facility] Comment on above: Performed By: #### Siria SALGADO CMP, 3039-3 #### [facility] ([id number]) [address] [place] [address] 88162 Potassium [Moles/Vol] 3.9 mmol/L Normal 3.5-5.0 [facility] Comment on above: Performed By: #### C BCA CMP, 3040-3 #### [facility] ([id number]) [address] [place] [address] 57391 Protein [Mass/Vol] 7.4 g/dL Normal 6.0-8.0 [facility] Comment on above: Performed By: #### C DAMIAN CMP, 3040-3 #### [facility] ([id number]) [address] [place] [address] 23817 Sodium [Moles/Vol] 138 mmol/L Normal 134-146 [facility] Comment on above: Performed By: #### C BCA [facility], 3040-3 #### [facility] ([id number]) [address] [place] [address] 20369 Urea nitrogen [Mass/Vol] 22 mg/dL Normal 5-27 [facility] Comment on above: Performed By: #### Siria BCA [facility], 3040-3 #### [facility] ([id number]) [address] [place] [address] ABDOMEN AND PELVIS W CONT on 12-10-2024 CT ABDOMEN AND PELVIS W CONT CT ABDOMEN AND PELVIS W CONT CT ABDOMEN AND PELVIS W CONT HISTORY: Nausea, vomiting, postprandial right upper quadrant abdominal pain for 2 weeks COMPARISON STUDY: CT abdomen and pelvis 01/24/2013. TECHNIQUE: CT scan of the abdomen and pelvis performed with IV no oral contrast. 100 mL of Omnipaque 300 was injected intravenously without complication. Coronal and sagittal reformats generated and reviewed. All CT scans at this facility use dose modulation, iterative reconstruction, and/or weight based dosing when appropriate to reduce radiation dose to as low as reasonably achievable. FINDINGS: Partially visualized tree-in-bud nodularity within the right middle lobe with associated emphysematous changes. Bilateral subsegmental dependent atelectasis. Mild to moderate coronary calcifications. No pericardial or pleural effusion. Normal hepatic contours. Granulomatous calcifications of the liver. There is a 1.1 cm enhancing lesion in the left hepatic lobe which is similar in appearance to 2013 comparison and likely represents a benign hemangioma (series 2 image 26). No follow-up required for that finding. There is a 1 cm greater than simple fluid attenuating lesion in the right hepatic lobe (series 2 image 17) that is indeterminate. It is complex. Several additional subcentimeter low attenuating lesions in the liver are too small to accurately characterize. The gallbladder is unremarkable. No biliary ductal dilatation. Granulomatous spleen. The pancreas is unremarkable. The adrenals are normal. Mildly atrophic kidneys without calculus or collecting system dilatation. No suspicious renal lesion. The ureters and bladder are unremarkable. No dilated loops of bowel. No bowel wall thickening. Colonic diverticulosis without inflammatory change. The appendix is unremarkable. The terminal ileum is unremarkable. No lymphadenopathy. No free fluid or free air. Nonaneurysmal abdominal aorta with calcified and noncalcified atherosclerotic disease. Status post hysterectomy. Multilevel degenerative changes of the spine without vertebral body height loss. The abdominal wall is unremarkable. No acute osseous lesion or abnormality. ___ IMPRESSION: * No cholelithiasis or biliary ductal dilatation. For further assessment of right upper quadrant pain and nausea consider gallbladder ultrasound. * Incidental hepatic lesion measuring 1 cm is indeterminate for neoplasm. Follow-up contrast liver MRI is recommended. * Partially visualized tree-in-bud nodularity within the right middle lobe could represent infectious versus inflammatory etiology. Due to patient's history of tobacco use, recommend a CT chest followed by yearly low dose lung screening. BLANK Schmid et al. Management of Incidental Liver Lesions on CT: A White Paper of the ACR Incidental Findings Committee. J Am Berny Radiol 2017;14:1429-37. Approved by Resident Julio Valdez MD on 12/10/2024 1:10 PM Deric Valle MD have personally reviewed the image(s) and agree with and/or edited the report Finalized by Deric Collazo MD on 12/10/2024 1:[address] [facility]on 12-10-2024 Lipase [Catalytic activity/Vol] 40 U/L Normal 17-40 [facility] Comment on above: Performed By: #### C BCA, CMP, 3040-3 #### [facility] ([id number]) [address] [place] [address] URN MACROSCOPIC NURon 2024 BILIRUBIN WILFRID Negative Normal NEG [facility] Comment on above: Performed By: #### N UM #### [facility] ([id number]) [address] [place] [address] [place] [address] BLOOD/HGB WILFRID MODERATE Abnormal NEG [facility] Comment on above: Performed By: #### N UM #### [facility] ([id number]) [address] [place] [address] [place] [address] GLUCOSE WILFRID Negative Normal NEG [facility] Comment on above: Performed By: #### N UM #### [facility] ([id number]) [address] [place] [address] [place] [address] KETONES WILFRID Negative Normal NEG [facility] Comment on above: Performed By: #### N UM #### [facility] ([id number]) [address] [place] [address] [place] [address] LEUKOCYTE ESTERASE WILFRID Negative Normal NEG [facility] Comment on above: Performed By: #### N UM #### [facility] ([id number]) [address] [place] [address] [place] [address] NITRITE WILFRID Negative Normal NEG [facility] Comment on above: Performed By: #### N UM #### [facility] ([id number]) [address] [place] [address] [place] [address] PH WILFRID 5.5 Normal 5.0-8.5 [facility] Comment on above: Performed By: #### N UM #### [facility] ([id number]) [address] [place] [address] [place] [address] PROTEIN WILFRID Negative Normal NEG [facility] Comment on above: Performed By: #### N UM #### [facility] ([id number]) [address] [place] [address] SPECIFIC GRAVITY WILFRID 1.015 Normal 1.003-1.03 5 [facility] Comment on above: Performed By: #### N UM #### [facility] ([id number]) [address] [place] [address] UROBILINOGEN WILFRID 0.2 eu/dL Normal <1.1 [facility] Comment on above: Performed By: #### N UM #### [facility] ([id number]) [address] [place] [address] BASIC METABOLIC PANLon 12-01 Anion gap [Moles/Vol] 8 mmol/L Normal 5-15 [facility] Comment on above: Performed By: #### Addi AYALA, #### [facility] ([id number]) [address] [place] [address] Calcium [Mass/Vol] 8.6 mg/dL Normal 8.5-10.5 [facility] Comment on above: Performed By: #### Addi AYALA, #### [facility] ([id number]) [address] [place] [address] Chloride [Moles/Vol] 112 mmol/L High 98-109 [facility] Comment on above: Performed By: #### Addi AYALA, #### [facility] ([id number]) [address], [address] [place] [address] CO2 [Moles/Vol] 25 mmol/L Normal 22-32 [facility] Comment on above: Performed By: #### Addi AYALA, #### [facility] ([id number]) [address], [address] [place] [address] Creatinine [Mass/Vol] 1.17 mg/dL High 0.40-1.00 [facility] Comment on above: Result Comment: METH OD TRACEABLE TO IDMS STANDARD Performed By: #### Addi AYALA, #### [facility] ([id number]) [address] [place] [address] GFR/1.73 sq M.predicted among non-blacks MDRD (S/P/Bld) [Vol rate/Area] 51 mL/min/{1.73_m2} Low >59 [facility] Comment on above: Result Comment: Reported eGFR is based on the CKD-EPI 2020 equation that does not use a race coefficient. Performed By: #### Addi AYALA, #### [facility] ([id number]) [address] [place] [address] Glucose [Mass/Vol] 101 mg/dL High 65-99 [facility] Comment on above: Performed By: #### Addi AYALA, #### [facility] ([id number]) [address] [place] [address] Potassium [Moles/Vol] 4.1 mmol/L Normal 3.5-5.0 [facility] Comment on above: Performed By: #### Addi AYALA, #### [facility] ([id number]) [address] [place] [address] Sodium [Moles/Vol] 145 mmol/L Normal 134-146 [facility] Comment on above: Performed By: #### Addi AYALA, #### [facility] ([id number]) [address] [place] [address] Urea nitrogen [Mass/Vol] 23 mg/dL Normal 5-27 [facility] Comment on above: Performed By: #### Addi AYALA, #### [facility] ([id number]) [address] [facility], [address] [place] [address] Basic Metabolic Panelon 11-19 Anion gap [Moles/Vol] 8 mmol/L 5 - 15 mmol/L [facility] Calcium [Mass/Vol] 8.6 mg/dL 8.5 - 10.5 mg/dL [facility] Chloride [Moles/Vol] 112 mmol/L High 98 - 109 mmol/L [facility] CO2 [Moles/Vol] 25 mmol/L 22 - 32 mmol/L [facility] Creatinine [Mass/Vol] 1.17 mg/dL High 0.40 - 1.00 mg/dL [facility] Comment on above: METHOD TRACEABLE TO [facility] STANDARD eGFR (CKD-EPI)non-race dependent 51 Low - PINF [facility] Comment on above: Reported eGFR is based on the CKD-EPI 2020 equation that does not use a race coefficient. Glucose [Mass/Vol] 101 mg/dL High 65 - 99 mg/dL [facility] Interpretation and review of laboratory results Abnormal [facility] Potassium [Moles/Vol] 4.1 mmol/L 3.5 - 5.0 mmol/L [facility] Sodium [Moles/Vol] 145 mmol/L 134 - 146 mmol/L [facility] Urea nitrogen [Mass/Vol] 23 mg/dL 5 - 27 mg/dL [facility] EKGon 12-01-2024 TRACEMASTERVUE [facility] MAGNESIUMon 12-01-2024 Magnesium [Mass/Vol] 2.0 mg/dL Normal 1.8-2.6 [facility] Comment on above: Performed By: #### [place], [address]-2 #### [facility] ([id number]) [address] [facility], [address] [place] [address] Magnesiumon 12-01-2024 Magnesium [Mass/Vol] 2 mg/dL 1.8 - 2.6 mg/dL [facility] No Panel Informationon 12-01 [facility] BASIC METABOLIC PANLon 11-30 Anion gap [Moles/Vol] 7 mmol/L Normal 5-15 [facility] Comment on above: Performed By: #### Addi AYALA, #### [facility] ([id number]) [address] [facility] [address] [place] [address] Calcium [Mass/Vol] 8.5 mg/dL Normal 8.5-10.5 [facility] Comment on above: Performed By: #### Addi AYALA, #### [facility] ([id number]) [address], [facility] [address] [place] [address] Chloride [Moles/Vol] 110 mmol/L High 98-109 [facility] Comment on above: Performed By: #### Addi AYALA, #### [facility] ([id number]) [address] [address] CO2 [Moles/Vol] 27 mmol/L Normal 22-32 [facility] Comment on above: Performed By: #### Addi AYALA, #### [facility] ([id number]) [address] [address] Creatinine [Mass/Vol] 0.98 mg/dL Normal 0.40-1.00 [facility] Comment on above: Result Comment: METH OD TRACEABLE TO IDMS STANDARD Performed By: #### Addi AYALA, #### [facility] ([id number]) [address] [address] GFR/1.73 sq M.predicted among non-blacks MDRD (S/P/Bld) [Vol rate/Area] 63 mL/min/{1.73_m2} Normal >59 [facility] Comment on above: Result Comment: Reported eGFR is based on the CKD-EPI 2020 equation that does not use a race coefficient. Performed By: #### Addi AYALA, #### [facility] ([id number]) [address] [place] [address] Glucose [Mass/Vol] 83 mg/dL Normal 65-99 [facility] Comment on above: Performed By: #### Addi AYALA, 87262-1 #### [facility] ([id number]) [address] [place] [address] Potassium [Moles/Vol] 4.2 mmol/L Normal 3.5-5.0 [facility] Comment on above: Performed By: #### Addi AYALA, 33293-9 #### [facility] ([id number]) [address] [place] [address] Sodium [Moles/Vol] 144 mmol/L Normal 134-146 [facility] Comment on above: Performed By: #### Addi AYALA, #### [facility] ([id number]) [address] [place] [address] Urea nitrogen [Mass/Vol] 20 mg/dL Normal 5-27 [facility] Comment on above: Performed By: #### Addi AYALA, 77395-0 #### [facility] ([id number]) [address] [place] [address] Basic Metabolic Panelon 11-19 Anion gap [Moles/Vol] 7 mmol/L 5 - 15 mmol/L [facility] Calcium [Mass/Vol] 8.5 mg/dL 8.5 - 10.5 mg/dL [facility] Chloride [Moles/Vol] 110 mmol/L High 98 - 109 mmol/L [facility] CO2 [Moles/Vol] 27 mmol/L 22 - 32 mmol/L [facility] Creatinine [Mass/Vol] 0.98 mg/dL 0.40 - 1.00 mg/dL [facility] Comment on above: METHOD TRACEABLE TO IDMS STANDARD eGFR (CKD-EPI)non-race dependent 63 - PINF [facility] Comment on above: Reported eGFR is based on the CKD-EPI 2020 equation that does not use a race coefficient. Glucose [Mass/Vol] 83 mg/dL 65 - 99 mg/dL [facility] Interpretation and review of laboratory results Abnormal [facility] Potassium [Moles/Vol] 4.2 mmol/L 3.5 - 5.0 mmol/L [facility] Sodium [Moles/Vol] 144 mmol/L 134 - 146 mmol/L [facility] Urea nitrogen [Mass/Vol] 20 mg/dL 5 - 27 mg/dL [facility] externalon Table formatting fro m the original result was not included. Images from the original result were not included. Date of Admission: 11/28/2024 Date of Procedure: 11/30/2024 PROCEDURE: Transthoracic Direct Current Cardioversion DIAGNOSIS AND PRESENTING RHYTHM: atypical atrial flutter vs AT POSTPROCEDURE DIAGNOSIS: Same TIME-OUT: A time-out was completed verifying correct patient, procedure, positioning, and special equipment prior to beginning this procedure. CONSENT: The risks, benefits, approach and potential complications of the procedure were discussed. The patient was able to give written informed consent after revisiting the grant portions of the risk versus benefit profile of the procedure. See previous notes for additional details. This detailed informed consent process utilized mutual and shared decision making process between the physician, patient, and potentially patient's selected family and friends. 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 She was previously on flecainide 100 mg BID along with Toprol 50 mg qday but had recurrent AT vs atypical atrial flutter. She has been started on dofetilide 250 mcg BID doses 4 and 5 today. ANTICOAGULATION STRATEGY PRIOR TO AND POST PROCEDURE: Xarelto. The last dose of anticoagulant was confirmed to have been taken yesterday. ATTENDING: BALWINDER PLASCENCIA MD. ANESTHESIA: Deep sedation with propofol 50 mg. PT/INR: Lab Results Component Value Date INR 1.2 09/22/2018 PTT: No results found for: APTT CBC: Lab Results Component Value Date WBC 6.8 11/22/2024 HGB 14.4 11/22/2024 HCT 43.0 11/22/2024 MCV 94 11/22/2024 RDW 13.4 11/22/2024 PLT 213 11/22/2024 BMP: Lab Results Component Value Date K 4.2 11/30/2024 K 4.0 09/11/2021 CL 110 (H) 11/30/2024 CO2 27 11/30/2024 BUN 20 11/30/2024 CREATININE 0.98 11/30/2024 EGFR 63 11/30/2024 GLU 83 11/30/2024 GLU 99 10/17/2018 Vital Signs: BP (!) 89/6 Pulse 68 Temp 36.8 C (98.2 F) (Oral) Resp 19 Ht 165.1 cm (5' 5 ) Wt 67.6 kg (149 lb 0.5 oz) SpO2 95% BMI 24.80 kg/m O2 Flow Rate (L/min): 0 L/min Admit Weight: 66 kg (145 lb 8.1 oz) BMI: Body mass index is 24.8 kg/m . Procedural Narrative: A time-out was completed verifying correct patient, procedure, positioning, and special equipment prior to beginning this procedure. The patient was brought to the electrophysiology procedure area in a fasting state and placed on a assistant professor of german. External defibrillation pads were applied in the anterior-posterior configuration. Surface electrocardiography confirmed atypical atrial flutter vs AT, rate controlled. Once adequate level of anesthesia was obtained, a synchronized biphasic shock of 360 Joules energy was delivered. The resultant rhythm was NSR. Neurologic examination following recovery from anesthesia demonstrated no focal deficits. The patient tolerated the procedure well and there were no complications. CONCLUSION: Successful DC cardioversion of persistent atypical atrial flutter. RECOMMENDATION: 1. This patient will require at least 4 weeks of uninterrupted anticoagulation. 2. Continue dofetilide loading dose 5 tonight w/ serial EKG's 2 hours after each dose 3. Will obtain post-cardioversion EKG Balwinder Plascencia MD/ONUR, FACC, RS Cardiac Electrophysiology [facility] Cardiology Post Deep Sedation Evaluation BP (!) 89/6 Pulse 68 Temp 36.8 C (98.2 F) (Oral) Resp 19 Ht 165.1 cm (5' 5 ) Wt 67.6 kg (149 lb 0.5 oz) SpO2 95% BMI 24.80 kg/m Patient Evaluated: in procedure room Patient Participation: Complete - patient participated Patient Level of Consciousness: Awake Pain Management: Adequate Airway Patency: Patent Anesthetic Complications: No Cardiovascular Status: Hemodynamically Stable Respiratory Status: Stable/Baseline Post-op Hydration: Euvolemic Final Anesthesia Type: brief deep sedation for EP procedure [facility] Radiology Study observation (narrative) [facility] 11-30-20[facility] MAGNESIUMon 11-30-2024 Magnesium [Mass/Vol] 2.1 mg/dL Normal 1.8-2.6 [facility] Comment on above: Performed By: #### Addi AYALA, 36764-3 #### [facility] ([id number]) [address] [place] [address] Magnesiumon 11-30-2024 Magnesium [Mass/Vol] 2.1 mg/dL 1.8 - 2.6 mg/dL [facility] No Panel Informationon 11-30 [facility] BASIC METABOLIC PANLon 11-29 Anion gap [Moles/Vol] 9 mmol/L Normal 5-15 [facility] Comment on above: Performed By: #### Addi AYALA, 48139-3 #### [facility] ([id number]) [address] [place] [address] Calcium [Mass/Vol] 8.4 mg/dL Low 8.5-10.5 [facility] Comment on above: Performed By: #### Addi AYALA, 33547-0 #### [facility] ([id number]) [address] [place] [address] Chloride [Moles/Vol] 111 mmol/L High 98-109 [facility] Comment on above: Performed By: #### Addi AYALA, #### [facility] ([id number]) [address] [facility] [address] [place] [address] CO2 [Moles/Vol] 24 mmol/L Normal 22-32 [facility] Comment on above: Performed By: #### Addi AYALA, #### [facility] ([id number]) [address] [facility] [address] [place] [address] Creatinine [Mass/Vol] 1.10 mg/dL High 0.40-1.00 [facility] Comment on above: Result Comment: METH OD TRACEABLE TO IDMS STANDARD Performed By: #### Addi AYALA, #### [facility] ([id number]) [address] [address] GFR/1.73 sq M.predicted among non-blacks MDRD (S/P/Bld) [Vol rate/Area] 55 mL/min/{1.73_m2} Low >59 [facility] Comment on above: Result Comment: Reported eGFR is based on the CKD-EPI 2020 equation that does not use a race coefficient. Performed By: #### Addi AYALA, #### [facility] ([id number]) [address] [address] [place] [address] Glucose [Mass/Vol] 110 mg/dL High 65-99 [facility] Comment on above: Performed By: #### Addi AYALA, #### [facility] ([id number]) [address] [address] Potassium [Moles/Vol] 4.0 mmol/L Normal 3.5-5.0 [facility] Comment on above: Performed By: #### Addi AYALA, #### [facility] ([id number]) [address] [place] [address] Sodium [Moles/Vol] 144 mmol/L Normal 134-146 [facility] Comment on above: Performed By: #### B JAMIE, 87816-9 #### [facility] ([id number]) [address] [place] [address] Urea nitrogen [Mass/Vol] 25 mg/dL Normal 5-27 [facility] Comment on above: Performed By: #### Addi AYALA, 82553-8 #### [facility] ([id number]) [address] [place] [address] Basic Metabolic Panelon 11-19 Anion gap [Moles/Vol] 9 mmol/L 5 - 15 mmol/L [facility] Calcium [Mass/Vol] 8.4 mg/dL Low 8.5 - 10.5 mg/dL [facility] Chloride [Moles/Vol] 111 mmol/L High 98 - 109 mmol/L [facility] CO2 [Moles/Vol] 24 mmol/L 22 - 32 mmol/L [facility] Creatinine [Mass/Vol] 1.1 mg/dL High 0.40 - 1.00 mg/dL [facility] Comment on above: METHOD TRACEABLE TO [facility] STANDARD eGFR (CKD-EPI)non-race dependent 55 Low - PINF [facility] Comment on above: Reported eGFR is based on the CKD-EPI 2020 equation that does not use a race coefficient. Glucose [Mass/Vol] 110 mg/dL High 65 - 99 mg/dL [facility] Interpretation and review of laboratory results Abnormal [facility] Potassium [Moles/Vol] 4 mmol/L 3.5 - 5.0 mmol/L [facility] Sodium [Moles/Vol] 144 mmol/L 134 - 146 mmol/L [facility] Urea nitrogen [Mass/Vol] 25 mg/dL 5 - 27 mg/dL [facility] ECG 12 leadon 11-29-2024 TRACEMASTERVUE [facility] EKGon 11-29-2024 TRACEMASTERVUE [facility] TRACEMASTERVUE [facility] TRACEMASTERVUE [facility] Electrocardiogram, 12-leadon 11-29-2024 TRACEMASTERVUE [facility] MAGNESIUMon 11-29-2024 Magnesium [Mass/Vol] 1.9 mg/dL Normal 1.8-2.6 [facility] Comment on above: Performed By: #### Addi AYALA, #### [facility] ([id number]) [address] [place] [address] Magnesiumon 11-29-2024 Magnesium [Mass/Vol] 1.9 mg/dL 1.8 - 2.6 mg/dL [facility] No Panel Informationon 11-29 [facility] BASIC METABOLIC PANLon 11-28 Anion gap [Moles/Vol] 7 mmol/L Normal 5-15 [facility] Comment on above: Performed By: #### Addi AYALA, #### [facility] ([id number]) [address] [place] [address] Calcium [Mass/Vol] 9.2 mg/dL Normal 8.5-10.5 [facility] Comment on above: Performed By: #### Addi AYALA, #### [facility] ([id number]) [address] [place] [address] Chloride [Moles/Vol] 106 mmol/L Normal 98-109 [facility] Comment on above: Performed By: #### Addi AYALA, #### [facility] ([id number]) [address] [place] [address] CO2 [Moles/Vol] 30 mmol/L Normal 22-32 [facility] Comment on above: Performed By: #### Addi AYALA, #### [facility] ([id number]) [address] [place] [address] Creatinine [Mass/Vol] 1.14 mg/dL High 0.40-1.00 [facility] Comment on above: Result Comment: METH OD TRACEABLE TO IDMS STANDARD Performed By: #### Addi AYALA, #### [facility] ([id number]) [address] [place] [address] GFR/1.73 sq M.predicted among non-blacks MDRD (S/P/Bld) [Vol rate/Area] 52 mL/min/{1.73_m2} Low >59 [facility] Comment on above: Result Comment: Reported eGFR is based on the CKD-EPI 2020 equation that does not use a race coefficient. Performed By: #### Addi AYALA, #### [facility] ([id number]) [address] [place] [address] Glucose [Mass/Vol] 79 mg/dL Normal 65-99 [facility] Comment on above: Performed By: #### Addi AYALA, #### [facility] ([id number]) [address] [place] [address] Potassium [Moles/Vol] 3.8 mmol/L Normal 3.5-5.0 [facility] Comment on above: Performed By: #### Addi AYALA, #### [facility] ([id number]) [address] [place] [address] Sodium [Moles/Vol] 143 mmol/L Normal 134-146 [facility] Comment on above: Performed By: #### Addi AYALA, #### [facility] ([id number]) [address], [address] [place] [address] Urea nitrogen [Mass/Vol] 27 mg/dL Normal 5-27 [facility] Comment on above: Performed By: #### Addi AYALA, #### [facility] ([id number]) [address], [address] [place] [address] Basic Metabolic Panelon 02-1 0-2025 Anion gap [Moles/Vol] 7 mmol/L 5 - 15 mmol/L [facility] Calcium [Mass/Vol] 9.2 mg/dL 8.5 - 10.5 mg/dL [facility] Chloride [Moles/Vol] 106 mmol/L 98 - 109 mmol/L [facility] CO2 [Moles/Vol] 30 mmol/L 22 - 32 mmol/L [facility] Creatinine [Mass/Vol] 1.14 mg/dL High 0.40 - 1.00 mg/dL [facility] Comment on above: METHOD TRACEABLE TO [facility] STANDARD eGFR (CKD-EPI)non-race dependent 52 Low - PINF [facility] Comment on above: Reported eGFR is based on the CKD-EPI 2020 equation that does not use a race coefficient. Glucose [Mass/Vol] 79 mg/dL 65 - 99 mg/dL [facility] Interpretation and review of laboratory results Abnormal [facility] Potassium [Moles/Vol] 3.8 mmol/L 3.5 - 5.0 mmol/L [facility] Sodium [Moles/Vol] 143 mmol/L 134 - 146 mmol/L [facility] Urea nitrogen [Mass/Vol] 27 mg/dL 5 - 27 mg/dL [facility] MAGNESIUMon 11-28-2024 Magnesium [Mass/Vol] 2.0 mg/dL Normal 1.8-2.6 [facility] Comment on above: Performed By: #### [place], [address]-7 #### [facility] ([id number]) [address] [place] [address] Magnesiumon 11-28-2024 Magnesium [Mass/Vol] 2 mg/dL 1.8 - 2.6 mg/dL [facility] No Panel Informationon 11-28 [facility] BASIC METABOLIC PANLon 11-22 Anion gap [Moles/Vol] 9 mmol/L Normal 5-15 [facility] Comment on above: Performed By: #### C DAMIAN, BMP, 480[address]-2 #### [facility] ([id number]) [address], [address] [place] [address] Calcium [Mass/Vol] 9.2 mg/dL Normal 8.5-10.5 [facility] Comment on above: Performed By: #### C YISEL SALGADO, #### [facility] ([id number]) [address], [address] [place] [address] Chloride [Moles/Vol] 105 mmol/L Normal 98-109 [facility] Comment on above: Performed By: #### C YISEL SALGADO, #### [facility] ([id number]) [address], [address] [place] [address] CO2 [Moles/Vol] 27 mmol/L Normal 22-32 [facility] Comment on above: Performed By: #### YISEL Beverly BCA, #### [facility] ([id number]) [address] [place] [address] Creatinine [Mass/Vol] 1.18 mg/dL High 0.40-1.00 [facility] Comment on above: Result Comment: METH OD TRACEABLE TO [facility] STANDARD Performed By: #### C YISEL SALGADO, #### [facility] ([id number]) [address], [address] [place] [address] GFR/1.73 sq M.predicted among non-blacks MDRD (S/P/Bld) [Vol rate/Area] 50 mL/min/{1.73_m2} Low >59 [facility] Comment on above: Result Comment: Reported eGFR is based on the CKD-EPI 2020 equation that does not use a race coefficient. Performed By: #### C YISEL SALGADO, #### [facility] ([id number]) [address], [address] [place] [address] Glucose [Mass/Vol] 104 mg/dL High 65-99 [facility] Comment on above: Performed By: #### C YISEL SALGADO, #### [facility] ([id number]) [address], [address] [place] [address] Potassium [Moles/Vol] 4.7 mmol/L Normal 3.5-5.0 [facility] Comment on above: Performed By: #### C DAMIAN [facility], #### [facility] ([id number]) [address] [place] [address] Sodium [Moles/Vol] 141 mmol/L Normal 134-146 [facility] Comment on above: Performed By: #### YISEL Beverly BCA, #### [facility] ([id number]) [address], [address] [place] [address] Urea nitrogen [Mass/Vol] 28 mg/dL High 5-27 [facility] Comment on above: Performed By: #### Siria SALGADO [facility], #### [facility] ([id number]) [address] [place] [address] CBC AND AUTO DIFFon 11-22-19 25 ABSOLUTE BASOPHIL 0.1 X10E9/L Normal 0.0-0.2 [facility] Comment on above: Performed By: #### YISEL Beverly BCA, #### [facility] ([id number]) [address], [address] [place] [address] ABSOLUTE NEUTROPHIL 4.5 X10E9/L Normal 1.5-6.6 [facility] Comment on above: Performed By: #### C DAMIAN BMP, #### [facility] ([id number]) [address], [address] [place] [address] Basophils/100 WBC (Bld) 0.9 % Normal [facility] Comment on above: Performed By: #### Siria SALGADO BMP, #### [facility] ([id number]) [address] [facility] [address] [place] [address] Eosinophils (Bld) [#/Vol] 0.2 10*3/uL Normal 0.0-0.4 [facility] Comment on above: Performed By: #### YISEL Beverly BCA, #### [facility] ([id number]) [address] [facility] [address] [place] [address] Eosinophils/100 WBC (Bld) 3.5 % Normal [facility] Comment on above: Performed By: #### YISEL Beverly BCA, #### [facility] ([id number]) [address] [facility] [place] [address] Erythrocyte distribution width (RBC) [Ratio] 13.4 % Normal 11.5-15.0 [facility] Comment on above: Performed By: #### YISEL Beverly BCA, #### [facility] ([id number]) [address] [facility] [address] [place] [address] Hematocrit (Bld) [Volume fraction] 43.0 % Normal 35-47 [facility] Comment on above: Performed By: #### YISEL Beverly BCA, #### [facility] ([id number]) [address] [facility] [address] [place] [address] Hemoglobin (Bld) [Mass/Vol] 14.4 g/dL Normal 11.7-15.5 [facility] Comment on above: Performed By: #### YISEL Beverly BCA, #### [facility] ([id number]) [address] [facility] [address] [place] [address] Lymphocytes (Bld) [#/Vol] 1.5 10*3/uL Normal 1.0-3.5 [facility] Comment on above: Performed By: #### YISEL Beverly BCA, #### [facility] ([id number]) [address] [place] [address] Lymphocytes/100 WBC (Bld) 21.7 % Normal [facility] Comment on above: Performed By: #### YISEL Beverly BCA, #### [facility] ([id number]) [address], [address] [place] [address] MCH (RBC) [Entitic mass] 31.4 pg Normal 27-34 [facility] Comment on above: Performed By: #### YISEL Beverly BCA, #### [facility] ([id number]) [address] [place] [address] MCHC (RBC) [Mass/Vol] 33.5 g/dL Normal 32-36 [facility] Comment on above: Performed By: #### YISEL Beverly BCA, #### [facility] ([id number]) [address] [place] [address] MCV (RBC) [Entitic vol] 94 fL Normal 80-100 [facility] Comment on above: Performed By: #### YISEL Beverly BCA, #### [facility] ([id number]) [address] [place] [address] Monocytes (Bld) [#/Vol] 0.6 10*3/uL Normal 0-0.9 [facility] Comment on above: Performed By: #### YISEL Beverly BCA, #### [facility] ([id number]) [address] [place] [address] Monocytes/100 WBC (Bld) 8.6 % Normal [facility] Comment on above: Performed By: #### YISEL Beverly BCA, #### [facility] ([id number]) [address] [place] [address] Neutrophils/100 WBC (Bld) 65.3 % Normal [facility] Comment on above: Performed By: #### YISEL Beverly BCA, 47[address]-5 #### [facility] ([id number]) [address] [place] [address] Platelet mean volume (Bld) [Entitic vol] 8.3 fL Normal 7-12 [facility] Comment on above: Performed By: #### YISEL Beverly BCA, #### [facility] ([id number]) [address], [address] [place] [address] Platelets (Bld) [#/Vol] 213 10*3/uL Normal 150-450 [facility] Comment on above: Performed By: #### YISEL Beverly BCA, #### [facility] ([id number]) [address] [place] [address] RBC COUNT 4.58 X10E12/L Normal 3.80-5.20 [facility] Comment on above: Performed By: #### YISEL Beverly BCA, #### [facility] ([id number]) [address], [facility] [address] [place] [address] WBC (Bld) [#/Vol] 6.8 10*3/uL Normal 4.0-11.0 [facility] Comment on above: Performed By: #### YISEL Beverly BCA, #### [facility] ([id number]) [address] [place] [address] MAGNESIUMon 11-22-2024 Magnesium [Mass/Vol] 2.0 mg/dL Normal 1.8-2.6 [facility] Comment on above: Performed By: #### YISEL Beverly BCA, #### [facility] ([id number]) [address] [place] [address] POCT EKGon 10-26-2024 [facility] POCT EKGon 07-22-2024 [facility] PRBC LEUKOREDUCEDon 08-12-20 ABO and Rh group Nom (Bld) Cross Match Result Compatible Unit Blood Type O Pos Unit Number [id number] Status Information Transfused Product ID Red Blood Cells Product Code [id number] Cross Match Result Compatible Unit Blood Type O Pos Unit Number [id number] Status Information Transfused Product ID Red Blood Cells Product Code [id number] Normal [facility] Comment on above: Performed By: #### C NEELM, BMP #### [facility] [address] [place] [address] Dr. Radha Charlton BNPon 08-10-2022 Natriuretic peptide B (Bld) [Mass/Vol] 2858.0 pg/mL Critically high <=900.0 [facility] Comment on above: Performed By: #### C NAZIA, BMP #### [facility] [address] [place] [address] Dr. Radha Charlton HEMOGLOBIN AND HEMATOCRITon 08-10-2022 Hematocrit (Bld) [Volume fraction] 31.4 % Critically low 36.0-48.0 [facility] Comment on above: Performed By: #### H GBHCT #### [facility] [address] [place] [address] Dr. Radha Charlton Hemoglobin (Bld) [Mass/Vol] 9.4 g/dL Critically low 12.0-16.0 [facility] Comment on above: Performed By: #### H GBHCT #### [facility] [address] [place] [address] Dr. Radha Charlton Hematocrit (Bld) [Volume fraction] 29.1 % Critically low 36.0-48.0 [facility] Comment on above: Performed By: #### C MADM, BMP #### [facility] [address] [place] [address] Dr. Radha Charlton Hemoglobin (Bld) [Mass/Vol] 8.8 g/dL Critically low 12.0-16.0 [facility] Comment on above: Performed By: #### C MADM, BMP #### [facility] [address] [place] [address] Dr. Radha Charlton PROF 14(COMP METB)on 08-10- 022 Albumin [Mass/Vol] 2.7 g/dL Critically low 3.4-5.0 [facility] Comment on above: Performed By: #### C NAZIA, BMP #### [facility] [address] [address] [address] Radha Charlton Albumin/Globulin [Mass ratio] 0.9 {ratio} Normal [facility] Comment on above: Performed By: #### C NAZIA, BMP #### [facility] [address] [address] [address] Radha Charlton ALP [Catalytic activity/Vol] 71 U/L Normal 46-116 [facility] Comment on above: Performed By: #### C NAZIA, BMP #### [facility] [address] [address] [address] Radha Charlton ALT [Catalytic activity/Vol] 49 U/L Normal 14-59 [facility] Comment on above: Performed By: #### C NAZIA, BMP #### [facility] [address] [address] [address] Radha Charlton Anion gap [Moles/Vol] 10.0 mmol/L Normal [facility] Comment on above: Performed By: #### C NAZIA, BMP #### [facility] [address] [address] [address] Radha Charlton AST [Catalytic activity/Vol] 31 U/L Normal 15-37 [facility] Comment on above: Performed By: #### C NAZIA, BMP #### [facility] [address] [address] [address] Radha Charlton Bilirubin [Mass/Vol] 0.3 mg/dL Normal 0.2-1.0 [facility] Comment on above: Performed By: #### C NAZIA, BMP #### [facility] [address] [address] [address] Radha Charlton Calcium [Mass/Vol] 8.2 mg/dL Critically low 8.5-10.1 [facility] Comment on above: Performed By: #### C MADM, BMP #### [facility] [address] [address] [address] Radha Charlton Chloride [Moles/Vol] 111 mmol/L Critically high 98-107 [facility] Comment on above: Performed By: #### C MADM, BMP #### [facility] [address] [address] [address] Radha Charlton CO2 [Moles/Vol] 26.4 mmol/L Normal 21.0-32.0 [facility] Comment on above: Performed By: #### C MADM, BMP #### [facility] [address] [address] [address] Radha Charlton Creatinine [Mass/Vol] 1.26 mg/dL Critically high 0.55-1.02 [facility] Comment on above: Performed By: #### C MADM, BMP #### [facility] [address] [place] [address] Dr. Radha Charlton EGFR-AF POLISH 51 mL/min/1.73m2 Critically low >=60 [facility] Comment on above: Performed By: #### C MADM, BMP #### [facility] [address] [address] [address] Radha Charlton EGFR-NON AF POLISH 42 mL/min/1.73m2 Critically low >=60 [facility] Comment on above: Performed By: #### C MADM, BMP #### [facility] [address] [address] [address] Radha Charlton Globulin (S) [Mass/Vol] 2.9 g/dL Normal [facility] Comment on above: Performed By: #### C MADM, BMP #### [facility] [address] [address] [address] Radha Charlton Glucose [Mass/Vol] 114 mg/dL Critically high 74-106 [facility] Comment on above: Performed By: #### C MADM, BMP #### [facility] [address] [address] [address] Radha Charlton Potassium [Moles/Vol] 3.4 mmol/L Critically low 3.5-5.1 [facility] Comment on above: Performed By: #### C MADM, BMP #### [facility] [address] [place] [address] Dr. Radha Charlton Protein [Mass/Vol] 5.6 g/dL Critically low 6.4-8.2 [facility] Comment on above: Performed By: #### C MADM, BMP #### [facility] [address] [place] [address] Dr. Radha Charlton Sodium [Moles/Vol] 144 mmol/L Normal 136-145 [facility] Comment on above: Performed By: #### C NEELM, BMP #### [facility] [address] [place] [address] Dr. Radha Charlton Urea nitrogen [Mass/Vol] 29.0 mg/dL Critically high 7.0-18.0 [facility] Comment on above: Performed By: #### C NEELM, BMP #### [facility] [address] [place] [address] Dr. Radha Charlton Urea nitrogen/Creatini ne [Mass ratio] 23.0 mg/mg Normal [facility] Comment on above: Performed By: #### C NAZIA, BMP #### [facility] [address] [place] [address] Dr. Radha Charlton BNPon 08-09-2022 Natriuretic peptide B (Bld) [Mass/Vol] 3320.0 pg/mL Critically high <=900.0 [facility] Comment on above: Performed By: #### C NAZIA, BMP #### [facility] [address] [place] [address] Dr. Radha Charlton CARDIAC BENJI 3-6on CK [Catalytic activity/Vol] 97 U/L Normal 26-192 [facility] Comment on above: Performed By: #### C MADM, BMP #### [facility] [address] [place] [address] Dr. Radha Charlton CK.MB [Mass/Vol] 1.73 ng/mL Normal <=3.60 [facility] Comment on above: Performed By: #### C NEELM, BMP #### [facility] [address] [place] [address] Dr. Radha Charlton HSTROP 11.9 pg/mL Normal 4.0-51.3 [facility] Comment on above: Result Comment: CUT- OFF POINTS HAVE BEEN ESTABLISHED BASED ON THE FOURTH UNIVERSAL DEFINITIONS OF MYOCARDIAL INFARCTION. THE UPPER REFERENCE LIMIT (URL) OF TROPONIN, DEFINED THE 99TH PERCENTILE OF cTnI DISTRIBUTION IN A REFERENCE POPULATION, HAS BEEN CONFIRMED THE DECISION THRESHOLD FOR DC DIAGNOSIS. Performed By: #### Siria MANDUJANO, BMP #### [facility] [address] [address] [address] Radha Charlton CK [Catalytic activity/Vol] 88 U/L Normal 26-192 [facility] Comment on above: Performed By: #### Siria MANDUJANO, BMP #### [facility] [address] [place] [address] Dr. Radha Charlton CK.MB [Mass/Vol] 1.73 ng/mL Normal <=3.60 [facility] Comment on above: Performed By: #### Siria MANDUJANO, BMP #### [facility] [address] [place] [address] Dr. Radha Charlton HSTROP 14.3 pg/mL Normal 4.0-51.3 [facility] Comment on above: Result Comment: CUT- OFF POINTS HAVE BEEN ESTABLISHED BASED ON THE FOURTH UNIVERSAL DEFINITIONS OF MYOCARDIAL INFARCTION. THE UPPER REFERENCE LIMIT (URL) OF TROPONIN, DEFINED THE 99TH PERCENTILE OF cTnI DISTRIBUTION IN A REFERENCE POPULATION, HAS BEEN CONFIRMED THE DECISION THRESHOLD FOR DC DIAGNOSIS. Performed By: #### Siria MANDUJANO, BMP #### [facility] [address] [place] [address] Dr. Radha Charlton CARDIAC BENJI ADMITon 022 CK [Catalytic activity/Vol] 116 U/L Normal 26-192 [facility] Comment on above: Performed By: #### Siria MANDUJANO, BMP #### [facility] [address] [place] [address] Dr. Radha Charlton CK.MB [Mass/Vol] 2.32 ng/mL Normal <=3.60 [facility] Comment on above: Performed By: #### Siria MANDUJANO, BMP #### [facility] [address] [place] [address] Dr. Radha Charlton HSTROP 16.2 pg/mL Normal 4.0-51.3 [facility] Comment on above: Result Comment: CUT- OFF POINTS HAVE BEEN ESTABLISHED BASED ON THE FOURTH UNIVERSAL DEFINITIONS OF MYOCARDIAL INFARCTION. THE UPPER REFERENCE LIMIT (URL) OF TROPONIN, DEFINED THE 99TH PERCENTILE OF cTnI DISTRIBUTION IN A REFERENCE POPULATION, HAS BEEN CONFIRMED THE DECISION THRESHOLD FOR DC DIAGNOSIS. Performed By: #### C NAZIA, BMP #### [facility] [address] [place] [address] Dr. Radha Charlton VINICIO 95 ng/mL Critically high 9-82 [facility] Comment on above: Performed By: #### C NAZIA, BMP #### [facility] [address] [place] [address] Dr. Radha Charlton CBC AUTO DIFFon 08-09-2022 BASO # 0.1 103/ul Normal 0.0-0.1 [facility] Comment on above: Performed By: #### C NAZIA, BMP #### [facility] [address] [place] [address] Dr. Rahda Charlton Basophils/100 WBC (Bld) 0.7 % Normal 0.2-2.0 [facility] Comment on above: Performed By: #### C NAZIA, BMP #### [facility] [address] [place] [address] Dr. Radha Charlton EO # 0.3 103/ul Normal 0.0-0.7 [facility] Comment on above: Performed By: #### C NAZIA, BMP #### [facility] [address] [place] [address] Dr. Radha Charlton Eosinophils/100 WBC (Bld) 3.2 % Normal 0.9-7.0 [facility] Comment on above: Performed By: #### C NAZIA, BMP #### [facility] [address] [place] [address] Dr. Radha Charlton Erythrocyte distribution width (RBC) [Ratio] 19.4 % Critically high 11.0-15.0 [facility] Comment on above: Performed By: #### C NAZIA, BMP #### [facility] [address] [address] [address] Radha Charlton Hematocrit (Bld) [Volume fraction] 25.1 % Critically low 36.0-48.0 [facility] Comment on above: Performed By: #### C MADM, BMP #### [facility] [address] [place] [address] Dr. Radha Charlton Hemoglobin (Bld) [Mass/Vol] 7.0 g/dL Critically low 12.0-16.0 [facility] Comment on above: Performed By: #### C MADM, BMP #### [facility] [address] [place] [address] Dr. Radha Charlton IG # 0.05 10e3/ul Critically high 0.00-0.03 [facility] Comment on above: Performed By: #### C MADM, BMP #### [facility] [address] [place] [address] Dr. Radha Charlton IG % 0.5 % Normal 0.0-0.5 [facility] Comment on above: Performed By: #### C MADM, BMP #### [facility] [address] [place] [address] Dr. Radha Charlton LYMPH # 2.0 103/ul Normal 1.2-3.8 [facility] Comment on above: Performed By: #### C MADM, BMP #### [facility] [address] [address] [address] Radha Charlton Lymphocytes/100 WBC (Bld) 18.9 % Critically low 20.5-60.0 [facility] Comment on above: Performed By: #### C MADM, BMP #### [facility] [address] [place] [address] Dr. Radha Charlton MANUAL DIFF REQ NO Normal [facility] Comment on above: Performed By: #### C MADM, BMP #### [facility] [address] [place] [address] Dr. Radha Charlton MCH (RBC) [Entitic mass] 21.6 pg Critically low 26.7-34.0 [facility] Comment on above: Performed By: #### C NAZIA, BMP #### [facility] [address] [place] [address] Dr. Radha Charlton MCHC (RBC) [Mass/Vol] 27.9 g/dL Critically low 29.9-35.2 [facility] Comment on above: Performed By: #### C NAZIA, BMP #### [facility] [address] [place] [address] Dr. Radha Charlton MCV (RBC) [Entitic vol] 77.5 fL Critically low 81.0-99.0 [facility] Comment on above: Performed By: #### C NAZIA, BMP #### [facility] [address] [place] [address] Dr. Radha Charlton MONO # 1.0 103/ul Critically high 0.3-0.8 [facility] Comment on above: Performed By: #### C NAZIA, BMP #### [facility] [address] [place] [address] Dr. Radha Charlton Monocytes/100 WBC (Bld) 9.5 % Normal 1.7-12.0 [facility] Comment on above: Performed By: #### C NAZIA, BMP #### [facility] [address] [place] [address] Dr. Radha Charlton NEUT # 7.0 103/ul Critically high 1.4-6.5 [facility] Comment on above: Performed By: #### C NAZIA, BMP #### [facility] [address] [place] [address] Dr. Radha Charlton Neutrophils/100 WBC (Bld) 67.2 % Normal 43.0-75.0 [facility] Comment on above: Performed By: #### C NAZIA, BMP #### [facility] [address] [place] [address] Dr. Radha Charlton Platelet mean volume (Bld) [Entitic vol] 10.0 fL Normal 9.5-13.5 [facility] Comment on above: Performed By: #### C NAZIA, BMP #### [facility] [address] [place] [address] [address] [address] Radha Charlton PLT 308 103/ul Normal 150-450 [facility] Comment on above: Performed By: #### C NAZIA, YISEL #### [facility] [address] [place], [place] [address] Dr. Radha Charlton RBC 3.24 106/ul Critically low 4.20-5.40 [facility] Comment on above: Performed By: #### C NAZIA, YISEL #### [facility] [address] [place], [place] [address] Dr. Radha Charlton WBC 10.4 103/ul Normal 4.0-11.0 [facility] Comment on above: Performed By: #### C NAZIA, YISEL #### [facility] [address] [place], [place] [address] Dr. Radha Charlton CTA CHEST WO W [...] BEAN SCHAFFER Date: 2022-08-09 03:39 Normal [facility] Covid-19 PCR (CVDTB)on 07-20 SARS-CoV-2 (COVID-19) RNA EMILIA+probe Ql (Unsp spec) Not detected Normal NOT DETECTED [facility] Comment on above: Result Comment: When diagnostic [...] for this test is supported by the [place] of Health and Human Service's declaration that [...] longer be used). Performed By: #### C NAZIA, YISEL #### [facility] [address] [place] [address] Dr. Radha Charlton D-DIMERon 08-09-2022 D-DIMER 1.36 mg/L FEU Critically high <=0.59 [facility] Comment on above: Performed By: #### C NAZIA, BMP #### [facility] [address] [place] [address] Dr. Radha Charlton D-DIMER COMMENTS SEE BELOW Normal The [facility] Comment on above: Result Comment: [...] and generalized hospitalization. Performed By: #### C NAZIA, BMP #### [facility] [address] [place] [address] Dr. Radha Charlton FREE T3on 08-09-2022 FREE T3 1.79 pg/mlL Critically low 2.18-3.98 [facility] Comment on above: Performed By: #### C NAZIA, BMP #### [facility] [address] [place] [address] Dr. Radha Charlton FREE T4on 08-09-2022 Free T4 [Mass/Vol] 1.43 ng/dL Normal 0.76-1.46 [facility] Comment on above: Performed By: #### F T4, FETIBC, B12FOL #### [facility] [address] [place] [address] Dr. Radha Charlton HEMOGLOBIN AND HEMATOCRITon 08-09-2022 Hematocrit (Bld) [Volume fraction] 29.5 % Critically low 36.0-48.0 [facility] Comment on above: Performed By: #### H GBHCT #### [facility] [address] [address] [address] Radha Charlton Hemoglobin (Bld) [Mass/Vol] 9.0 g/dL Critically low 12.0-16.0 [facility] Comment on above: Performed By: #### H GBHCT #### [facility] [address] [place] [address] Dr. Radha Charlton Hematocrit (Bld) [Volume fraction] 28.7 % Critically low 36.0-48.0 [facility] Comment on above: Performed By: #### H GBHCT #### [facility] [address] [place] [address] Dr. Radha Charlton Hemoglobin (Bld) [Mass/Vol] 8.7 g/dL Critically low 12.0-16.0 [facility] Comment on above: Performed By: #### H GBHCT #### [facility] [address] [place] [address] Dr. Radha Charlton INFLUENZA A AND B AGon 08-09 INFLUENZA A AG Negative Normal NEGATIVE SEE COMMENT [facility] Comment on above: Performed By: #### I NFLUAB #### [facility] [address] [place] [address] Dr. Radha Charlton INFLUENZA B AG Negative Normal NEGATIVE SEE COMMENT [facility] Comment on above: Performed By: #### I NFLUAB #### [facility] [address] [place] [address] Dr. Radha Charlton INTERNAL CONTROLS Within Normal Limits Normal Wi thin Normal Limits [facility] Comment on above: Performed By: #### I NFLUAB #### [facility] [address] [place] [address] Dr. Radha Charlton IRON AND TIBCon 08-09-2022 % SATURATION 3.5 % Normal [facility] Comment on above: Performed By: #### F T4, FETIBC, B12FOL #### [facility] [address] [place] [address] Dr. Radha Charlton Iron [Mass/Vol] 16.0 ug/dL Critically low 50.0-170.0 [facility] Comment on above: Performed By: #### F T4, FETIBC, B12FOL #### [facility] [address] [place] [address] Dr. Radha Charlton TIBC DIRECT 463.0 ug/dL Critically high 250.0-450. 0 [facility] Comment on above: Performed By: #### F T4, FETIBC, B12FOL #### [facility] [address] [place] [address] Dr. Radha Charlton OCC BLD IMMUNO SCREENon 07-20 OCCULT BLOOD Positive Abnormal NEGATIVE [facility] Comment on above: Performed By: #### O BSCRN #### [facility] [address] [place] [address] Dr. Radha Charlton PROF CHEM 8 (BAS METB)on Anion gap [Moles/Vol] 12.4 mmol/L Normal [facility] Comment on above: Performed By: #### C NEELM, BMP #### [facility] [address] [place] [address] Dr. Radha Charlton Calcium [Mass/Vol] 8.0 mg/dL Critically low 8.5-10.1 [facility] Comment on above: Performed By: #### C MADM, BMP #### [facility] [address] [place] [address] Dr. Radha Charlton Chloride [Moles/Vol] 109 mmol/L Critically high 98-107 [facility] Comment on above: Performed By: #### C MADM, BMP #### [facility] [address] [place] [address] Dr. Radha Charlton CO2 [Moles/Vol] 22.4 mmol/L Normal 21.0-32.0 [facility] Comment on above: Performed By: #### C MADM, BMP #### [facility] [address] [place] [address] Dr. Radha Charlton Creatinine [Mass/Vol] 1.62 mg/dL Critically high 0.55-1.02 [facility] Comment on above: Performed By: #### C MADM, BMP #### [facility] [address] [address] [address] Radha Charlton EGFR-AF POLISH 39 mL/min/1.73m2 Critically low >=60 [facility] Comment on above: Performed By: #### C MADM, BMP #### [facility] [address] [address] [address] Radha Charlton EGFR-NON AF POLISH 32 mL/min/1.73m2 Critically low >=60 [facility] Comment on above: Performed By: #### C MADM, BMP #### [facility] [address] [address] [address] Radha Charlton Glucose [Mass/Vol] 124 mg/dL Critically high 74-106 [facility] Comment on above: Performed By: #### C MADM, BMP #### [facility] [address] [address] [address] Radha Charlton Potassium [Moles/Vol] 3.8 mmol/L Normal 3.5-5.1 [facility] Comment on above: Performed By: #### C MADM, BMP #### [facility] [address] [address] [address] Radha Charlton Sodium [Moles/Vol] 140 mmol/L Normal 136-145 [facility] Comment on above: Performed By: #### C MADM, BMP #### [facility] [address] [address] [address] Radha Charlton Urea nitrogen [Mass/Vol] 34.0 mg/dL Critically high 7.0-18.0 [facility] Comment on above: Performed By: #### C MADM, BMP #### [facility] [address] [address] [address] Radha Charlton Urea nitrogen/Creatini ne [Mass ratio] 21.0 mg/mg Normal [facility] Comment on above: Performed By: #### C MADM, BMP #### [facility] [address] [address] [address] Radha Charlton TSHon 08-09-2022 TSH 0.259 uIU/mL Critically low 0.358-3.74 0 [facility] Comment on above: Performed By: #### C MADM, BMP #### [facility] [address] [address] [address] Radha Charlton TYPE AND SCREENon 08-09-2022 TYPE AND SCREEN Negative Normal [facility] Comment on above: Performed By: #### C MADM, BMP #### [facility] [address] [address] [address] Radha Charlton VIT B12 AND FOLATEon 022 Cobalamin (Vitamin B12) [Mass/Vol] 459.0 pg/mL Normal 193.0-986. 0 [facility] Comment on above: Performed By: #### F T4, FETIBC, B12FOL #### [facility] [address] [address] [address] Radha Charlton FOLATE 10.20 ng/mL Normal 8.60-58.90 [facility] Comment on above: Performed By: #### F T4, FETIBC, B12FOL #### [facility] [address] [address] [address] Radha Charlton XR CHEST 1 Von [...] by: BEAN SCHAFFER Date: 2022-08-09 02:20 Normal [facility] Consent for COVID Vaccineon 04-17-2021 SARS-CoV-2 (COVID-19) RNA EMILIA+probe Ql (Unsp spec) [id number]#1.00CD:127 Normal [facility] Coding Summary.on 01-07-2021 Coding Summary. CODING DATE: 021 FINAL [facility] STATUS: PAYOR: Praveen APC DESCRIPTION 1492 [employer] - Level 1B ($11-$20) ADMIT [...] Schaffer Date Saved: 01/07/2021 09:23 am Normal [facility] Consent for COVID Vaccineon 01-03-2021 SARS-CoV-2 (COVID-19) RNA EMILIA+probe Ql (Unsp spec) [id number]#1.00CD:127 Normal [facility] Consent for Treatmenton 12-17 Consent for Treatment [id number]#1.00CD:127 Normal [facility] Cardiovascular Lab Reporton 12-25-2017 Cardiovascular Lab Report [facility] Patient Name: Abi Victoria [facility] MR #: [id number] Physician: Oj Luna M.D.Medicine Service Date: 12/24/2017Division of Birthdate: 6Cardiology Room #: 3AB [id number] [address] [place], [place] [address]Mtpxh Fax Cardiovascular Laboratory ReportINDICATION: Abi Victoria is a 62-year-old lady with history of WPW statuspost surgical ablation in 1989. She has history of atrial flutterdiagnosed about 1 year ago and has been maintained on Eliquis. She [facility]ad[facility] with symptoms of unstableangina and continuous chest pain. Her cardiac enzymes were negative. Shewas found to be in atrial flutter with uncontrolled ventricular response.Her echocardiogram showed preserved ventricular function with moderatemitral and tricuspid regurgitation and dilated atria. She was transferredto our center for further management and referred for cardiaccatheterization.KAZ JUAREZ PERFORMED: Bilateral selective coronary angiography from theright radial access.METHOD: Procedure was explained to the patient with risks and benefits.She signed informed consent. She was brought to equipment operator/laborer in a fastingstate. The right wrist area was prepped and draped in usual fashion.Using micropuncture technique, the right radial artery was accessed. A6-Tanzanian x 11 cm Hydrophilic sheath was advanced. Verapamil was giventhrough the sheath and heparin was administered intravenously. James'stest was favorable on the right. Bilateral selective coronary angiographywas then performed using a 6-Tanzanian Sree radial diagnostic catheter forengagement of the [...] 12/24/2017/02:58 P/Oj Rocha M.D.Date Trans: 12/25/2017 04:21 A/Oliva_JN:[id number]: Lacey Marion M.D. [address] [facility] [address] Oj Rocha M.D. Heart Failure/ Transplant Mailstop [address] [facility] [address] Normal [facility] Discharge Summaryon 12-26-19 18 Discharge Summary MR#: [id number] [facility] Pt. Name: Abi Victoria Admitted: 12/23/2017 Discharged: 12/24/2017 Date of : 1955 Physician: Blake Mebmreno M.D. DISCHARGE SUMMARYPRIMARY DIAGNOSIS: Noncardiac chest pain.SECONDARY DIAGNOSES:1. Atrial flutter.2. Dpejl-Xuyypkwxs-Fiihn syndrome status post ablation in the .3. Hypothyroidism.HISTORY OF PRESENT ILLNESS AND HOSPITAL COURSE: The patient is [id number] female with a past medical history as noted above, who [facility] after she presented with acuteretrosternal chest pain, [...] personal documentation from me. Date Dict: 12/24/2017/04:20 P/SARA Plummerate Trans: 12/25/2017 12:19 A/Oliva_JN:[id number]: Lacey Marion M.D. [address] [facility] [address] Oj Rocha M.D. Heart Failure/ Transplant Mailstop [address] [facility] [address] Normal [facility] APTTon 12-24-2017 aPTT 72.7 s Critically high 25.0-35.0 [facility] Comment on above: Order Comment: No: D [...] THE PRESENCEOF HEPARIN. Performed By: #### 3 5550, 43300, 10152 ####[facility] BASIC METABOLIC PANELon Calcium 8.1 mg/dL Low 8.6-10.3 [facility] Comment on above: Order Comment: No: D o not add to previous draw Performed By: #### 3 5200, 90256, 19977 ####[facility] [place] [address], [place] Chloride 115 mmol/L High 98-107 [facility] Comment on above: Order Comment: No: D o not add to previous draw Performed By: #### 3 5200, 46707, 68116 ####[facility] [place] [address], [place] CO2 25 mmol/L Normal 21-31 [facility] Comment on above: Order Comment: No: D o not add to previous draw Performed By: #### 3 5200, 89064, 78218 ####[facility] [place] [address], [place] Creatinine 0.78 mg/dL Normal 0.60-1.20 [facility] Comment on above: Order Comment: No: D o not add to previous draw Performed By: #### 3 5200, 93909, 55211 ####[facility] [place] [address], [place] eGFR (black) mL/min/{1.73_m2} Normal >60 The [facility] Comment on above: Order Comment: No: D o not add to previous draw Performed By: #### 3 5200, 31364, 98923 ####[facility] [place] [address], [place] eGFR (non-black) mL/min/{1.73_m2} Normal >60 [facility] Comment on above: Order Comment: No: D o not add to previous draw Performed By: #### 3 5200, 12215, 84575 ####[facility] [place] [address], [place] Glucose mass conc 87 mg/dL Normal 70-100 [facility] Comment on above: Order Comment: No: D o not add to previous draw Performed By: #### 3 5200, 35655, 83752 ####[facility]3000 [facility].[address] Potassium molar conc 4.3 mmol/L Normal 3.5-5.1 [facility] Comment on above: Order Comment: No: D o not add to previous draw Performed By: #### 3 5200, 10049, 06837 ####[facility] Sodium 142 mmol/L Normal 136-145 [facility] Comment on above: Order Comment: No: D o not add to previous draw Performed By: #### 3 5200, 526[address], [address] ####[address] [place] [address] Urea nitrogen 19 mg/dL Normal 7-25 The [facility] Comment on above: Order Comment: No: D o not add to previous draw Performed By: #### 3 5200, 34911, 58280 ####[address] CBC W/DIFFon 12-24-2017 ABS BASOPHILS 0.1 10*3/uL Normal 0.0-0.2 The [facility] Comment on above: Order Comment: No: D o not add to previous draw Performed By: #### 5 0103 ####[facility]3000 [facility].[address] ABS IMM GRANS 0.0 10*3/uL Normal 0.0-0.2 [facility] Comment on above: Order Comment: No: D o not add to previous draw Performed By: #### 5 0103 ####[address] Basophils Auto #/vol (Bld) 0.6 % Normal 0.0-1.0 The [facility] Comment on above: Order Comment: No: D o not add to previous draw Performed By: #### 5 0103 ####[facility] [place] [address], [facility] Eosinophils 0.4 10*3/uL Normal 0.0-0.5 The [facility] Comment on above: Order Comment: No: D o not add to previous draw Performed By: #### 5 0103 ####[facility] [place] [address], [facility] Eosinophils/100 leukocytes 3.6 % Normal 0.0-6.0 [facility] Comment on above: Order Comment: No: D o not add to previous draw Performed By: #### 5 0103 ####[facility] [facility] [place] [place] [address], [facility] Erythrocyte distribution width Auto Ratio (RBC) 13.3 % Normal 11.5-15.0 [facility] Comment on above: Order Comment: No: D o not add to previous draw Performed By: #### 5 0103 ####[facility] [place] [address], [facility] Erythrocytes (RBC) 0 % Normal 0-0 [facility] Comment on above: Order Comment: No: D o not add to previous draw Performed By: #### 5 0103 ####[facility] [facility] [place] [place] [address], [facility] Erythrocytes (RBC) 3.54 10*6/uL Low 3.80-5.00 [facility] Comment on above: Order Comment: No: D o not add to previous draw Performed By: #### 5 0103 ####[facility] [place] [address], [facility] Hematocrit (HCT) 32.7 % Low 36.0-45.0 The [facility] Comment on above: Order Comment: No: D o not add to previous draw Performed By: #### 5 0103 ####[facility] Hemoglobin mass conc (Bld) 10.4 g/dL Low 12.0-15.0 [facility] Comment on above: Order Comment: No: D o not add to previous draw Performed By: #### 5 0103 ####[facility] [facility] [place] [place] [address], [facility] IMMATURE GRANS 0.3 % Normal 0.0-1.0 [facility] Comment on above: Order Comment: No: D o not add to previous draw Performed By: #### 5 0103 ####[facility] [place] [address] Lymphocytes 2.1 10*3/uL Normal 1.2-4.0 The [facility] Comment on above: Order Comment: No: D o not add to previous draw Performed By: #### 5 0103 ####[facility]3000 [facility].[address] Lymphocytes/100 leukocytes 20.8 % Normal 20.0-45.0 [facility] Comment on above: Order Comment: No: D o not add to previous draw Performed By: #### 5 3 ####[facility]3000 [facility].[address] MCH 29.4 pg Normal 27.0-33.0 [facility] Comment on above: Order Comment: No: D o not add to previous draw Performed By: #### 5 0103 ####[facility] [facility].[address] MCHC mass conc (RBC) 31.8 g/dL Low 32.0-35.0 [facility] Comment on above: Order Comment: No: D o not add to previous draw Performed By: #### 5 3 ####[facility] [facility] [place] [place] [address], [facility] MCV 92.4 fL Normal 82.0-98.0 [facility] Comment on above: Order Comment: No: D o not add to previous draw Performed By: #### 5 0103 ####[facility] [place] [address], [facility] Monocytes 0.6 10*3/uL Normal 0.1-1.0 The [facility] Comment on above: Order Comment: No: D o not add to previous draw Performed By: #### 5 0103 ####[facility] [facility] [place] [place] [address], [facility] MONOS 5.6 % Normal 5.0-12.0 [facility] Comment on above: Order Comment: No: D o not add to previous draw Performed By: #### 5 0103 ####[facility] [facility] [place] [place] [address], [facility] Neutrophils 6.9 10*3/uL Normal 1.6-7.6 The [facility] Comment on above: Order Comment: No: D o not add to previous draw Performed By: #### 5 0103 ####[facility] [facility] [place] [place] [address], [facility] Neutrophils/100 leukocytes 69.1 % Normal 40.0-72.0 [facility] Comment on above: Order Comment: No: D o not add to previous draw Performed By: #### 5 0103 ####[facility] [facility] [place] [place] [address], [facility] PLAT CNT 228 10*3/uL Normal 150-400 The [facility] Comment on above: Order Comment: No: D o not add to previous draw Performed By: #### 5 0103 ####[facility] [facility] [place] [place] [address], [facility] WBC (Leukocytes) 10.0 10*3/uL Normal 4.0-10.6 The [facility] Comment on above: Order Comment: No: D o not add to previous draw Performed By: #### 5 0103 ####[facility] [place] [address], [facility] LIVER BATTERYon 12-24-2017 Alanine aminotransferase (ALT) 27 U/L Normal 7-52 [facility] Comment on above: Order Comment: No: D o not add to previous draw Performed By: #### 3 5200, 13113, 40612 ####[facility] [place] [address], [facility] Albumin 2.9 g/dL Low 3.5-5.7 [facility] Comment on above: Order Comment: No: D o not add to previous draw Performed By: #### 3 5200, 70797, 12674 ####[facility] [place] [address], [facility] ALKALINE PHOSPH 41 IU/L Normal 34-104 The [facility] Comment on above: Order Comment: No: D o not add to previous draw Performed By: #### 3 5200, 56763, 72138 ####[facility] [place] [address], [facility] Aspartate aminotransferase (AST) 15 U/L Normal 13-39 [facility] Comment on above: Order Comment: No: D o not add to previous draw Performed By: #### 3 5200, 86042, 25680 ####[facility] [place] [address], [place] Bilirubin (direct) 0.1 mg/dL Normal 0.0-0.2 [facility] Comment on above: Order Comment: No: D o not add to previous draw Performed By: #### 3 5200, 47695, 20021 ####[facility] [place] [address], [place] Bilirubin (total) 0.4 mg/dL Normal 0.3-1.0 The [facility] Comment on above: Order Comment: No: D o not add to previous draw Performed By: #### 3 5200, 05975, 67951 ####[facility] Protein 4.8 g/dL Low 6.0-8.3 [facility] Comment on above: Order Comment: No: D o not add to previous draw Performed By: #### 3 5200, 93653, 59130 ####[facility] MAGNESIUM BLOODon 12-24-2017 Magnesium 1.9 mg/dL Normal 1.9-2.7 [facility] Comment on above: Order Comment: No: D o not add to previous draw Performed By: #### 3 5200, 44072, 65907 ####[facility]3000 [facility].[address] PROTHROMBIN TIMEon 8 INR Coag RelTime (PPP) 1.03 {INR} Normal 0.91-1.16 [facility] Comment on above: Order Comment: No: D [...] OF ACTION, CLINICALEFFECTIVENESS, AND OPTIMAL THERAPEUTIC RANGE. [id number]. Performed By: #### 3 5200, 09819, 18600 ####[facility]3000 [facility].[address] Prothrombin time (PT) Coag time (PPP) 13.5 s Normal 12.3-14.8 [facility] Comment on above: Order Comment: No: D o not add to previous draw Result Comment: ALL RESULTS MUST BE INTERPRETED WITH RESPECT TO BLOOD DRAWING ARTIFACTOR DILUTION ERROR OF ANTICOAGULANT AT THE TIME OF SAMPLING. Performed By: #### 3 5200, 33377, 34943 ####[facility]3000 [facility].[address] TROPONIN-Ion 12-24-2017 Troponin I.cardiac mass conc 0.00 ng/mL Normal 0.00-0.04 [facility] Comment on above: Order Comment: No: D o not add to previous draw Result Comment: REFE RENCE RANGES: 0.00 - 0.14 ng/ml NEGATIVE 0.15 - 0.25 ng/ml INDETERMINATE > 0.25 ng/ml INDICATIVE OF AN M.I. Performed By: #### 3 5200 ####[facility]3000 [facility].[address] TSHon 12-24-2017 Thyroid stimulating hormone (TSH) 0.57 MICRO-IU/ML Normal 0.34-5.60 [facility] Comment on above: Order Comment: No: D o not add to previous draw Performed By: #### 3 5200, 16455, 66725 ####[facility]3000 [facility].[address] UFH HEPARIN ASSAYon 12-25-19 18 UNFRACTIONATED HEPARIN 0.43 IU/mL Normal 0.30-0.70 [facility] Comment on above: Result Comment: Do roxaban and Apixaban will interfere with the anti Xa assay used tomonitor UFH and LMWH. Performed By: #### 3 0477, 41125, 47531 ####[facility]3000 [facility].[address] UNFRACTIONATED HEPARIN 0.56 IU/mL Normal 0.30-0.70 [facility] Comment on above: Result Comment: Do roxaban and Apixaban will interfere with the anti Xa assay used tomonitor UFH and LMWH. Performed By: #### 3 0477 ####[facility]3000 [facility].[address] BASIC METABOLIC PANELon 03-0 Calcium 8.0 mg/dL Low 8.6-10.3 [facility] Comment on above: Order Comment: No: D o not add to previous draw Performed By: #### 3 5200, 07705, 55499 ####[facility] [facility] [facility].[address] Chloride 117 mmol/L High 98-107 [facility] Comment on above: Order Comment: No: D o not add to previous draw Performed By: #### 3 5200, [id number], 51608 ####[facility]3000 [facility].[address] CO2 27 mmol/L Normal 21-31 [facility] Comment on above: Order Comment: No: D o not add to previous draw Performed By: #### 3 5200, 78274, 46478 ####[facility]3000 [facility].[address] Creatinine 0.78 mg/dL Normal 0.60-1.20 [facility] Comment on above: Order Comment: No: D o not add to previous draw Performed By: #### 3 5200, 34322, 14371 ####[facility]3000 [facility].[address] eGFR (black) mL/min/{1.73_m2} Normal >60 The [facility] Comment on above: Order Comment: No: D o not add to previous draw Performed By: #### 3 5200, 43151, 68014 ####[facility] [place] [address], [facility] eGFR (non-black) mL/min/{1.73_m2} Normal >60 Th [facility] Comment on above: Order Comment: No: D o not add to previous draw Performed By: #### 3 5200, 96013, 98775 ####[facility] [place] [address], [facility] Glucose mass conc 93 mg/dL Normal 70-100 [facility] Comment on above: Order Comment: No: D o not add to previous draw Performed By: #### 3 5200, 44684, 86533 ####[facility] [place] [address], [facility] Potassium molar conc 4.2 mmol/L Normal 3.5-5.1 [facility] Comment on above: Order Comment: No: D o not add to previous draw Performed By: #### 3 5200, 78452, 19986 ####[facility] [place] [address], [facility] Sodium 144 mmol/L Normal 136-145 [facility] Comment on above: Order Comment: No: D o not add to previous draw Performed By: #### 3 0, 63589, 27123 ####[facility] [place] [address], [facility] Urea nitrogen 15 mg/dL Normal 7-25 The [facility] Comment on above: Order Comment: No: D o not add to previous draw Performed By: #### 3 5200, 46896, 72427 ####[facility] [place] [address], [facility] CBC COMPLETE BLOOD COUNTon 0 - Erythrocyte distribution width Auto Ratio (RBC) 13.4 % Normal 11.5-15.0 [facility] Comment on above: Order Comment: No: D o not add to previous draw Performed By: #### 5 0608 ####[address] Erythrocytes (RBC) 3.58 10*6/uL Low 3.80-5.00 [facility] Comment on above: Order Comment: No: D o not add to previous draw Performed By: #### 5 0608 ####[facility] Erythrocytes (RBC) 0 % Normal 0-0 [facility] Comment on above: Order Comment: No: D o not add to previous draw Performed By: #### 5 0608 ####[address] Hematocrit (HCT) 33.6 % Low 36.0-45.0 The [facility] Comment on above: Order Comment: No: D o not add to previous draw Performed By: #### 5 0608 ####[address] Hemoglobin mass conc (Bld) 10.4 g/dL Low 12.0-15.0 [facility] Comment on above: Order Comment: No: D o not add to previous draw Performed By: #### 5 0608 ####[address] MCH 29.1 pg Normal 27.0-33.0 [facility] Comment on above: Order Comment: No: D o not add to previous draw Performed By: #### 5 0608 ####[address] MCHC mass conc (RBC) 31.0 g/dL Low 32.0-35.0 [facility] Comment on above: Order Comment: No: D o not add to previous draw Performed By: #### 5 0608 ####[facility]3000 [facility].[address] MCV 93.9 fL Normal 82.0-98.0 [facility] Comment on above: Order Comment: No: D o not add to previous draw Performed By: #### 5 0608 ####[facility]3000 [facility].[address] PLAT CNT 249 10*3/uL Normal 150-400 The [facility] Comment on above: Order Comment: No: D o not add to previous draw Performed By: #### 5 0608 ####[address] WBC (Leukocytes) 5.9 10*3/uL Normal 4.0-10.6 The [facility] Comment on above: Order Comment: No: D o not add to previous draw Performed By: #### 5 0608 ####[facility]3000 [facility].[address] CPK-MB PROFILEon 12-23-2017 CKMB 3.6 ng/mL Normal 0.0-5.0 [facility] Comment on above: Order Comment: No: D o not add to previous draw Result Comment: IF T OTAL CK <200 U/L AND: 1. CKMB IS 5-10 NG/ML----BORDERLINE 2. CKMB IS >10 NG/ML----INDICATIVE OF DC OR IF TOTAL CK >200 U/L AND CKMB INDEX >1.9----INDICATIVE OF DC Performed By: #### 3 5200, 35935, 01539 ####[facility]3000 [facility].[address] CKMB 4.9 ng/mL Critically high 0.0-1.9 The [facility] Comment on above: Order Comment: No: D o not add to previous draw Performed By: #### 3 5200, 67215, 62390 ####[facility]3000 [facility].[address] Creatine kinase (CK) 73 U/L Normal 30-223 [facility] Comment on above: Order Comment: No: D o not add to previous draw Performed By: #### 3 5200, 96334, 09588 ####[facility]3000 [facility].[address] TROPONIN-Ion 12-23-2017 Troponin I.cardiac mass conc 0.00 ng/mL Normal 0.00-0.04 [facility] Comment on above: Order Comment: No: D o not add to previous draw Result Comment: REFE RENCE RANGES: 0.00 - 0.14 ng/ml NEGATIVE 0.15 - 0.25 ng/ml INDETERMINATE > 0.25 ng/ml INDICATIVE OF AN M.I. Performed By: #### 3 5200 ####[facility] Troponin I.cardiac mass conc 0.00 ng/mL Normal 0.00-0.04 [facility] Comment on above: Order Comment: No: D o not add to previous draw Result Comment: REFE RENCE RANGES: 0.00 - 0.14 ng/ml NEGATIVE 0.15 - 0.25 ng/ml INDETERMINATE > 0.25 ng/ml INDICATIVE OF AN M.I. Performed By: #### 3 5200, 60021, 61200 ####[facility]3000 [facility].[address] UFH HEPARIN ASSAYon 12-24-19 18 UNFRACTIONATED HEPARIN 0.52 IU/mL Normal 0.30-0.70 [facility] Comment on above: Result Comment: Trimble roxaban and Apixaban will interfere with the anti Xa assay used tomonitor UFH and LMWH. Performed By: #### 3 5857 ####[facility]3000 [facility].[address] Vital Signs Date Time Vital Sign Value Performing Clinician Faci lity 12-01-2024 10:00-0500 Heart rate 74 /min Balwinder Plascencia MD Work Phone: [facility] [employer] [facility] 12-01-2024 08:49-0500 Body temperature 97.7 [degF] Balwinder Plascencia MD Work Phone: [facility] 12-01-2024 08:49-0500 Diastolic blood pressure 80 mm[Hg] Balwinder Plascencia MD Work Phone: [facility] 12-01-2024 08:49-0500 SaO2% (BldA) [Mass fraction] 98 % Balwinder Plascencia MD Work Phone: [facility] [employer] [facility] 12-01-2024 08:49-0500 Systolic blood pressure 123 mm[Hg] Balwinder Plascencia MD Work Phone: [facility] 12-01-2024 08:00-0500 Respiratory rate 16 /min Balwinder Plascencia MD Work Phone: [facility] 11-30-2024 23:21-0500 Body mass index (BMI) [Ratio] 24.43 kg/m2 Balwidner Plascencia MD Work Phone: [facility] [employer] [facility] 11-30-2024 23:21-0500 Body weight 66.6 kg Balwinder Plascencia MD Work Phone: [facility] 11-28-2024 20:16-0500 Body height 165.1 cm Balwinder Plascencia MD Work Phone: [facility] 10-26-2024 10:30-0500 Body height 165.1 cm Balwinder Plascencia MD Work Phone: [facility] 10-26-2024 10:30-0500 Body mass index (BMI) [Ratio] 24.89 kg/m2 Balwinder Plascencia MD Work Phone: [facility] 10-26-2024 10:30-0500 Body weight 67.86 kg Balwinder Plascencia MD Work Phone: [facility] 10-26-2024 10:30-0500 Diastolic blood pressure 82 mm[Hg] Balwinder Plascencia MD Work Phone: [facility] 10-26-2024 10:30-0500 Heart rate 63 /min Balwinder Plascencia MD Work Phone: [facility] 10-26-2024 10:30-0500 SaO2% (BldA) [Mass fraction] 93 % Balwinder Plascencia MD Work Phone: [facility] 10-26-2024 10:30-0500 Systolic blood pressure 104 mm[Hg] [facility]-22-20[facility] 12:00-0400 Body height 165.1 cm Adryan Mercedes TEASEL GIG OPERATOR-LINEN MANAGER [facility] 07-22-2024 12:00-0400 Body mass index (BMI) [Ratio] 23.6 kg/m2 Adryan Mercedes TEASEL GIG OPERATOR-LINEN MANAGER Work Phone: [facility] 07-22-2024 12:00-0400 Body weight 64.32 kg Adryan Mercedes TEASEL GIG OPERATOR-LINEN MANAGER [facility] 07-22-2024 12:00-0400 Diastolic blood pressure 76 mm[Hg] Adryan Mercedes TEASEL GIG OPERATOR-LINEN MANAGER Work Phone: [facility] 07-22-2024 12:00-0400 Heart rate 113 /min Adryan Mercedes TEASEL GIG OPERATOR-LINEN MANAGER [facility] 07-22-2024 12:00-0400 Systolic blood pressure 114 mm[Hg] Adryan Mercedes TEASEL GIG OPERATOR-LINEN MANAGER [facility] En[facility]ters Encounter Date Encounter Type Care Provider Facility Start: 12-26-2024 End: 12-26-2024 Telephone encounter Luana Owens MD Work Phone: [facility] Start: 12-10-2024 End: 12-10-2024 Emergency department patient visit [facility] Start: 12-01-2024 End: 12-20-2024 Telephone encounter Balwinder Plascencia MD Work Phone: [facility] Comment on above: s/p cardioversion Start: 11-28-2024 End: 12-01-2024 Evaluation and management of inpatient Balwinder Plascencia MD Work Phone: [facility] Acute Start: 11-22-2024 End: 11-22-2024 ambulatory BALWINDER PLASCENCIA [facility] Start: 11-21-2024 End: 11-21-2024 Telephone encounter Eulalia Torres LPN [facility] Comment on above: REMINDER CALL - URBAN SYN LOADING Start: 10-28-2024 End: 10-28-2024 Telephone encounter Angela Austin LPN [facility] Comment on above: EP Surgery (PT Educa tion) EP Surgery (Med Load ing) Start: 10-26-2024 End: 10-26-2024 Office outpatient visit 25 minutes Balwinder Plascencia MD Work Phone: [facility] Comment on above: Paroxysmal atrial fi brillation (CMS-HCC) (Primary Dx) Start: 10-26-2024 End: 10-26-2024 ambulatory BALWINDER PLASCENCIA [facility] Start: 10-25-2024 End: 10-25-2024 Telephone encounter Ijeoma Kendall CMA [facility] Start: 08-08-2024 End: 08-08-2024 Telephone [facility]ia Miranda [facility] Comment on above: Biotel strip Start: 07-22-2024 End: 08-29-2024 ambulatory [facility] Start: 07-22-2024 End: 07-22-2024 Office outpatient visit 25 minutes [facility] TEASEL GIG OPERATOR-LINEN MANAGER Work Phone: [facility] Comment on above: Paroxysmal atrial fi brillation (CMS-HCC) (Primary Dx); Atrial flutter (CMS-HCC); Status post placement of implantable loop recorder Start: 07-22-2024 End: 07-22-2024 ambulatory [facility] Start: 06-25-2024 End: 06-27-2024 Refill Cindy Thurston TEASEL GIG OPERATOR-LINEN MANAGER Work Phone: [facility] Comment on above: Med Refill Start: 11-21-2022 End: 11-22-[address] LACEY MARION Facility:[facility] Start: 08-09-2022 End: 08-10-[address] LACEY MARION Facility:[facility] Start: 12-23-2017 End: 12-24-2017 Ambulatory [facility] Facility:[facility] Procedures Date Procedure Procedure Detail Performing Clinician Start: 12-01-2024 Ecg routine ecg w/le ast 12 lds trcg only w/o i&r Balwinder Plascencia MD Work Phone: Start: 12-01-2024 Basic metabolic pane l calcium total Balwinder Plascencia MD Work Phone: Start: 11-30-2024 Ecg routine ecg w/le ast 12 lds trcg only w/o i&r Balwinder Plascencia MD Work Phone: Start: 11-30-2024 Ecg routine ecg w/le ast 12 lds trcg only w/o i&r Balwinder Plascencia MD Work Phone: Start: 11-30-2024 Cardioversion electi ve arrhythmia external Balwinder Plascencia MD Work Phone: Start: 11-30-2024 Ecg routine ecg w/le ast 12 lds trcg only w/o i&r Balwinder Plascencia MD Work Phone: Start: 11-30-2024 Basic metabolic pane l calcium total Balwinder Plascencia MD Work Phone: Start: 11-29-2024 Ecg routine ecg w/le ast 12 lds trcg only w/o i&r Balwinder Plascencia MD Work Phone: Start: 11-29-2024 Ecg routine ecg w/le ast 12 lds trcg only w/o i&r Balwinder Plascencia MD Work Phone: Start: 11-29-2024 Ecg routine ecg w/le ast 12 lds trcg only w/o i&r Balwinder Plascencia MD Work Phone: Start: 11-29-2024 Basic metabolic pane l calcium total Balwinder Plascencia MD Work Phone: Start: 11-28-2024 Ecg routine ecg w/le ast 12 lds trcg only w/o i&r Balwinder Plascencia MD Work Phone: Start: 11-28-2024 Basic metabolic pane l calcium total Balwinder Plascencia MD Work Phone: Start: 11-28-2024 Ecg routine ecg w/le ast 12 lds trcg only w/o i&r Balwinder Plascencia MD Work Phone: Start: 11-28-2024 Adult depression scr eening assessment Balwinder Plascencia MD Work Phone: Start: 10-26-2024 Ecg routine ecg w/le ast 12 lds w/i&r Balwinder Plascencia MD Work Phone: Start: 10-26-2024 Follow-up visit Follow-up BALWINDER PLASCENCIA Start: 07-22-2024 Ecg routine ecg w/le ast 12 lds w/i&r Adryan Long TEASEL GIG OPERATOR-LINEN MANAGER Work Phone: Start: 07-22-2024 Follow-up visit Follow-up ADRYAN LONG Start: 07-01-2019 Colonoscopy Cindy Valencia TEASEL GIG OPERATOR-LINEN MANAGER Work Phone: Start: 12-24-2017 FLUOROSCOPY OF MULTI PLE CORONARY ARTERIES USING OTH CONTRAST OJ ROCHA Plan of Treatment Date Care Activity Detail Author Start: 07-01-2029 Screening for malign ant neoplasm of colon Colonoscopy [facility] Start: 12-10-2025 Adult BMI Screening Adult BMI Screen ing [facility] Start: 11-28-2025 Depression Screening Depression Scre ening [facility] Start: 11-28-2025 Tobacco Screening Tobacco Screening [facility] Start: 10-26-2025 Adult BMI Screening Adult BMI Screen ing [facility] Start: 10-26-2025 Tobacco Screening Tobacco Screening [facility] Start: 07-22-2025 Adult BMI Screening Adult BMI Screen ing [facility] Start: 07-22-2025 Tobacco Screening Tobacco Screening [facility] Start: 04-12-2025 End: 04-12-2025 Patient encounter procedure 04/12/2025 11:00 AM EDT Office Visit [facility] [address] [place] [address] Adryan Long, TEASEL GIG OPERATOR-LINEN MANAGER [address] [place] [address] [facility] Start: 11-28-2024 Evaluation and manag ement of inpatient 11/28/2024 12:01 AM EST Hospital Encounter Balwinder Plascencia MD [address] [place] [address] [facility] Start: 11-21-2024 End: 10-28-2025 Basic metabolic 2000 panel - Serum or Plasma Basic Metabolic Panel Lab Routine Paroxysmal atrial fibrillation (CMS-HCC) Atrial flutter (CMS-HCC) Expected: 11/21/2024, Expires: 10/28/2025 [employer] Work Phone: Comment on above: Expected: 11/21/2024 , Expires: 10/28/2025 Start: 11-21-2024 End: 10-28-2025 CBC W Auto Differential panel - Blood CBC auto differential Lab Routine Paroxysmal atrial fibrillation (CMS-HCC) Atrial flutter (CMS-HCC) Expected: 11/21/2024, Expires: 10/28/2025 [facility] Comment on above: Expected: 11/21/2024 , Expires: 10/28/2025 Start: 11-21-2024 End: 10-28-2025 Magnesium [Mass/volume] in Serum or Plasma Magnesium Lab Routine Paroxysmal atrial fibrillation (CMS-HCC) Atrial flutter (CMS-HCC) Expected: 11/21/2024, Expires: 10/28/2025 [facility] Comment on above: Expected: 11/21/2024 , Expires: 10/28/2025 Start: 10-26-2024 End: 10-26-2024 Patient encounter procedure 10/26/2024 10:30 AM EST Office Visit [facility] [address] [place] [address] Balwinder Plascencia MD [address] [place] [address] [facility] Start: 07-22-2024 End: 07-22-2025 Wireless Telemetry (In Office) [facility] Work Phone: Comment on above: Expected: 07/22/2024 , Expires: 07/22/2025 Start: 07-22-2024 End: 07-22-2024 Patient encounter procedure 07/22/2024 12:00 PM EDT Office Visit [facility] [address] [place] [address] Adryan Long APRN-RAHEEM [address] [place] [address] [facility] Start: 07-04-2024 Adult BMI Screening Adult BMI Screen ing [facility] [employer] [facility] Start: 07-04-2024 Tobacco Screening Tobacco Screening [facility] [employer] [facility] Start: 06-19-2024 COVID-19 Vaccine ( season) COVID-19 Vaccine ( season) [facility] Start: 06-19-2024 Influenza vaccination Influenza Vacc ine [facility] Start: 2021 Fall Risk Screening Fall Risk Screen ing [facility] Start: 2006 Administration of dc ricella zoster vaccine Zoster (Shingles) Vaccine (1 of 2) [facility] Start: 1975 DTaP,Tdap and Td Vac cines (1 - Tdap) DTaP,Tdap and Td Vaccines (1 - Tdap) [facility] [employer] Start: 1968 Depression Screening Depression Scre ening [facility] [employer] [facility] Start: 1956 Medicare Annual Well ness Visit Medicare Annual Wellness Visit [facility] [employer] [facility] Start: 1956 Tobacco Counseling Tobacco Counselin g [facility] End: 12-02-2024 Basic metabolic 2000 panel - Serum or Plasma Basic Metabolic Panel Lab Routine Lab max of 3 days, Daily, for lab use only for 5 Days starting 11/28/2024 until 12/02/2024, 4 completed [facility] Comment on above: Lab max of 3 days, D aily, for lab use only for 5 Days starting 11/28/2024 until 12/02/2024, 4 completed End: 06-27-2025 Basic metabolic 2000 panel - Serum or Plasma Basic Metabolic Panel Lab Routine Paroxysmal atrial fibrillation ([facility]-HCC) 1 Occurrences starting 06/27/2024 until 06/27/2025 [employer] Work Phone: Comment on above: 1 Occurrences starti ng 06/27/2024 until 06/27/2025 End: 06-27-2025 CBC panel - Blood by Automated count CBC Lab Routine Paroxysmal atrial fibrillation [facility] 1 Occurrences starting 06/27/2024 until 06/27/2025 [facility] Comment on above: 1 Occurrences starti ng 06/27/2024 until 06/27/2025 Electrocardiogram EKG ECG Routin e BID until discontinued starting 11/28/2024, 6 completed [facility] Comment on above: BID until discontinu ed starting 11/28/2024, 6 completed End: 12-02-2024 Magnesium [Mass/volume] in Serum or Plasma Magnesium Lab Routine Lab max of 3 days, Daily, for lab use only for 5 Days starting 11/28/2024 until 12/02/2024, 4 completed [facility] Comment on above: Lab max of 3 days, D aily, for lab use only for 5 Days starting 11/28/2024 until 12/02/2024, 4 completed Oxygen Therapy - Lilia ntain SpO2: 90%; *[employer] SAL[employer] Guidelines for O2: Yes; Document: \[employer]\epic\E PIC_Reference\Orders\Respir atory Care Guidelines\CPG Oxygen 2022.pdf Oxygen Therapy - Maintain SpO2: 90%; *DIRECT[employer] SAL[employer] Guidelines for O2: Yes; Document: \[employer]org\e pic\EPIC_Reference\Ord ers\Respiratory Care Guidelines\CPG Oxygen 2022.pdf Respiratory Care Routine As Needed until discontinued starting 11/28/2024 [facility] Comment on above: As Needed until disc ontinued starting 11/28/2024 End: 11-28-2024 Pulse oximetry, spot On current oxygen flow Pulse oximetry, spot On current oxygen flow Respiratory Care Routine Once for 1 Occurrences starting 11/28/2024 until 11/28/[facility]: Comment on above: Once for 1 Occurrenc es starting 11/28/2024 until 11/28/2024 End: 06-27-2025 Thyroid profile includes TSH FT4 Thyroid profile includes TSH FT4 Lab Routine Paroxysmal atrial fibrillation (CMS-HCC) 1 Occurrences starting 06/27/2024 until 06/27/2025 [facility] Comment on above: 1 Occurrences starti ng 06/27/2024 until 06/27/2025 Immunizations Immunization Date Immunization Notes Care Provider Fa cility 06-27-2024 influenza, high dose seasonal, preservative-free Balwinder Plascencia MD Work Phone: [facility] 10-18-2023 zoster vaccine recombinant Balwinder Plascencia MD Work Phone: [facility] 08-13-2023 zoster vaccine recombinant Balwinder Plascencia MD Work Phone: [facility] 08-12-2023 Pneumococcal Conjuga te 20-valent Balwinder Plascencia MD Work Phone: [facility] 08-12-2023 RSV, recombinant, protein subunit RSVpreF, adjuvant reconstituted, 0.5 mL, PF Balwinder Plascencia MD Work Phone: [facility] 08-03-2023 Influenza Vaccine, Quadrivalent, Adjuvanted Balwinder Plascencia MD Work Phone: [facility] 08-10-2022 influenza, high dose seasonal, preservative-free Balwinder Plascencia MD Work Phone: [facility] 08-10-2022 pneumococcal polysaccharide vaccine, 23 valent Balwinder Plascencia MD Work Phone: [facility] 08-10-2022 influenza virus vaccine, unspecified formulation Cindy Thurston APRN-LINEN MANAGER [facility] Phone[facility] 07-30-2021 Influenza, injectabl e, Madin [place] Canine Kidney, preservative free, quadrivalent Balwinder Plascencia MD [facility] 07-19-2020 influenza, injectabl e, quadrivalent, preservative free Balwinder Plascencia MD [facility] Phone[facility] 08-13-2019 influenza, injectabl e, quadrivalent, preservative free Balwinder Plascencia MD [facility] Phone[facility] 09-24-2018 pneumococcal polysaccharide vaccine, 23 valent Cindy Karena TEASEL GIG OPERATOR-LINEN MANAGER Work Phone: [facility] 08-16-2009 novel [id number], preservative-free, injectable Balwinder Plascencia MD Work Phone[facility] Payers Date Payer Category Payer Medicare HMO [facility] MEDICARE [id number] 2023 Medicare [id number] 2021 Unknown [id number] 1959 Unknown [id number] 1956 Unknown [id number] 1956 Unknown [id number] 1956 Unknown [id number] 1956 Unknown [id number] 1956 Unknown [id number] 1956 Unknown [id number] 1956 Unknown [id number] 1956 Unknown [id number] .[id number] [facility] [id number] Medicare [employer] [place] MEDICARE [employer] MEDICARE ADVANTAGE [id number] Effective for all dates [phone] [id number] [place] [address] [id number] Social History Date Type Detail Facility Start: 07-22-2024 Tobacco smoking status NHIS Ex-smoker [facility] Start: 09-16-1972 History of tobacco use Current smoker [facility] Start: 09-16-1972 History of tobacco use Cigarette Smoker [facility] Start: 07-04-2023 End: 07-22-2024 Tobacco use and exposure Smokeless tobacco non-user [facility] Start: 07-22-2024 End: 11-28-2024 Alcoholic beverage intake Current drinker of alcohol (finding) [facility] Start: 09-08-2018 End: 11-29-2020 History of Social function [facility] Start: 09-08-2018 End: 11-29-2020 Alcohol Use Disorder Identification Test - Consumption [AUDIT-C] [facility] Frequency of Alcohol Consumption Never [facility] Start: 07-04-2023 Tobacco Comment maybe 3 cigarettes a day as of 06/23/2019 [facility] Start: 06-23-2019 Alcohol Comment socially [facility] Start: 1955 Sex assigned at Not on file [facility] Start: 05-24-2015 Sex Female (finding) [facility] Has the electric, ga s, oil, or water company threatened to shut off services in your home in past 12Mo [facility]: [facility] Tobacco smoking status NHIS Occasional tobacco smoker [facility] Medical Equipment Procedure Code Equipment Code Equipment Origin al Text Equipment Identifier Dates Sys Crd Rvl Linq Rpl [id number] - [id number] - [id number] Start: 09-16-2018 Functional Status Date Assessment Result Facility [facility] Clinical Notes 11-21-2022 to 12-26-2024 Telephone Encounter - Joanna Salmon - 12/26/2024 3:00 PM EDTTelephone Encounter - Joanna Salmon - 12/26/2024 3:00 PM EDTTelephone Encounter - Nicki Cano - 12/01/2024 2:42 PM ESTAppointments Note Date & Type Note Facility 12-26-2024 Miscellaneous Notes Called Abi regarding the right upper quadrant pain referral that our office received from Gin Kraft NP, left a message on voicemail to call the office back to schedule an appointment. Also called on: 3/5 LM TRC 2/25 LM TRC documented in this encounter [facility] 12-26-2024 Telephone encounter Note Called Abi regarding the right upper quadrant pain referral that our office received from Gin Kraft NP, left a message on voicemail to call the office back to schedule an appointment. Also called on: 3/5 LM TRC 2/25 LM TRC [facility] 12-01-2024 Miscellaneous Notes From the 11/30/2024 procedure list: per JZL. Patient discharged from [facility] s/p DCCV. 3-4 months with EP cardiology. documented in this encounter [facility] 12-01-2024 Telephone encounter Note From the 11/30/2024 procedure list: per JACKIE. Patient discharged from [facility] s/p DCCV. 3-4 months with EP cardiology. [facility] 12-01-2024 Hospital Discharge instructions Mila Bryant RN - 12/01/2024 10:13 AM EST Discharge Follow-Up Will coordinate for follow-up 3-4 months EP cardiology documented in this encounter [facility] 12-01-2024 Progress note Formatting of t his note might be different from the original. DISCHARGE PLANNING NOTE Pt dc plan remains home self care and family support plan dc today - Tata Valdez RN 12/01/24 9:29 AM [facility] 12-01-2024 Miscellaneous Notes DISCHARGE PLANNING NOTE Pt dc plan remains home self care and family support plan dc today - Tata Valdez RN 12/01/24 9:29 AM Problem: Pain Goal: Patient goal is pain score less than 4, able to rest, and participant in treatment plan as appropriate Description: INTERVENTIONS: 1. Encourage patient or legal medical field representative to report early pain and ask for pain medicine when needed 2. Assess pain using appropriate pain scale and include the scale used when documenting 3. Administer analgesics based on type and severity of pain and evaluate response within appropriate time frame 4. Implement non-pharmacological measures as appropriate and evaluate response 5. Consider cultural and social influences on pain and pain management 6. Notify LIP if interventions ineffective or patient reports new pain 7. Monitor vital signs including pulse ox, end-tidal CO2 based on pain intervention 8. Reassess pain per policy 9. Teach patient or legal medical field representative interventions for comforting Outcome: Progressing Note: Evaluation of progress towards goal: patient remains pain free at this time. vital signs monitored, pain assessed q 4 hrs Problem: Safety Goal: Patient will be injury free during hospitalization Description: INTERVENTIONS: 1. Assess patient's risk for falls and implement fall prevention plan of care per policy 2. Provide and maintain a safe environment 3. Proper use of double Identifiers 4. Medication administration using the 5 rights 5. Hand hygiene 6. Specimens are labeled at the bedside 7. Instruct patient/ patient medical field representative about use of safety devices 8. Include patient/ patient medical field representative in decisions related to safety Outcome: Progressing Note: Evaluation of progress towards goal: Patient area free from hazards, call light within reach, anti slip socks on, bed locked and in lowest position. Problem: Knowledge Deficit Goal: Patient/patient medical field representative demonstrates understanding of disease process, treatment plan, medications, and discharge instructions Description: INTERVENTIONS 1. Complete learning assessment and assess knowledge base 2. Provide teaching at level of understanding 3. Provide teaching via preferred learning method(s) Outcome: Progressing Note: Evaluation of progress towards goal: Patient updated on treatment and medications. Will continue to educate. Pre Procedure Evaluation: H&P was reviewed and the patient was examined. No change has occurred in the patient's condition since the H&P was completed. ASA: 2 Mallampati: II Sedation plan and risks discussed with: patient Electrocardiac Assessment Method: [place] Basic respiratory resuscitation equipment including Ambu bags, airway devices, suction, oxygen, blood pressure cuff appropriate to size of patient, assistant professor of german, pulse oximetry, ETCO2, and reversal agents are available. An emergency resuscitation cart, advanced resuscitation medications and defibrillator are available in the immediate area. Problem: Pain Goal: Patient goal is pain score less than 4, able to rest, and participant in treatment plan as appropriate Description: INTERVENTIONS: 1. Encourage patient or legal medical field representative to report early pain and ask for pain medicine when needed 2. Assess pain using appropriate pain scale and include the scale used when documenting 3. Administer analgesics based on type and severity of pain and evaluate response within appropriate time frame 4. Implement non-pharmacological measures as appropriate and evaluate response 5. Consider cultural and social influences on pain and pain management 6. Notify LIP if interventions ineffective or patient reports new pain 7. Monitor vital signs including pulse ox, end-tidal CO2 based on pain intervention 8. Reassess pain per policy 9. Teach patient or legal medical field representative interventions for comforting Outcome: Progressing Note: Evaluation of progress towards goal: pt denies pain at this time Problem: Safety Goal: Patient will be injury free during hospitalization Description: INTERVENTIONS: 1. Assess patient's risk for falls and implement fall prevention plan of care per policy 2. Provide and maintain a safe environment 3. Proper use of double Identifiers 4. Medication administration using the 5 rights 5. Hand hygiene 6. Specimens are labeled at the bedside 7. Instruct patient/ patient medical field representative about use of safety devices 8. Include patient/ patient medical field representative in decisions related to safety Outcome: Progressing Note: Evaluation of progress towards goal: pt safety maintained, call light withinr each Problem: Infection Goal: Absence of infection during hospitalization Description: INTERVENTIONS 1. Assess and monitor for signs and symptoms of infection. 2. Monitor lab/diagnostic results. 3. Monitor all insertion sites i.e., indwelling lines, tubes and drains. 4. Monitor endotracheal (as able) and nasal secretions for changes in amount and color. 5. Administer medications as ordered. 6. Instruct and encourage patient and family to use good hand hygiene technique. 7. Identify and instruct patient/patient medical field representative in use of appropriate isolation precautions for identified infection/symptoms. 8. Provide and discuss with patient/patient medical field representative on educational MDRO sheet. 9. Encourage and monitor nutritional status daily and consult cut off saw grader if indicated. 10. Implement neutropenic guidelines as needed. Outcome: Progressing Note: Evaluation of progress towards goal: no s/s of infection Problem: Knowledge Deficit Goal: Patient/patient medical field representative demonstrates understanding of disease process, treatment plan, medications, and discharge instructions Description: INTERVENTIONS 1. Complete learning assessment and assess knowledge base 2. Provide teaching at level of understanding 3. Provide teaching via preferred learning method(s) Outcome: Progressing Note: Evaluation of progress towards goal: pt updated on plan of care Problem: Discharge Planning Goal: Discharge to post-acute care, other facility, or home with appropriate resources Description: Patient's goal is: INTERVENTIONS 1. Conduct assessment to determine patient/family and health care team treatment goals, and need for post-acute services based on payer coverage, community resources, and patient preferences, and barriers to discharge 2. Coordinate with Social work, Care Navigation, and Utilization Review to arrange appropriate level of services according to patient's needs based on patient preference and payer coverage in collaboration with the physician and health care team 3. Address psychosocial, clinical, and financial barriers to discharge as identified in assessment in conjunction with the patient/family and health care team 4. Consult appropriate ancillary services (i.e.. PT/OT/ST, etc) as needed 5. Communicate with and update the patient/family, physician, and health care team regarding progress on the discharge plan 6. Identify discharge learning needs (meds, wound care, etc). 7. Arrange for needed discharge transportation as appropriate Outcome: Progressing Note: Evaluation of progress towards goal: planm to [facility] home, no needs Problem: Pain Goal: Patient goal is pain score less than 4, able to rest, and participant in treatment plan as appropriate Description: INTERVENTIONS: 1. Encourage patient or legal medical field representative to report early pain and ask for pain medicine when needed 2. Assess pain using appropriate pain scale and include the scale used when documenting 3. Administer analgesics based on type and severity of pain and evaluate response within appropriate time frame 4. Implement non-pharmacological measures as appropriate and evaluate response 5. Consider cultural and social influences on pain and pain management 6. Notify LIP if interventions ineffective or patient reports new pain 7. Monitor vital signs including pulse ox, end-tidal CO2 based on pain intervention 8. Reassess pain per policy 9. Teach patient or legal medical field representative interventions for comforting Outcome: Progressing Note: Evaluation of progress towards goal: Patient is assessed every four hours for pain. Patients vital signs are monitored . Patient nonverbals are assessed Problem: Safety Goal: Patient will be injury free during hospitalization Description: INTERVENTIONS: 1. Assess patient's risk for falls and implement fall prevention plan of care per policy 2. Provide and maintain a safe environment 3. Proper use of double Identifiers 4. Medication administration using the 5 rights 5. Hand hygiene 6. Specimens are labeled at the bedside 7. Instruct patient/ patient medical field representative about use of safety devices 8. Include patient/ patient medical field representative in decisions related to safety Outcome: Progressing Note: Evaluation of progress towards goal: Environment safe from hazards. Medication 5 rights used with every medication administration. Hand hygiene performed with all patient care. Specimens labeled at bedside. Will continue to monitor. Problem: Infection Goal: Absence of infection during hospitalization Description: INTERVENTIONS 1. Assess and monitor for signs and symptoms of infection. 2. Monitor lab/diagnostic results. 3. Monitor all insertion sites i.e., indwelling lines, tubes and drains. 4. Monitor endotracheal (as able) and nasal secretions for changes in amount and color. 5. Administer medications as ordered. 6. Instruct and encourage patient and family to use good hand hygiene technique. 7. Identify and instruct patient/patient medical field representative in use of appropriate isolation precautions for identified infection/symptoms. 8. Provide and discuss with patient/patient medical field representative on educational MDRO sheet. 9. Encourage and monitor nutritional status daily and consult cut off saw grader if indicated. 10. Implement neutropenic guidelines as needed. Outcome: Progressing Note: Evaluation of progress towards goal: Will continue to monitor labs and vital signs Problem: Knowledge Deficit Goal: Patient/patient medical field representative demonstrates understanding of disease process, treatment plan, medications, and discharge instructions Description: INTERVENTIONS 1. Complete learning assessment and assess knowledge base 2. Provide teaching at level of understanding 3. Provide teaching via preferred learning method(s) Outcome: Progressing Note: Evaluation of progress towards goal: Pt is updated on treatment and medications . Will continue to educate Problem: Discharge Planning Goal: Discharge to post-acute care, other facility, or home with appropriate resources Description: Patient's goal is: INTERVENTIONS 1. Conduct assessment to determine patient/family and health care team treatment goals, and need for post-acute services based on payer coverage, community resources, and patient preferences, and barriers to discharge 2. Coordinate with Social work, Care Navigation, and Utilization Review to arrange appropriate level of services according to patient's needs based on patient preference and payer coverage in collaboration with the physician and health care team 3. Address psychosocial, clinical, and financial barriers to discharge as identified in assessment in conjunction with the patient/family and health care team 4. Consult appropriate ancillary services (i.e.. PT/OT/ST, etc) as needed 5. Communicate with and update the patient/family, physician, and health care team regarding progress on the discharge plan 6. Identify discharge learning needs (meds, wound care, etc). 7. Arrange for needed discharge transportation as appropriate Outcome: Progressing Note: Evaluation of progress towards goal: Pt not appropriate for discharge at this time. Will continue to assess DISCHARGE PLANNING NOTE Baby Sitter met with patient, introduced self, and explained role. Patient educated on safe discharge plan. Pt admitted 11/28/2024 with Atrial fibrillation ([facility]) [I48.91] QT prolongation [R94.31] A-fib ([facility]) [I48.91] per chart review. Consults: Electrophysiology Discharge Barriers per Daily Transition Rounds and chart review: tikosyn load, may need cardioversion Past Medical History: Diagnosis Date A-fib ([facility]) Anemia Arrhythmia Atrial flutter 09/16/2018 Blood transfusion abn reaction or complication, no procedure mishap GERD (gastroesophageal reflux disease) History of open heart surgery Hypothyroidism Near syncope 2006 Severe dysplasia of cervix Dr. Mejia Vision problems Prior to admission patient was living with family and self care. Medical equipment patient used prior to admission includes: None. Patient denies need for transportation/ food/ prescription medication assistance resources. Pt can afford xarelto but did discuss cost. Pt does not think she used free card, provided PCP: LACEY MARION MD Pharmacy:[facility] PCP and pharmacy confirmed with patient. CN offered to assist with follow up appointment arrangements; patient declines. LACEY MARION MD added to Follow Up Providers for Summary of Care communication. Current discharge plan is: home Services Requested: Services Requested Patient expects to be discharged to:: home Discharge Disposition: Home with self care Goals: Goals None Pt has no home care or any need on dc - Tata Valdez RN 11/29/24 10:50 AM Will continue to follow as plan of care develops. CN discussed benefits and importance of medication compliance and follow ups. Please feel free to reach out for any discharge planning questions. - Tata Valdez RN 11/29/24 10:48 AM Problem: Pain Goal: Patient goal is pain score less than 4, able to rest, and participant in treatment plan as appropriate Description: INTERVENTIONS: 1. Encourage patient or legal medical field representative to report early pain and ask for pain medicine when needed 2. Assess pain using appropriate pain scale and include the scale used when documenting 3. Administer analgesics based on type and severity of pain and evaluate response within appropriate time frame 4. Implement non-pharmacological measures as appropriate and evaluate response 5. Consider cultural and social influences on pain and pain management 6. Notify LIP if interventions ineffective or patient reports new pain 7. Monitor vital signs including pulse ox, end-tidal CO2 based on pain intervention 8. Reassess pain per policy 9. Teach patient or legal medical field representative interventions for comforting Outcome: Progressing Note: Evaluation of progress towards goal: Patient denies pain at this time. Problem: Pain Goal: Patient goal is pain score less than 4, able to rest, and participant in treatment plan as appropriate Description: INTERVENTIONS: 1. Encourage patient or legal medical field representative to report early pain and ask for pain medicine when needed 2. Assess pain using appropriate pain scale and include the scale used when documenting 3. Administer analgesics based on type and severity of pain and evaluate response within appropriate time frame 4. Implement non-pharmacological measures as appropriate and evaluate response 5. Consider cultural and social influences on pain and pain management 6. Notify LIP if interventions ineffective or patient reports new pain 7. Monitor vital signs including pulse ox, end-tidal CO2 based on pain intervention 8. Reassess pain per policy 9. Teach patient or legal medical field representative interventions for comforting Outcome: Progressing Note: Evaluation of progress towards goal: Patient is assessed every four hours for pain. Patients vital signs are monitored . Patient nonverbals are assessed Problem: Safety Goal: Patient will be injury free during hospitalization Description: INTERVENTIONS: 1. Assess patient's risk for falls and implement fall prevention plan of care per policy 2. Provide and maintain a safe environment 3. Proper use of double Identifiers 4. Medication administration using the 5 rights 5. Hand hygiene 6. Specimens are labeled at the bedside 7. Instruct patient/ patient medical field representative about use of safety devices 8. Include patient/ patient medical field representative in decisions related to safety Outcome: Progressing Note: Evaluation of progress towards goal: Environment safe from hazards. Medication 5 rights used with every medication administration. Hand hygiene performed with all patient care. Specimens labeled at bedside. Will continue to monitor. Problem: Infection Goal: Absence of infection during hospitalization Description: INTERVENTIONS 1. Assess and monitor for signs and symptoms of infection. 2. Monitor lab/diagnostic results. 3. Monitor all insertion sites i.e., indwelling lines, tubes and drains. 4. Monitor endotracheal (as able) and nasal secretions for changes in amount and color. 5. Administer medications as ordered. 6. Instruct and encourage patient and family to use good hand hygiene technique. 7. Identify and instruct patient/patient medical field representative in use of appropriate isolation precautions for identified infection/symptoms. 8. Provide and discuss with patient/patient medical field representative on educational MDRO sheet. 9. Encourage and monitor nutritional status daily and consult cut off saw grader if indicated. 10. Implement neutropenic guidelines as needed. Outcome: Progressing Note: Evaluation of progress towards goal: Pt is afebrile at present time will monitor labs and vital signs Problem: Knowledge Deficit Goal: Patient/patient medical field representative demonstrates understanding of disease process, treatment plan, medications, and discharge instructions Description: INTERVENTIONS 1. Complete learning assessment and assess knowledge base 2. Provide teaching at level of understanding 3. Provide teaching via preferred learning method(s) Outcome: Progressing Note: Evaluation of progress towards goal: Pt is updated on treatment and medications . Will continue to educate Problem: Discharge Planning Goal: Discharge to post-acute care, other facility, or home with appropriate resources Description: Patient's goal is: INTERVENTIONS 1. Conduct assessment to determine patient/family and health care team treatment goals, and need for post-acute services based on payer coverage, community resources, and patient preferences, and barriers to discharge 2. Coordinate with Social work, Care Navigation, and Utilization Review to arrange appropriate level of services according to patient's needs based on patient preference and payer coverage in collaboration with the physician and health care team 3. Address psychosocial, clinical, and financial barriers to discharge as identified in assessment in conjunction with the patient/family and health care team 4. Consult appropriate ancillary services (i.e.. PT/OT/ST, etc) as needed 5. Communicate with and update the patient/family, physician, and health care team regarding progress on the discharge plan 6. Identify discharge learning needs (meds, wound care, etc). 7. Arrange for needed discharge transportation as appropriate Outcome: Progressing Note: Evaluation of progress towards goal: Pt not appropriate for discharge at this time. Will continue to assess Problem: Pain Goal: Patient goal is pain score less than 4, able to rest, and participant in treatment plan as appropriate Description: INTERVENTIONS: 1. Encourage patient or legal medical field representative to report early pain and ask for pain medicine when needed 2. Assess pain using appropriate pain scale and include the scale used when documenting 3. Administer analgesics based on type and severity of pain and evaluate response within appropriate time frame 4. Implement non-pharmacological measures as appropriate and evaluate response 5. Consider cultural and social influences on pain and pain management 6. Notify LIP if interventions ineffective or patient reports new pain 7. Monitor vital signs including pulse ox, end-tidal CO2 based on pain intervention 8. Reassess pain per policy 9. Teach patient or legal medical field representative interventions for comforting Note: Evaluation of progress towards goal: Pt denies any pain at this time. Continue to assess pt using pain scale and observe pt for any signs of discomfort. Problem: Safety Goal: Patient will be injury free during hospitalization Description: INTERVENTIONS: 1. Assess patient's risk for falls and implement fall prevention plan of care per policy 2. Provide and maintain a safe environment 3. Proper use of double Identifiers 4. Medication administration using the 5 rights 5. Hand hygiene 6. Specimens are labeled at the bedside 7. Instruct patient/ patient medical field representative about use of safety devices 8. Include patient/ patient medical field representative in decisions related to safety Note: Evaluation of progress towards goal: Pt has remained free from falls at this time. Problem: Infection Goal: Absence of infection during hospitalization Description: INTERVENTIONS 1. Assess and monitor for signs and symptoms of infection. 2. Monitor lab/diagnostic results. 3. Monitor all insertion sites i.e., indwelling lines, tubes and drains. 4. Monitor endotracheal (as able) and nasal secretions for changes in amount and color. 5. Administer medications as ordered. 6. Instruct and encourage patient and family to use good hand hygiene technique. 7. Identify and instruct patient/patient medical field representative in use of appropriate isolation precautions for identified infection/symptoms. 8. Provide and discuss with patient/patient medical field representative on educational MDRO sheet. 9. Encourage and monitor nutritional status daily and consult cut off saw grader if indicated. 10. Implement neutropenic guidelines as needed. Note: Evaluation of progress towards goal: Pt has remained free of infection at this time. Problem: Knowledge Deficit Goal: Patient/patient medical field representative demonstrates understanding of disease process, treatment plan, medications, and discharge instructions Description: INTERVENTIONS 1. Complete learning assessment and assess knowledge base 2. Provide teaching at level of understanding 3. Provide teaching via preferred learning method(s) Note: Evaluation of progress towards goal: Continuing to assess the patients knowledge on disease process, treatment plan, medications, and discharge instructions. Patient and family education are being addressed if concerns are presented. Problem: Discharge Planning Goal: Discharge to post-acute care, other facility, or home with appropriate resources Description: Patient's goal is: INTERVENTIONS 1. Conduct assessment to determine patient/family and health care team treatment goals, and need for post-acute services based on payer coverage, community resources, and patient preferences, and barriers to discharge 2. Coordinate with Social work, Care Navigation, and Utilization Review to arrange appropriate level of services according to patient's needs based on patient preference and payer coverage in collaboration with the physician and health care team 3. Address psychosocial, clinical, and financial barriers to discharge as identified in assessment in conjunction with the patient/family and health care team 4. Consult appropriate ancillary services (i.e.. PT/OT/ST, etc) as needed 5. Communicate with and update the patient/family, physician, and health care team regarding progress on the discharge plan 6. Identify discharge learning needs (meds, wound care, etc). 7. Arrange for needed discharge transportation as appropriate Note: Evaluation of progress towards goal: Pt plans to discharge home with no needs or resources requested at this time. Problem: Low Risk Fall Score Description: Guillen Fall Score of 0 - 24 or indicated by [facility] Assessment Goal: Patient should be free from fall Description: Interventions: 1. [place] to environment 2. Hourly rounds addressing the 4 P's (Pain, Positioning, Possessions, Potty) 3. Clear area of hazards (spills, clutter, electrical cords, unnecessary equipment) 4. Place equipment (bed & TV controls, call light, phone, urinal) within reach 5. Encourage patient to wear glasses and hearing aides as appropriate 6. Maintain bed in lowest position 7. Lock wheels on bed/wheelchair 8. Provide adequate lighting, including night light 9. Assess need for additional bedding, food/fluids, pain med's prior to sleep/routinely 10. Provide gripper slippers or personal non-skid footwear 11. Teach patient and patient medical field representative to maintain environment for safety and engage in all aspects of fall prevention program Note: Evaluation of progress towards goal: Pt has remained free from falls at this time. documented in this encounter [facility] 12-01-2024 Hospital course Narrative Images from the original note were not included. [facility] - Electrophysiology [address], [place] [address] DISCHARGE SUMMARY PATIENT NAME: Abi Victoria : 1955 AGE: 69 y.o. Admission Date: 11/28/2024 Discharge Date: Reason for Admission: Principal Problem: Atrial fibrillation ([facility]) Active Problems: A-fib ([facility]) PROCEDURES Cardioversion BRIEF SUMMARY OF HOSPITAL COURSE 69-year-old female who presented for elective Tikosyn loading. History of hypothyroidism, WPW with surgical ablation in 1989, symptomatic paroxysmal atrial fibrillation/atrial flutter with prior PVI/CTI, focal atrial tachycardia RF ablation 2017 Recurrent atrial tachycardia with tachy induced cardiomyopathy that warranted right-sided atrial tach ablation x2 and redo RF CTI March of 2021 CKD on renal dosing Xarelto 15 mg Creatinine trends 1.0 to1.18. Potassium And magnesium remained within normal range Maintain Tikosyn starting at 250 mcg through the course of her stay. Cardioversion after the 4th dose. QTC around 470 millisecond. Discharging home along with beta-maude reduced dose. Will arrange for follow-up next 3-4 months Consulting Providers: Consulting Providers Not on file DISCHARGE INSTRUCTIONS Home Activity: No restriction. Diet: general Follow-up To office in: 3-4 months with EP cardiology DISCHARGE MEDICATIONS Medication List START taking these medications Instructions Last Dose Given Next Dose Due dofetilide 250 MCG capsule Commonly known as: TIKOSYN Take 1 capsule (250 mcg total) by mouth every 12 (twelve) hours. CHANGE how you take these medications Instructions Last Dose Given Next Dose Due metoprolol succinate XL 25 mg 24 hr tablet Commonly known as: TOPROL XL What changed: medication strength how much to take when to take this Take 1 tablet (25 mg total) by mouth in the morning and 1 tablet (25 mg total) before bedtime. CONTINUE taking these medications Instructions Last Dose Given Next Dose Due furosemide 20 mg tablet Commonly known as: LASIX Take 1 tablet (20 mg total) by mouth daily as needed (lower extremity swelling). levothyroxine 125 MCG tablet Commonly known as: SYNTHROID, LEVOTHROID Take 1 tablet (125 mcg total) by mouth in the morning. liothyronine 5 MCG tablet Commonly known as: CYTOMEL Take 2 tablets (10 mcg total) by mouth in the morning. pantoprazole 40 mg EC tablet Commonly known as: PROTONIX Take 1 tablet (40 mg total) by mouth in the morning. rivaroxaban 15 mg tablet Commonly known as: XARELTO Take 1 tablet (15 mg total) by mouth in the morning. TAKE 1 TABLET (15 MG TOTAL) BY MOUTH IN THE MORNING. STOP taking these medications flecainide 100 mg tablet Commonly known as: TAMBOCOR sulfamethoxazole-trimethoprim 800-160 mg per tablet Commonly known as: BACTRIM DS Where to Get Your Medications These medications were sent to [facility]/pharmacy #[id number] [place] [address] dofetilide 250 MCG capsule metoprolol succinate XL 25 mg 24 hr tablet BP 123/80 Pulse 73 Temp 36.5 C (97.7 F) (Oral) Resp 16 Ht 165.1 cm (5' 5 ) Wt 66.6 kg (146 lb 13.2 oz) SpO2 98% BMI 24.43 kg/m Admit Weight Weight: 66 kg (145 lb 8.1 oz) Last 3 Weight Readings 11/29/24 0533 11/30/24 0000 11/30/24 2321 Weight: 66.5 kg (146 lb 9.7 oz) 67.6 kg (149 lb 0.5 oz) 66.6 kg (146 lb 13.2 oz) CBC: BMP: Results from last 7 days Lab Units 12/01/24 0425 11/30/24 0703 11/29/24 0421 SODIUM mmol/L 145 144 144 POTASSIUM mmol/L 4.1 4.2 4.0 CHLORIDE mmol/L 112* 110* 111* CO2 mmol/L 25 27 24 BUN mg/dL 23 20 25 CREATININE mg/dL 1.17* 0.98 1.10* CALCIUM mg/dL 8.6 8.5 8.4* MAGNESIUM mg/dL 2.0 2.1 1.9 PT/INR: APTT: MAG: Results from last 7 days Lab Units 12/01/24 0425 11/30/24 0703 11/29/24 0421 MAGNESIUM mg/dL 2.0 2.1 1.9 D Dimer: Troponin I ProBNP PHYSICAL EXAM General appearance: awake, alert, oriented, moves all extremities Lungs: no rhonchi, no wheezes, no rales Heart: S1-S2 Abdomen: positive bowel sounds, no bruits, no masses Extremities: warm and dry, no cyanosis, no clubbing RAYO SUAREZ This note was completed using a voice low heel builder system. Every effort was made to ensure accuracy. However, inadvertent computerized low heel builder errors may be present. RAYO Suarez 12/01/24 0921 I, BALWINDER PLASCENCIA MD, personally performed the face to face diagnostic evaluation on this patient. I have reviewed the ASHTYN's History, Exam, and MDM and agree with the assessment and plan as written. documented in this encounter [facility] 11-30-2024 Plan of care note Problem: Pain Goal: Patient goal is pain score less than 4, able to rest, and participant in treatment plan as appropriate Description: INTERVENTIONS: 1. Encourage patient or legal medical field representative to report early pain and ask for pain medicine when needed 2. Assess pain using appropriate pain scale and include the scale used when documenting 3. Administer analgesics based on type and severity of pain and evaluate response within appropriate time frame 4. Implement non-pharmacological measures as appropriate and evaluate response 5. Consider cultural and social influences on pain and pain management 6. Notify LIP if interventions ineffective or patient reports new pain 7. Monitor vital signs including pulse ox, end-tidal CO2 based on pain intervention 8. Reassess pain per policy 9. Teach patient or legal medical field representative interventions for comforting Outcome: Progressing Note: Evaluation of progress towards goal: patient remains pain free at this time. vital signs monitored, pain assessed q 4 hrs Problem: Safety Goal: Patient will be injury free during hospitalization Description: INTERVENTIONS: 1. Assess patient's risk for falls and implement fall prevention plan of care per policy 2. Provide and maintain a safe environment 3. Proper use of double Identifiers 4. Medication administration using the 5 rights 5. Hand hygiene 6. Specimens are labeled at the bedside 7. Instruct patient/ patient medical field representative about use of safety devices 8. Include patient/ patient medical field representative in decisions related to safety Outcome: Progressing Note: Evaluation of progress towards goal: Patient area free from hazards, call light within reach, anti slip socks on, bed locked and in lowest position. Problem: Knowledge Deficit Goal: Patient/patient medical field representative demonstrates understanding of disease process, treatment plan, medications, and discharge instructions Description: INTERVENTIONS 1. Complete learning assessment and assess knowledge base 2. Provide teaching at level of understanding 3. Provide teaching via preferred learning method(s) Outcome: Progressing Note: Evaluation of progress towards goal: Patient updated on treatment and medications. Will continue to educate. [facility] 11-30-2024 Nurse Note Transfer of care. Hand off report given. [facility] 11-30-2024 Nurse Note Transfer of care. Hand off report given. documented in this encounter [facility] 11-30-2024 Procedure note Images from the original note were not included. Date of Admission: 11/28/2024 Date of Procedure: 11/30/2024 PROCEDURE: Transthoracic Direct Current Cardioversion DIAGNOSIS AND PRESENTING RHYTHM: atypical atrial flutter vs AT POSTPROCEDURE DIAGNOSIS: Same TIME-OUT: A time-out was completed verifying correct patient, procedure, positioning, and special equipment prior to beginning this procedure. CONSENT: The risks, benefits, approach and potential complications of the procedure were discussed. The patient was able to give written informed consent after revisiting the grant portions of the risk versus benefit profile of the procedure. See previous notes for additional details. This detailed informed consent process utilized mutual and shared decision making process between the physician, patient, and potentially patient's selected family and friends. INDICATION FOR PROCEDURE: 69F w/ PMH CKD 3a, hypothyroidism, WPW s/p surgical ablation 1989, symptomatic paroxysmal AF/AFL s/p RF PVI/CTI and RA focal AT ablation 2017 w/ MDT ILR (at EOS), recurrent AT c/b RVR, NICM thought 2/2 tachycardia w/ EF recovery (BRANDYN 08/2021), s/p R-sided AT x2 ablation and redo RF CTI 03/28/21 w/ [id number] 3 on Xarelto 15 mg qday who presents for dofetilide loading. She was previously on flecainide 100 mg BID along with Toprol 50 mg qday but had recurrent AT vs atypical atrial flutter. She has been started on dofetilide 250 mcg BID doses 4 and 5 today. ANTICOAGULATION STRATEGY PRIOR TO AND POST PROCEDURE: Xarelto. The last dose of anticoagulant was confirmed to have been taken yesterday. ATTENDING: BALWINDER PLASCENCIA MD. ANESTHESIA: Deep sedation with propofol 50 mg. PT/INR: Lab Results Component Value Date INR 1.2 09/22/2018 PTT: No results found for: APTT CBC: Lab Results Component Value Date WBC 6.8 11/22/2024 HGB 14.4 11/22/2024 HCT 43.0 11/22/2024 MCV 94 11/22/2024 RDW 13.4 11/22/2024 PLT 213 11/22/2024 BMP: Lab Results Component Value Date K 4.2 11/30/2024 K 4.0 09/11/2021 CL 110 (H) 11/30/2024 CO2 27 11/30/2024 BUN 20 11/30/2024 CREATININE 0.98 11/30/2024 EGFR 63 11/30/2024 GLU 83 11/30/2024 GLU 99 10/17/2018 Vital Signs: BP (!) 89/6 Pulse 68 Temp 36.8 C (98.2 F) (Oral) Resp 19 Ht 165.1 cm (5' 5 ) Wt 67.6 kg (149 lb 0.5 oz) SpO2 95% BMI 24.80 kg/m O2 Flow Rate (L/min): 0 L/min Admit Weight: 66 kg (145 lb 8.1 oz) BMI: Body mass index is 24.8 kg/m . Procedural Narrative: A time-out was completed verifying correct patient, procedure, positioning, and special equipment prior to beginning this procedure. The patient was brought to the electrophysiology procedure area in a fasting state and placed on a assistant professor of german. External defibrillation pads were applied in the anterior-posterior configuration. Surface electrocardiography confirmed atypical atrial flutter vs AT, rate controlled. Once adequate level of anesthesia was obtained, a synchronized biphasic shock of 360 Joules energy was delivered. The resultant rhythm was NSR. Neurologic examination following recovery from anesthesia demonstrated no focal deficits. The patient tolerated the procedure well and there were no complications. CONCLUSION: Successful DC cardioversion of persistent atypical atrial flutter. RECOMMENDATION: 1. This patient will require at least 4 weeks of uninterrupted anticoagulation. 2. Continue dofetilide loading dose 5 tonight w/ serial EKG's 2 hours after each dose 3. Will obtain post-cardioversion EKG Balwinder Plascencia MD/ONUR, FACC, [facility] Cardiac Electrophysiology [facility] Cardiology Post Deep Sedation Evaluation BP (!) 89/6 Pulse 68 Temp 36.8 C (98.2 F) (Oral) Resp 19 Ht 165.1 cm (5' 5 ) Wt 67.6 kg (149 lb 0.5 oz) SpO2 95% BMI 24.80 kg/m Patient Evaluated: in procedure room Patient Participation: Complete - patient participated Patient Level of Consciousness: Awake Pain Management: Adequate Airway Patency: Patent Anesthetic Complications: No Cardiovascular Status: Hemodynamically Stable Respiratory Status: Stable/Baseline Post-op Hydration: Euvolemic Final Anesthesia Type: brief deep sedation for EP procedure [facility] 11-30-2024 Procedure note Images from the original note were not included. Date of Admission: 11/28/2024 Date of Procedure: 11/30/2024 PROCEDURE: Transthoracic Direct Current Cardioversion DIAGNOSIS AND PRESENTING RHYTHM: atypical atrial flutter vs AT POSTPROCEDURE DIAGNOSIS: Same TIME-OUT: A time-out was completed verifying correct patient, procedure, positioning, and special equipment prior to beginning this procedure. CONSENT: The risks, benefits, approach and potential complications of the procedure were discussed. The patient was able to give written informed consent after revisiting the grant portions of the risk versus benefit profile of the procedure. See previous notes for additional details. This detailed informed consent process utilized mutual and shared decision making process between the physician, patient, and potentially patient's selected family and friends. INDICATION FOR PROCEDURE: 69F w/ PMH CKD 3a, hypothyroidism, WPW s/p surgical ablation 1989, symptomatic paroxysmal AF/AFL s/p RF PVI/CTI and RA focal AT ablation 2017 w/ MDT ILR (at [facility]), recurrent AT c/b RVR, NICM thought 2/2 tachycardia w/ EF recovery (BRANDYN 08/2021), s/p R-sided AT x2 ablation and redo RF CTI 03/28/21 w/ [id number] 3 on Xarelto 15 mg qday who presents for dofetilide loading. She was previously on flecainide 100 mg BID along with Toprol 50 mg qday but had recurrent AT vs atypical atrial flutter. She has been started on dofetilide 250 mcg BID doses 4 and 5 today. ANTICOAGULATION STRATEGY PRIOR TO AND POST PROCEDURE: Xarelto. The last dose of anticoagulant was confirmed to have been taken yesterday. ATTENDING: BALWINDER PLASCENCIA MD. ANESTHESIA: Deep sedation with propofol 50 mg. PT/INR: Lab Results Component Value Date INR 1.2 09/22/2018 PTT: No results found for: APTT CBC: Lab Results Component Value Date WBC 6.8 11/22/2024 HGB 14.4 11/22/2024 HCT 43.0 11/22/2024 MCV 94 11/22/2024 RDW 13.4 11/22/2024 PLT 213 11/22/2024 BMP: Lab Results Component Value Date K 4.2 11/30/2024 K 4.0 09/11/2021 CL 110 (H) 11/30/2024 CO2 27 11/30/2024 BUN 20 11/30/2024 CREATININE 0.98 11/30/2024 EGFR 63 11/30/2024 GLU 83 11/30/2024 GLU 99 10/17/2018 Vital Signs: BP (!) 89/6 Pulse 68 Temp 36.8 C (98.2 F) (Oral) Resp 19 Ht 165.1 cm (5' 5 ) Wt 67.6 kg (149 lb 0.5 oz) SpO2 95% BMI 24.80 kg/m O2 Flow Rate (L/min): 0 L/min Admit Weight: 66 kg (145 lb 8.1 oz) BMI: Body mass index is 24.8 kg/m . Procedural Narrative: A time-out was completed verifying correct patient, procedure, positioning, and special equipment prior to beginning this procedure. The patient was brought to the electrophysiology procedure area in a fasting state and placed on a assistant professor of german. External defibrillation pads were applied in the anterior-posterior configuration. Surface electrocardiography confirmed atypical atrial flutter vs AT, rate controlled. Once adequate level of anesthesia was obtained, a synchronized biphasic shock of 360 Joules energy was delivered. The resultant rhythm was NSR. Neurologic examination following recovery from anesthesia demonstrated no focal deficits. The patient tolerated the procedure well and there were no complications. CONCLUSION: Successful DC cardioversion of persistent atypical atrial flutter. RECOMMENDATION: 1. This patient will require at least 4 weeks of uninterrupted anticoagulation. 2. Continue dofetilide loading dose 5 tonight w/ serial EKG's 2 hours after each dose 3. Will obtain post-cardioversion EKG Balwinder Plascencia MD/ONUR, FAC, [facility] Cardiac Electrophysiology [facility] Cardiology Post Deep Sedation Evaluation BP (!) 89/6 Pulse 68 Temp 36.8 C (98.2 F) (Oral) Resp 19 Ht 165.1 cm (5' 5 ) Wt 67.6 kg (149 lb 0.5 oz) SpO2 95% BMI 24.80 kg/m Patient Evaluated: in procedure room Patient Participation: Complete - patient participated Patient Level of Consciousness: Awake Pain Management: Adequate Airway Patency: Patent Anesthetic Complications: No Cardiovascular Status: Hemodynamically Stable Respiratory Status: Stable/Baseline Post-op Hydration: Euvolemic Final Anesthesia Type: brief deep sedation for EP procedure documented in this encounter [facility] 11-30-2024 Procedure note Pre Procedure Evaluation: H&P was reviewed and the patient was examined. No change has occurred in the patient's condition since the H&P was completed. ASA: 2 Mallampati: II Sedation plan and risks discussed with: patient Electrocardiac [facility] Nurse procedure note Basic respiratory resuscitation equipment including Ambu bags, airway devices, suction, oxygen, blood pressure cuff appropriate to size of patient, assistant professor of german, pulse oximetry, ETCO2, and reversal agents are available. An emergency resuscitation cart, advanced resuscitation medications and defibrillator are available in the immediate area. [facility] Plan of care note Problem: Pain Goal: Patient goal is pain score less than 4, able to rest, and participant in treatment plan as appropriate Description: INTERVENTIONS: 1. Encourage patient or legal medical field representative to report early pain and ask for pain medicine when needed 2. Assess pain using appropriate pain scale and include the scale used when documenting 3. Administer analgesics based on type and severity of pain and evaluate response within appropriate time frame 4. Implement non-pharmacological measures as appropriate and evaluate response 5. Consider cultural and social influences on pain and pain management 6. Notify LIP if interventions ineffective or patient reports new pain 7. Monitor vital signs including pulse ox, end-tidal CO2 based on pain intervention 8. Reassess pain per policy 9. Teach patient or legal medical field representative interventions for comforting Outcome: Progressing Note: Evaluation of progress towards goal: pt denies pain at this time Problem: Safety Goal: Patient will be injury free during hospitalization Description: INTERVENTIONS: 1. Assess patient's risk for falls and implement fall prevention plan of care per policy 2. Provide and maintain a safe environment 3. Proper use of double Identifiers 4. Medication administration using the 5 rights 5. Hand hygiene 6. Specimens are labeled at the bedside 7. Instruct patient/ patient medical field representative about use of safety devices 8. Include patient/ patient medical field representative in decisions related to safety Outcome: Progressing Note: Evaluation of progress towards goal: pt safety maintained, call light withinr each Problem: Infection Goal: Absence of infection during hospitalization Description: INTERVENTIONS 1. Assess and monitor for signs and symptoms of infection. 2. Monitor lab/diagnostic results. 3. Monitor all insertion sites i.e., indwelling lines, tubes and drains. 4. Monitor endotracheal (as able) and nasal secretions for changes in amount and color. 5. Administer medications as ordered. 6. Instruct and encourage patient and family to use good hand hygiene technique. 7. Identify and instruct patient/patient medical field representative in use of appropriate isolation precautions for identified infection/symptoms. 8. Provide and discuss with patient/patient medical field representative on educational MDRO sheet. 9. Encourage and monitor nutritional status daily and consult cut off saw grader if indicated. 10. Implement neutropenic guidelines as needed. Outcome: Progressing Note: Evaluation of progress towards goal: no s/s of infection Problem: Knowledge Deficit Goal: Patient/patient medical field representative demonstrates understanding of disease process, treatment plan, medications, and discharge instructions Description: INTERVENTIONS 1. Complete learning assessment and assess knowledge base 2. Provide teaching at level of understanding 3. Provide teaching via preferred learning method(s) Outcome: Progressing Note: Evaluation of progress towards goal: pt updated on plan of care Problem: Discharge Planning Goal: Discharge to post-acute care, other facility, or home with appropriate resources Description: Patient's goal is: INTERVENTIONS 1. Conduct assessment to determine patient/family and health care team treatment goals, and need for post-acute services based on payer coverage, community resources, and patient preferences, and barriers to discharge 2. Coordinate with Social work, Care Navigation, and Utilization Review to arrange appropriate level of services according to patient's needs based on patient preference and payer coverage in collaboration with the physician and health care team 3. Address psychosocial, clinical, and financial barriers to discharge as identified in assessment in conjunction with the patient/family and health care team 4. Consult appropriate ancillary services (i.e.. PT/OT/ST, etc) as needed 5. Communicate with and update the patient/family, physician, and health care team regarding progress on the discharge plan 6. Identify discharge learning needs (meds, wound care, etc). 7. Arrange for needed discharge transportation as appropriate Outcome: Progressing Note: Evaluation of progress towards goal: planm to [facility] home, no needs [facility] [employer] [facility] 02-11-2025 Plan of care note Problem: Pain Goal: Patient goal is pain score less than 4, able to rest, and participant in treatment plan as appropriate Description: INTERVENTIONS: 1. Encourage patient or legal medical field representative to report early pain and ask for pain medicine when needed 2. Assess pain using appropriate pain scale and include the scale used when documenting 3. Administer analgesics based on type and severity of pain and evaluate response within appropriate time frame 4. Implement non-pharmacological measures as appropriate and evaluate response 5. Consider cultural and social influences on pain and pain management 6. Notify LIP if interventions ineffective or patient reports new pain 7. Monitor vital signs including pulse ox, end-tidal CO2 based on pain intervention 8. Reassess pain per policy 9. Teach patient or legal medical field representative interventions for comforting Outcome: Progressing Note: Evaluation of progress towards goal: Patient is assessed every four hours for pain. Patients vital signs are monitored . Patient nonverbals are assessed Problem: Safety Goal: Patient will be injury free during hospitalization Description: INTERVENTIONS: 1. Assess patient's risk for falls and implement fall prevention plan of care per policy 2. Provide and maintain a safe environment 3. Proper use of double Identifiers 4. Medication administration using the 5 rights 5. Hand hygiene 6. Specimens are labeled at the bedside 7. Instruct patient/ patient medical field representative about use of safety devices 8. Include patient/ patient medical field representative in decisions related to safety Outcome: Progressing Note: Evaluation of progress towards goal: Environment safe from hazards. Medication 5 rights used with every medication administration. Hand hygiene performed with all patient care. Specimens labeled at bedside. Will continue to monitor. Problem: Infection Goal: Absence of infection during hospitalization Description: INTERVENTIONS 1. Assess and monitor for signs and symptoms of infection. 2. Monitor lab/diagnostic results. 3. Monitor all insertion sites i.e., indwelling lines, tubes and drains. 4. Monitor endotracheal (as able) and nasal secretions for changes in amount and color. 5. Administer medications as ordered. 6. Instruct and encourage patient and family to use good hand hygiene technique. 7. Identify and instruct patient/patient medical field representative in use of appropriate isolation precautions for identified infection/symptoms. 8. Provide and discuss with patient/patient medical field representative on educational MDRO sheet. 9. Encourage and monitor nutritional status daily and consult cut off saw grader if indicated. 10. Implement neutropenic guidelines as needed. Outcome: Progressing Note: Evaluation of progress towards goal: Will continue to monitor labs and vital signs Problem: Knowledge Deficit Goal: Patient/patient medical field representative demonstrates understanding of disease process, treatment plan, medications, and discharge instructions Description: INTERVENTIONS 1. Complete learning assessment and assess knowledge base 2. Provide teaching at level of understanding 3. Provide teaching via preferred learning method(s) Outcome: Progressing Note: Evaluation of progress towards goal: Pt is updated on treatment and medications . Will continue to educate Problem: Discharge Planning Goal: Discharge to post-acute care, other facility, or home with appropriate resources Description: Patient's goal is: INTERVENTIONS 1. Conduct assessment to determine patient/family and health care team treatment goals, and need for post-acute services based on payer coverage, community resources, and patient preferences, and barriers to discharge 2. Coordinate with Social work, Care Navigation, and Utilization Review to arrange appropriate level of services according to patient's needs based on patient preference and payer coverage in collaboration with the physician and health care team 3. Address psychosocial, clinical, and financial barriers to discharge as identified in assessment in conjunction with the patient/family and health care team 4. Consult appropriate ancillary services (i.e.. PT/OT/ST, etc) as needed 5. Communicate with and update the patient/family, physician, and health care team regarding progress on the discharge plan 6. Identify discharge learning needs (meds, wound care, etc). 7. Arrange for needed discharge transportation as appropriate Outcome: Progressing Note: Evaluation of progress towards goal: Pt not appropriate for discharge at this time. Will continue to assess [facility] 11-29-2024 Progress note Formatting of t his note is different from the original. DISCHARGE PLANNING NOTE Baby Sitter met with patient, introduced self, and explained role. Patient educated on safe discharge plan. Pt admitted 11/28/2024 with Atrial fibrillation (CMS-FORMER[facility]) [I48.91] QT prolongation [R94.31] A-fib (CMS-FORMER[facility]) [I48.91] per chart review. Consults: Electrophysiology Discharge Barriers per Daily Transition Rounds and chart review: tikosyn load, may need cardioversion Past Medical History: Diagnosis Date A-fib (CMS-[facility]ER[facility]) Anemia Arrhythmia Atrial flutter 09/16/2018 Blood transfusion abn reaction or complication, no procedure mishap GERD (gastroesophageal reflux disease) History of open heart surgery Hypothyroidism Near syncope 2006 Severe dysplasia of cervix Dr. Mejia Vision problems Prior to admission patient was living with family and self care. Medical equipment patient used prior to admission includes: None. Patient denies need for transportation/ food/ prescription medication assistance resources. Pt can afford xarelto but did discuss cost. Pt does not think she used free card, provided PCP: LACEY MARION MD Pharmacy:[facility] PCP and pharmacy confirmed with patient. CN offered to assist with follow up appointment arrangements; patient declines. LACEY MARION MD added to Follow Up Providers for Summary of Care communication. Current discharge plan is: home Services Requested: Services Requested Patient expects to be discharged to:: home Discharge Disposition: Home with self care Goals: Goals None Pt has no home care or any need on dc - Tata Valdez RN 11/29/24 10:50 AM Will continue to follow as plan of care develops. CN discussed benefits and importance of medication compliance and follow ups. Please feel free to reach out for any discharge planning questions. - Tata Valdez RN 11/29/24 10:48 AM [facility] 11-29-2024 History of Present illness Narrative Images from the original note were not included. [facility] - [facility]iology 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 EF recovery per BRANDYN August 2021 Right-sided atrial tach ablation x2 with redo RF CTI March of 2021. She is on Xarelto 50 mg daily due to CKD history who presents for dofetilide loading Breakthrough episodes on previous antiarrhythmic: Flecainide and beta-maude. SUBJECTIVE Ms. Victoria was sitting up having meal this morning. Denied any specific chest discomfort. She has intermittent palpitations and lightheadedness. REVIEW OF SYSTEMS ROS no change from admission H&P. OBJECTIVE VITAL SIGNS BP 103/75 Pulse (!) 130 Temp 36.5 C (97.7 F) (Oral) Resp 19 Ht 165.1 cm (5' 5 ) Wt 66.5 kg (146 lb 9.7 oz) SpO2 95% BMI 24.40 kg/m O2 Device: None (Room air) Pulse Ox: SpO2 Av.5 % Min: 91 % Max: 96 % Supplemental O2: O2 Flow Rate (L/min): 0 L/min Admit Weight Weight: 66 kg (145 lb 8.1 oz) Last 3 Weights Last 3 Weight Readings 11/28/24 1617 11/29/24 0533 Weight: 66 kg (145 lb 8.1 oz) 66.5 kg (146 lb 9.7 oz) Body mass index is 24.4 kg/m . INTAKE/OUTPUT No intake/output data recorded. No intake or output data in the 24 hours ending 11/29/24 1000 PHYSICAL EXAM General appearance: awake, alert, oriented, moves all extremities Lungs: no rhonchi, no wheezes, no rales Heart: S1-S2 Abdomen: positive bowel sounds, no bruits, no masses Extremities: warm and dry, no cyanosis, no clubbing LABS Results from last 7 days Lab Units 11/22/24 1046 WBC X10E9/L 6.8 HEMOGLOBIN g/dL 14.4 HEMATOCRIT % 43.0 MCV fL 94 PLATELETS X10E9/L 213 Results from last 7 days Lab Units 11/29/24 0421 11/28/24 1630 11/22/24 1046 SODIUM mmol/L 144 143 141 POTASSIUM mmol/L 4.0 3.8 4.7 CHLORIDE mmol/L 111* 106 105 CO2 mmol/L 24 30 27 BUN mg/dL 25 27 28* CREATININE mg/dL 1.10* 1.14* 1.18* CALCIUM mg/dL 8.4* 9.2 9.2 MAGNESIUM mg/dL 1.9 2.0 2.0 Results from last 7 days Lab Units 11/29/24 0421 11/28/24 1630 11/22/24 1046 MAGNESIUM mg/dL 1.9 2.0 2.0 No results found for: CHOL , TRIG , HDL , CHOLHDLR CURRENT MEDICATIONS dofetilide, 250 mcg, oral, Q12H AZUL levothyroxine, 125 mcg, oral, Daily [START ON 11/30/2024] liothyronine, 10 mcg, oral, QAM AC metoprolol succinate XL, 50 mg, oral, Daily pantoprazole, 40 mg, oral, Daily rivaroxaban, 15 mg, oral, Nightly sodium chloride, 3 mL, intravenous, Q12H AZUL CONTINUOUS INFUSIONS dextrose 5 % in water, 100 mL/hr sodium chloride 0.9 %, 20 mL/hr, Last Rate: 20 mL/hr (11/29/24 0923) CV HISTORY: EKG: TELEMETRY: Atrial tach/atrial flutter heart rate 130 Early a.m. RVR episode heart rates above 200 beats per minute: One-to-one atrial flutter ASSESSMENT Atrial flutter/atrial tach with RVR episodes earlier this morning. Restarting low-dose beta-maude. She did not receive p.m. dose Toprol 50 mg Encounter for Tikosyn loading. Patient has received 2nd dose early a.m.. CKD stage 3. Xarelto 15 mg daily Persistent atrial fibrillation/atypical atrial flutter and typical atrial flutter S/p RF PVI and CTI, RA focal atrial tach ablation 2017 Right atrial atrial tach and redo CTI March 2021 WPW with surgical ablation 1989 Hypothyroidism PLAN Restarting low-dose beta-maude. She had RVR episodes this a.m. blood pressures average systolic 95. Beta-maude was hold due to lower trends yesterday evening. She typically takes her Toprol in the evening. Does not monitor BP or heart rates at home. Patient does endorse intermittent dizziness and palpitations. Early a.m. she was up brushing her teeth in the bathroom when nursing staff address the RVR episodes. Patient states symptoms similar to what is happened at home. Will continue following along. If remaining in arrhythmia likely plan for cardioversion tomorrow after 4th dose ADRYAN LONG APRN-RAHE[facility] - [facility]rophysiology RAYO Suarez 11/29/24 1006 I, BALWINDER PLASCENCIA MD, personally performed the face to face diagnostic evaluation on this patient. I have reviewed the ASHTYN's History, Exam, and MDM and agree with the assessment and plan as written. Will arrange DCCV for tomorrow if patient does not convert on dofetilide. Keep NPO after MN. documented in this encounter [facility] 11-29-2024 Plan of care note Problem: Pain Goal: Patient goal is pain score less than 4, able to rest, and participant in treatment plan as appropriate Description: INTERVENTIONS: 1. Encourage patient or legal medical field representative to report early pain and ask for pain medicine when needed 2. Assess pain using appropriate pain scale and include the scale used when documenting 3. Administer analgesics based on type and severity of pain and evaluate response within appropriate time frame 4. Implement non-pharmacological measures as appropriate and evaluate response 5. Consider cultural and social influences on pain and pain management 6. Notify LIP if interventions ineffective or patient reports new pain 7. Monitor vital signs including pulse ox, end-tidal CO2 based on pain intervention 8. Reassess pain per policy 9. Teach patient or legal medical field representative interventions for comforting Outcome: Progressing Note: Evaluation of progress towards goal: Patient denies pain at this time. [facility] 11-29-2024 Plan of care note Problem: Pain Goal: Patient goal is pain score less than 4, able to rest, and participant in treatment plan as appropriate Description: INTERVENTIONS: 1. Encourage patient or legal medical field representative to report early pain and ask for pain medicine when needed 2. Assess pain using appropriate pain scale and include the scale used when documenting 3. Administer analgesics based on type and severity of pain and evaluate response within appropriate time frame 4. Implement non-pharmacological measures as appropriate and evaluate response 5. Consider cultural and social influences on pain and pain management 6. Notify LIP if interventions ineffective or patient reports new pain 7. Monitor vital signs including pulse ox, end-tidal CO2 based on pain intervention 8. Reassess pain per policy 9. Teach patient or legal medical field representative interventions for comforting Outcome: Progressing Note: Evaluation of progress towards goal: Patient is assessed every four hours for pain. Patients vital signs are monitored . Patient nonverbals are assessed Problem: Safety Goal: Patient will be injury free during hospitalization Description: INTERVENTIONS: 1. Assess patient's risk for falls and implement fall prevention plan of care per policy 2. Provide and maintain a safe environment 3. Proper use of double Identifiers 4. Medication administration using the 5 rights 5. Hand hygiene 6. Specimens are labeled at the bedside 7. Instruct patient/ patient medical field representative about use of safety devices 8. Include patient/ patient medical field representative in decisions related to safety Outcome: Progressing Note: Evaluation of progress towards goal: Environment safe from hazards. Medication 5 rights used with every medication administration. Hand hygiene performed with all patient care. Specimens labeled at bedside. Will continue to monitor. Problem: Infection Goal: Absence of infection during hospitalization Description: INTERVENTIONS 1. Assess and monitor for signs and symptoms of infection. 2. Monitor lab/diagnostic results. 3. Monitor all insertion sites i.e., indwelling lines, tubes and drains. 4. Monitor endotracheal (as able) and nasal secretions for changes in amount and color. 5. Administer medications as ordered. 6. Instruct and encourage patient and family to use good hand hygiene technique. 7. Identify and instruct patient/patient medical field representative in use of appropriate isolation precautions for identified infection/symptoms. 8. Provide and discuss with patient/patient medical field representative on educational MDRO sheet. 9. Encourage and monitor nutritional status daily and consult cut off saw grader if indicated. 10. Implement neutropenic guidelines as needed. Outcome: Progressing Note: Evaluation of progress towards goal: Pt is afebrile at present time will monitor labs and vital signs Problem: Knowledge Deficit Goal: Patient/patient medical field representative demonstrates understanding of disease process, treatment plan, medications, and discharge instructions Description: INTERVENTIONS 1. Complete learning assessment and assess knowledge base 2. Provide teaching at level of understanding 3. Provide teaching via preferred learning method(s) Outcome: Progressing Note: Evaluation of progress towards goal: Pt is updated on treatment and medications . Will continue to educate Problem: Discharge Planning Goal: Discharge to post-acute care, other facility, or home with appropriate resources Description: Patient's goal is: INTERVENTIONS 1. Conduct assessment to determine patient/family and health care team treatment goals, and need for post-acute services based on payer coverage, community resources, and patient preferences, and barriers to discharge 2. Coordinate with Social work, Care Navigation, and Utilization Review to arrange appropriate level of services according to patient's needs based on patient preference and payer coverage in collaboration with the physician and health care team 3. Address psychosocial, clinical, and financial barriers to discharge as identified in assessment in conjunction with the patient/family and health care team 4. Consult appropriate ancillary services (i.e.. PT/OT/ST, etc) as needed 5. Communicate with and update the patient/family, physician, and health care team regarding progress on the discharge plan 6. Identify discharge learning needs (meds, wound care, etc). 7. Arrange for needed discharge transportation as appropriate Outcome: Progressing Note: Evaluation of progress towards goal: Pt not appropriate for discharge at this time. Will continue to assess [facility] 11-28-2024 Plan of care note Problem: Pain Goal: Patient goal is pain score less than 4, able to rest, and participant in treatment plan as appropriate Description: INTERVENTIONS: 1. Encourage patient or legal medical field representative to report early pain and ask for pain medicine when needed 2. Assess pain using appropriate pain scale and include the scale used when documenting 3. Administer analgesics based on type and severity of pain and evaluate response within appropriate time frame 4. Implement non-pharmacological measures as appropriate and evaluate response 5. Consider cultural and social influences on pain and pain management 6. Notify LIP if interventions ineffective or patient reports new pain 7. Monitor vital signs including pulse ox, end-tidal CO2 based on pain intervention 8. Reassess pain per policy 9. Teach patient or legal medical field representative interventions for comforting Note: Evaluation of progress towards goal: Pt denies any pain at this time. Continue to assess pt using pain scale and observe pt for any signs of discomfort. Problem: Safety Goal: Patient will be injury free during hospitalization Description: INTERVENTIONS: 1. Assess patient's risk for falls and implement fall prevention plan of care per policy 2. Provide and maintain a safe environment 3. Proper use of double Identifiers 4. Medication administration using the 5 rights 5. Hand hygiene 6. Specimens are labeled at the bedside 7. Instruct patient/ patient medical field representative about use of safety devices 8. Include patient/ patient medical field representative in decisions related to safety Note: Evaluation of progress towards goal: Pt has remained free from falls at this time. Problem: Infection Goal: Absence of infection during hospitalization Description: INTERVENTIONS 1. Assess and monitor for signs and symptoms of infection. 2. Monitor lab/diagnostic results. 3. Monitor all insertion sites i.e., indwelling lines, tubes and drains. 4. Monitor endotracheal (as able) and nasal secretions for changes in amount and color. 5. Administer medications as ordered. 6. Instruct and encourage patient and family to use good hand hygiene technique. 7. Identify and instruct patient/patient medical field representative in use of appropriate isolation precautions for identified infection/symptoms. 8. Provide and discuss with patient/patient medical field representative on educational MDRO sheet. 9. Encourage and monitor nutritional status daily and consult cut off saw grader if indicated. 10. Implement neutropenic guidelines as needed. Note: Evaluation of progress towards goal: Pt has remained free of infection at this time. Problem: Knowledge Deficit Goal: Patient/patient medical field representative demonstrates understanding of disease process, treatment plan, medications, and discharge instructions Description: INTERVENTIONS 1. Complete learning assessment and assess knowledge base 2. Provide teaching at level of understanding 3. Provide teaching via preferred learning method(s) Note: Evaluation of progress towards goal: Continuing to assess the patients knowledge on disease process, treatment plan, medications, and discharge instructions. Patient and family education are being addressed if concerns are presented. Problem: Discharge Planning Goal: Discharge to post-acute care, other facility, or home with appropriate resources Description: Patient's goal is: INTERVENTIONS 1. Conduct assessment to determine patient/family and health care team treatment goals, and need for post-acute services based on payer coverage, community resources, and patient preferences, and barriers to discharge 2. Coordinate with Social work, Care Navigation, and Utilization Review to arrange appropriate level of services according to patient's needs based on patient preference and payer coverage in collaboration with the physician and health care team 3. Address psychosocial, clinical, and financial barriers to discharge as identified in assessment in conjunction with the patient/family and health care team 4. Consult appropriate ancillary services (i.e.. PT/OT/ST, etc) as needed 5. Communicate with and update the patient/family, physician, and health care team regarding progress on the discharge plan 6. Identify discharge learning needs (meds, wound care, etc). 7. Arrange for needed discharge transportation as appropriate Note: Evaluation of progress towards goal: Pt plans to discharge home with no needs or resources requested at this time. Problem: Low Risk Fall Score Description: Guillen Fall Score of 0 - 24 or indicated by [facility] Assessment Goal: Patient should be free from fall Description: Interventions: 1. [place] to environment 2. Hourly rounds addressing the 4 P's (Pain, Positioning, Possessions, Potty) 3. Clear area of hazards (spills, clutter, electrical cords, unnecessary equipment) 4. Place equipment (bed & TV controls, call light, phone, urinal) within reach 5. Encourage patient to wear glasses and hearing aides as appropriate 6. Maintain bed in lowest position 7. Lock wheels on bed/wheelchair 8. Provide adequate lighting, including night light 9. Assess need for additional bedding, food/fluids, pain med's prior to sleep/routinely 10. Provide gripper slippers or personal non-skid footwear 11. Teach patient and patient medical field representative to maintain environment for safety and engage in all aspects of fall prevention program Note: Evaluation of progress towards goal: Pt has remained free from falls at this time. [facility] 11-28-2024 History and physical note [facility] Card[facility] - Electrophysiology [address] [place] [address] Admission H&P PATIENT NAME: Abi Victoria : 1955 AGE: 69 y.o. Date of Admission: 11/28/2024 Date of Consultation: 11/28/2024 Primary What Job Titles Mean: Dr. Balwinder Plascencia SUBJECTIVE HISTORY OF PRESENT ILLNESS: 69F w/ PMH CKD 3a, hypothyroidism, WPW s/p surgical ablation 1989, symptomatic paroxysmal AF/AFL s/p RF PVI/CTI and RA focal AT ablation 2017 w/ MDT ILR (at EOS), recurrent AT c/b RVR, NICM thought 2/2 tachycardia w/ EF recovery (BRANDYN 08/2021), s/p R-sided AT x2 ablation and redo RF CTI 03/28/21 w/ [id number] 3 on Xarelto 15 mg qday who presents for dofetilide loading. She was previously on flecainide 100 mg BID along with Toprol 50 mg qday but had recurrent AT vs atypical atrial flutter. PAST MEDICAL HISTORY Past Medical History: Diagnosis Date A-fib (CMS-HCC) Anemia Arrhythmia Atrial flutter 09/16/2018 Blood transfusion abn reaction or complication, no procedure mishap GERD (gastroesophageal reflux disease) History of open heart surgery Hypothyroidism Near syncope 2006 Severe dysplasia of cervix Dr. Mejia Vision problems SURGICAL HISTORY has a past surgical history that includes Maze Procedure; Cardiac electrophysiology procedure (N/A, 09/16/2018); Cardiac electrophysiology procedure (Left, 09/16/2018); Ablation colpoclesis; Hysterectomy; Oophorectomy; Total abdominal hysterectomy w/ bilateral salpingoophorectomy; Myringotomy; Cardioversion (02/26/2018); Angiography (12/24/2017); section (1977); section (1981); Esophagogastroduodenoscopy (N/A, 07/01/2019); Colonoscopy (N/A, 07/01/2019); and Cardiac electrophysiology procedure (N/A, 03/28/2021). SOCIAL HISTORY Social History Socioeconomic History Marital status: Spouse [...] on file Housing Instability: Not on file FAMILY HISTORY family history includes Atrial fibrillation in her mother; Cancer in her brother and mother; Diabetes in her father and mother; Heart disease in her brother and father; Lung cancer in her mother; Prostate cancer in her father. MEDICATIONS Prior to Admission medications Medication Sig Start Date End Date Taking? Authorizing Provider furosemide (LASIX) 20 mg tablet Take 1 tablet (20 mg total) by mouth daily as needed (lower extremity swelling). 07/22/24 Yes RAYO Suarez levothyroxine (SYNTHROID, LEVOTHROID) 125 MCG tablet Take 1 tablet (125 mcg total) by mouth in the morning. Yes Not In System Ref Prov flecainide (TAMBOCOR) 100 mg tablet Take 1 tablet (100 mg total) by mouth in the morning and 1 tablet (100 mg total) before bedtime. Patient not taking: Reported on 11/28/2024 08/30/24 RAYO Suarez liothyronine (CYTOMEL) 5 MCG tablet Take 2 tablets (10 mcg total) by mouth in the morning. Not In System Ref Prov metoprolol succinate XL (TOPROL XL) 50 mg 24 hr tablet Take 1 tablet (50 mg total) by mouth in the morning. 07/22/24 RAYO Suarez pantoprazole (PROTONIX) 40 mg EC tablet Take 1 tablet (40 mg total) by mouth in the morning. Not In System Ref Prov rivaroxaban (XARELTO) 15 mg tablet Take 1 tablet (15 mg total) by mouth in the morning. TAKE 1 TABLET (15 MG TOTAL) BY MOUTH IN THE MORNING. 07/22/24 RAYO Suarez sulfamethoxazole-trimethoprim (BACTRIM DS) 800-160 mg per tablet Take 1 tablet by mouth in the morning and 1 tablet before bedtime. Not In System Ref Prov ALLERGIES Patient has no known allergies. REVIEW OF SYSTEMS Constitutional: No fevers or chills, no recent weight gain or weight loss or fatigue Eyes: No visual changes or diplopia ENT: No headaches, hearing loss or vertigo Cardiovascular: Per HPI Respiratory: No cough or wheezing, no sputum production, no hematemesis Gastrointestinal: No abdominal pain, no nausea, vomiting, constipation, diarrhea Genitourinary: No dysuria, or hematuria Musculoskeletal: No gait disturbance, weakness or joint complaints Integumentary: No rash or pruritis Neurological: No headache, no prior CVA/TIA Psychiatric: No anxiety, or depression Endocrine: No temperature intolerance Hematologic/Lymphatic: No abnormal bruising or bleeding OBJECTIVE VITAL SIGNS: There were no vitals taken for this visit. ADMIT WEIGHT: BMI: There is no height or weight on file to calculate BMI. Admission PHYSICAL EXAM General appearance: Awake, alert, cooperative Head: Normocephalic, without obvious abnormality, atraumatic Eyes: Conjunctivae/corneas clear, EOMs intact Neck: No JVD, no appreciable carotid bruits, no masses Lungs: Clear to auscultation bilaterally, no rhonchi, rales or crackles, symmetrical breath sounds Heart: irregularly irregular rate and rhythm, normal S1 and S2, no rubs, murmurs, or gallops Abdomen: Soft, non-tender, bowel sounds normal, no organomegaly Extremities: No lower extremity edema, no cyanosis or clubbing Skin: Skin color, turgor normal, no rashes or lesions Neurologic: Grossly normal CBC: Results from last 7 days Lab Units 11/22/24 1046 WBC X10E9/L 6.8 HEMOGLOBIN g/dL 14.4 HEMATOCRIT % 43.0 MCV fL 94 PLATELETS X10E9/L 213 BMP: Results from last 7 days Lab Units 11/22/24 1046 SODIUM mmol/L 141 POTASSIUM mmol/L 4.7 CHLORIDE mmol/L 105 CO2 mmol/L 27 BUN mg/dL 28* CREATININE mg/dL 1.18* CALCIUM mg/dL 9.2 MAGNESIUM mg/dL 2.0 PT/INR: APTT: MAG: Results from last 7 days Lab Units 11/22/24 1046 MAGNESIUM mg/dL 2.0 D Dimer: Troponin I ProBNP Lipid Panel: No results found for: CHOL , TRIG , HDL , CHOLHDLR CURRENT MEDICATIONS: dofetilide, 250 mcg, oral, Q12H AZUL [START ON 11/29/2024] levothyroxine, 125 mcg, oral, Daily liothyronine, 10 mcg, oral, Daily metoprolol succinate XL, 50 mg, oral, Daily [START ON 11/29/2024] pantoprazole, 40 mg, oral, Daily [START ON 11/29/2024] rivaroxaban, 15 mg, oral, Daily sodium chloride, 3 mL, intravenous, Q12H AZUL CONTINUOUS INFUSIONS: dextrose 5 % in water, 100 mL/hr sodium chloride 0.9 %, 20 mL/hr CV HISTORY: ECHO: No results found. STRESS: No results found. HOLTER: No results found. CARDIAC CATH: No results found. CXR: @CXR24@ ASSESSMENT AND PLAN Admission for high risk antiarrhythmic initiation Persistent AF/atypical and typical AFL, [id number] 3 on Xarelto 15 mg qday S/p RF PVI/CT, RA focal AT ablation 2017 S/p RA AT and redo CTI 03/2021 Hx WPW s/p surgical ablation 1989 CKD stage 3a Hypothyroidism Will start dofetilide 250 mcg BID first dose today at 6pm, serial EKGs 2 hours after each dose. Patient will remain inpatient for 6 doses. Continue Xarelto 15 mg qday, continue other home meds. Balwinder Plascencia MD/ONUR, [facility] Cardiac Electrophysiology This note was completed using a voice low heel builder system. Every effort was made to ensure accuracy. However, inadvertent computerized low heel builder errors may be present. [facility] 11-28-2024 History and physical note [facility] Cardiology - Electrophysiology [address] [place] [address] Admission H&P PATIENT NAME: Abi Victoria : 1955 AGE: 69 y.o. Date of Admission: 11/28/2024 Date of Consultation: 11/28/2024 Primary What Job Titles Mean: Dr. Balwinder Plascencia SUBJECTIVE HISTORY OF PRESENT ILLNESS: 69F w/ PMH CKD 3a, hypothyroidism, WPW s/p surgical ablation 1989, symptomatic paroxysmal AF/AFL s/p RF PVI/CTI and RA focal AT ablation 2017 w/ MDT ILR (at EOS), recurrent AT c/b RVR, NICM thought 2/2 tachycardia w/ EF recovery (BRANDYN 08/2021), s/p R-sided AT x2 ablation and redo RF CTI 03/28/21 w/ [id number] 3 on Xarelto 15 mg qday who presents for dofetilide loading. She was previously on flecainide 100 mg BID along with Toprol 50 mg qday but had recurrent AT vs atypical atrial flutter. PAST MEDICAL HISTORY Past Medical History: Diagnosis Date A-fib ([facility]) Anemia Arrhythmia Atrial flutter 09/16/2018 Blood transfusion abn reaction or complication, no procedure mishap GERD (gastroesophageal reflux disease) History of open heart surgery Hypothyroidism Near syncope 2006 Severe dysplasia of cervix Dr. Mejia Vision problems SURGICAL HISTORY has a past surgical history that includes Maze Procedure; Cardiac electrophysiology procedure (N/A, 09/16/2018); Cardiac electrophysiology procedure (Left, 09/16/2018); Ablation colpoclesis; Hysterectomy; Oophorectomy; Total abdominal hysterectomy w/ bilateral salpingoophorectomy; Myringotomy; Cardioversion (02/26/2018); Angiography (12/24/2017); section (1977); section (1981); Esophagogastroduodenoscopy (N/A, 07/01/2019); Colonoscopy (N/A, 07/01/2019); and Cardiac electrophysiology procedure (N/A, 03/28/2021). SOCIAL HISTORY Social History Socioeconomic History Marital status: Spouse [...] on file Housing Instability: Not on file FAMILY HISTORY family history includes Atrial fibrillation in her mother; Cancer in her brother and mother; Diabetes in her father and mother; Heart disease in her brother and father; Lung cancer in her mother; Prostate cancer in her father. MEDICATIONS Prior to Admission medications Medication Sig Start Date End Date Taking? Authorizing Provider furosemide (LASIX) 20 mg tablet Take 1 tablet (20 mg total) by mouth daily as needed (lower extremity swelling). 07/22/24 Yes RAYO Suarez levothyroxine (SYNTHROID, LEVOTHROID) 125 MCG tablet Take 1 tablet (125 mcg total) by mouth in the morning. Yes Not In System Ref Prov flecainide (TAMBOCOR) 100 mg tablet Take 1 tablet (100 mg total) by mouth in the morning and 1 tablet (100 mg total) before bedtime. Patient not taking: Reported on 11/28/2024 08/30/24 RAYO Suarez liothyronine (CYTOMEL) 5 MCG tablet Take 2 tablets (10 mcg total) by mouth in the morning. Not In System Ref Prov metoprolol succinate XL (TOPROL XL) 50 mg 24 hr tablet Take 1 tablet (50 mg total) by mouth in the morning. 07/22/24 RAYO Suarez pantoprazole (PROTONIX) 40 mg EC tablet Take 1 tablet (40 mg total) by mouth in the morning. Not In System Ref Prov rivaroxaban (XARELTO) 15 mg tablet Take 1 tablet (15 mg total) by mouth in the morning. TAKE 1 TABLET (15 MG TOTAL) BY MOUTH IN THE MORNING. 07/22/24 RAYO Suarez sulfamethoxazole-trimethoprim (BACTRIM DS) 800-160 mg per tablet Take 1 tablet by mouth in the morning and 1 tablet before bedtime. Not In System Ref Prov ALLERGIES Patient has no known allergies. REVIEW OF SYSTEMS Constitutional: No fevers or chills, no recent weight gain or weight loss or fatigue Eyes: No visual changes or diplopia ENT: No headaches, hearing loss or vertigo Cardiovascular: Per HPI Respiratory: No cough or wheezing, no sputum production, no hematemesis Gastrointestinal: No abdominal pain, no nausea, vomiting, constipation, diarrhea Genitourinary: No dysuria, or hematuria Musculoskeletal: No gait disturbance, weakness or joint complaints Integumentary: No rash or pruritis Neurological: No headache, no prior CVA/TIA Psychiatric: No anxiety, or depression Endocrine: No temperature intolerance Hematologic/Lymphatic: No abnormal bruising or bleeding OBJECTIVE VITAL SIGNS: There were no vitals taken for this visit. ADMIT WEIGHT: BMI: There is no height or weight on file to calculate BMI. Admission PHYSICAL EXAM General appearance: Awake, alert, cooperative Head: Normocephalic, without obvious abnormality, atraumatic Eyes: Conjunctivae/corneas clear, EOMs intact Neck: No JVD, no appreciable carotid bruits, no masses Lungs: Clear to auscultation bilaterally, no rhonchi, rales or crackles, symmetrical breath sounds Heart: irregularly irregular rate and rhythm, normal S1 and S2, no rubs, murmurs, or gallops Abdomen: Soft, non-tender, bowel sounds normal, no organomegaly Extremities: No lower extremity edema, no cyanosis or clubbing Skin: Skin color, turgor normal, no rashes or lesions Neurologic: Grossly normal CBC: Results from last 7 days Lab Units 11/22/24 1046 WBC X10E9/L 6.8 HEMOGLOBIN g/dL 14.4 HEMATOCRIT % 43.0 MCV fL 94 PLATELETS X10E9/L 213 BMP: Results from last 7 days Lab Units 11/22/24 1046 SODIUM mmol/L 141 POTASSIUM mmol/L 4.7 CHLORIDE mmol/L 105 CO2 mmol/L 27 BUN mg/dL 28* CREATININE mg/dL 1.18* CALCIUM mg/dL 9.2 MAGNESIUM mg/dL 2.0 PT/INR: APTT: MAG: Results from last 7 days Lab Units 11/22/24 1046 MAGNESIUM mg/dL 2.0 D Dimer: Troponin I ProBNP Lipid Panel: No results found for: CHOL , TRIG , HDL , CHOLHDLR CURRENT MEDICATIONS: dofetilide, 250 mcg, oral, Q12H AZUL [START ON 11/29/2024] levothyroxine, 125 mcg, oral, Daily liothyronine, 10 mcg, oral, Daily metoprolol succinate XL, 50 mg, oral, Daily [START ON 11/29/2024] pantoprazole, 40 mg, oral, Daily [START ON 11/29/2024] rivaroxaban, 15 mg, oral, Daily sodium chloride, 3 mL, intravenous, Q12H AZUL CONTINUOUS INFUSIONS: dextrose 5 % in water, 100 mL/hr sodium chloride 0.9 %, 20 mL/hr CV HISTORY: ECHO: No results found. STRESS: No results found. HOLTER: No results found. CARDIAC CATH: No results found. CXR: @CXR24@ ASSESSMENT AND PLAN Admission for high risk antiarrhythmic initiation Persistent AF/atypical and typical AFL, [id number] 3 on Xarelto 15 mg qday S/p RF PVI/CT, RA focal AT ablation 2017 S/p RA AT and redo CTI 03/2021 Hx WPW s/p surgical ablation 1989 CKD stage 3a Hypothyroidism Will start dofetilide 250 mcg BID first dose today at 6pm, serial EKGs 2 hours after each dose. Patient will remain inpatient for 6 doses. Continue Xarelto 15 mg qday, continue other home meds. Balwinder Plascencia MD/ONUR, [facility] Cardiac Electrophysiology This note was completed using a voice low heel builder system. Every effort was made to ensure accuracy. However, inadvertent computerized low heel builder errors may be present. documented in this encounter [facility] 11-21-2024 Miscellaneous Notes Called and LM to pt to provide reminder call for Tikosyn loading on 11/28 Advised pt to call with any questions or to review instructions, VM was not identified Pt will need labs prior as well as to stop flecainide on 11/25 documented in this encounter [facility] 11-21-2024 Telephone encounter Note Called and LM to pt to provide reminder call for Tikosyn loading on 11/28 Advised pt to call with any questions or to review instructions, VM was not identified Pt will need labs prior as well as to stop flecainide on 11/25 [facility] 10-28-2024 Miscellaneous Notes Images from the original note were not included. [facility]: Admission for dofetilide/Tikosyn Loading Physician: Dr. Balwinder Plascencia Date of Admission: 11/28 You will be called by [facility] the day of your admission for what time to arrive and which entrance Hospital address: [facility] [address] [place] [address] Other instructions before your admission: STOP FLECAINIDE 2/7 Complete lab work on or after 2/3 IF YOU TAKE A BLOOD THINNER: DO NOT MISS ANY DOSES. Please call our office if you miss a dose of your blood thinner before your admission! [facility] Cardiology EP Medication Loading Instructions [...] but not the time, for your admission. [facility] Access admission department will call you sometime during the day of your admission as soon as your room is ready. You will be given your room number and told which entrance you will register at. Please bring your driver examiner's license or photo ID and insurance cards with you. If you do not receive a call by the following morning, please contact [facility] [phone] or our office at [phone] and choose option 7 for the EP nurses. Please follow these instructions provided to you by the Surgery nurses. [facility] [place] instructions can be incorrect and provide the wrong information about your admission. If you are unsure or need clarification, please call the Surgery office [phone]. You may eat or drink normally and [...] your medications, please call our office at [phone]. Cimetidine alone (Tagamet, Tagamet HB, over the counter or prescription) or in the combination medication Guanendrux Verapamil (Calan, Calan SR, Covera-HS, Isoptin, Isoptin SR, Verelan, Verelan PM) or in the combination medication Tarka Ketoconazole (Nizoral, Xolegel, Extina) Trimethoprim alone (Proloprim, Trimpex) or in a combination medication (Abactrim, Bactrim, Septra, Sulfatrim, Cotrimoxazole) Prochlorperazine (Compazine, [place]) Megestrol (Megace) Dolutegravir (Tivicay), or in the combination drug Dovato Hydrochlorothiazide (HCTZ) alone or in a combination medication (Esidrix, Ezide, Hydrodiuril, [place]-Par, Microzide or Ortic) Cisapride (Propulsid). Itraconazole (Sporanox). [...] us any time you have questions at [phone] or and choose the option for the nurses. documented in this encounter [facility] 10-28-2024 Telephone encounter Note Images from the original note were not included. [facility] Cardiology: Admission for dofetilide/Tikosyn Loading Physician: Dr. Balwinder Plascencia Date of Admission: 11/28 You will be called by [facility] the day of your admission for what time to arrive and which entrance Hospital address: [facility] [address] [facility] [place] [address] Other instructions before your admission: STOP FLECAINIDE 2/7 Complete lab work on or after 2/3 IF YOU TAKE A BLOOD THINNER: DO NOT MISS ANY DOSES. Please call our office if you miss a dose of your blood thinner before your admission! [facility] Cardiology EP Medication Loading Instructions [...] but not the time, for your admission. [facility] Access admission department will call you sometime during the day of your admission as soon as your room is ready. You will be given your room number and told which entrance you will register at. Please bring your driver examiner's license or photo ID and insurance cards with you. If you do not receive a call by the following morning, please contact [facility] [phone] or our office at [phone] and choose option 7 for the EP nurses. Please follow these instructions provided to you by the Surgery nurses. The [facility] instructions can be incorrect and provide the wrong information about your admission. If you are unsure or need clarification, please call the Surgery office [phone]. You may eat or drink normally and [...] your medications, please call our office at [phone]. Cimetidine alone (Tagamet, Tagamet HB, over the counter or prescription) or in the combination medication Guanendrux Verapamil (Calan, Calan SR, Covera-HS, Isoptin, Isoptin SR, Verelan, Verelan PM) or in the combination medication Tarka Ketoconazole (Nizoral, Xolegel, Extina) Trimethoprim alone (Proloprim, Trimpex) or in a combination medication (Abactrim, Bactrim, Septra, Sulfatrim, Cotrimoxazole) Prochlorperazine (Compazine, [place]) Megestrol (Megace) Dolutegravir (Tivicay), or in the combination drug Dovato Hydrochlorothiazide (HCTZ) alone or in a combination medication (Esidrix, Ezide, Hydrodiuril, [place]-Par, Microzide or Ortic) Cisapride (Propulsid). Itraconazole (Sporanox). [...] us any time you have questions at [phone] or and choose the option for the nurses. [facility] 10-28-2024 Miscellaneous Notes Received orders for medication loading, pt is agreeable to 11/28. Pt education to be sent to home address. documented in this encounter [facility] 10-28-2024 Telephone encounter Note Received orders for medication loading, pt is agreeable to 11/28. Pt education to be sent to home address. [facility] 10-26-2024 History of Present illness Narrative Abi [...] ablation and redo RF CTI 03/28/21 w/ [id number] 3 on Xarelto 15 mg qday who presents to EP clinic at [place] for follow-up. She is currently on flecainide [...] 09/16/2018 Performed by Danilo Campuzano DO at [facility] (EP) ANGIOGRAPHY 12/24/2017 Coronary; Dr. Rocha Atrial tachycardia x 2. CTI redo - SHAYY MARAVILLA ILR In situ N/A 03/28/2021 Performed by Balwinder Plascencia MD at [facility] (EP) CARDIOVERSION 02/26/2018 Dr. Membreno SECTION 1978 SECTION 1982 COLONOSCOPY N/A 07/01/2019 Performed by Harish Castro MD at [facility] EGD N/A 07/01/2019 Performed by Harish Castro MD at [facility] HYSTERECTOMY Loop recorder implant Left 09/16/2018 Performed by Danilo Campuzano DO at [facility] (EP) MAZE PROCEDURE via open heart surgery [...] before bedtime. There are no discontinued medications. [id number] Score: 2 2.2% Stroke risk per year, 2.9% risk of stroke/TIA/systemic embolism IMPRESSIONS/PLAN 1. Paroxysmal atrial fibrillation (CMS-HCC) - POCT EKG Atrial tachycardia/atypical atrial flutter: [...] Referring Physician: Lacey Marion MD [address] [place] [address] documented in this encounter [facility] 10-25-2024 Miscellaneous Notes Left message for patient to remind them to bring their most current medication list with them to their appointment. documented in this encounter [facility] 10-25-2024 Telephone encounter Note Left message for patient to remind them to bring their most current medication list with them to their appointment. [facility] 08-08-2024 Miscellaneous Notes Rec'd urgent notification from [employer] showing new onset of aflutter, HR 121 from 08/07/2024 @19:10, pt reports taking medication at time of occurrence. Patient has hx of afib/ aflutter; ordered to determine if chronic or PAF. Pt is on Xarelto. Will continue to monitor. Strips placed to be scanned into the chart. documented in this encounter [facility] 08-08-2024 Telephone encounter Note Rec'd urgent notification from [employer] showing new onset of aflutter, HR 121 from 08/07/2024 @19:10, pt reports taking medication at time of occurrence. Patient has hx of afib/ aflutter; ordered to determine if chronic or PAF. Pt is on Xarelto. Will continue to monitor. Strips placed to be scanned into the chart. [facility] 07-22-2024 History of Present illness Narrative Abi Victoria Date of visit: 07/22/2024 Date of : 1955 Age: 69 y.o. Patient Active Problem List Diagnosis Paroxysmal atrial fibrillation ([facility]) Atrial flutter ([facility]) Tricuspid valve regurgitation Mitral valve regurgitation Pleural effusion Multiple closed fractures of cervical vertebrae ([facility]-H[facility]) Status post placement of implantable loop recorder Iron deficiency anemia due to chronic blood loss Occult blood positive stool Antral gastritis Diverticulosis large intestine w/o perforation or abscess w/o bleeding Cardiomyopathy ([facility]) Other fatigue No Known Allergies Current Outpatient [...] 09/16/2018 Performed by Danilo Campuzano DO at [facility] (EP) ANGIOGRAPHY 12/24/2017 Coronary; Dr. Rocha Atrial tachycardia x 2. CTI redo - SHAYY MARAVILLA ILR In situ N/A 03/28/2021 Performed by Balwinder Plascencia MD at [facility] (EP) CARDIOVERSION 02/26/2018 Dr. Membreno SECTION 1978 SECTION 1982 COLONOSCOPY N/A 07/01/2019 Performed by Harish Castro MD at [facility] EGD N/A 07/01/2019 Performed by Harish Castro MD at [facility] HYSTERECTOMY Loop recorder implant Left 09/16/2018 Performed by Danilo Campuzano DO at [facility] (EP) MAZE PROCEDURE via open heart surgery [...] XL) 50 mg 24 hr tablet Reorder [id number] Score: 2 2.2% Stroke risk per year, 2.9% risk of stroke/TIA/systemic embolism IMPRESSIONS/PLAN 1. Paroxysmal atrial fibrillation ([facility]) - POCT EKG - Wireless Telemetry (In [...] 90 tablet; Refill: 3 2. Atrial flutter ([facility] - POCT EKG - Wireless Telemetry (In [...] She had lab work done recently at [facility]. Will obtain those results to confirm dosing. She will need prescription refill. Monitor to complete and if persistent arrhythmia may warrant cardioversion that was briefly discuss Tentative follow-up 3 months at the [place] office Patient seen while Dr. Kindra Honeycutt was immediately available in the office suite TODAYS ORDERS Orders Placed This Encounter Procedures Wireless Telemetry (In Office) POCT EKG FOLLOW UP Return in about 3 months (around 10/22/2024) for Next scheduled follow up . PCP: LACEY MARION MD Referring Physician: [place] [address] RAYO Suarez 07/22/24 [id number] documented in this encounter [facility] 06-25-2024 Miscellaneous Notes Last OV: 07/04/23 Lab work will need completed. Patient to complete prior to upcomming appt on 07/22/24. Patient requests lab orders to be faxed to [facility]. Fax #: [phone] Images from the original note were not included. documented in this encounter [facility] 06-25-2024 Telephone encounter Note Last OV: 07/04/23 Lab work will need completed. Patient to complete prior to upcomming appt on 07/22/24. Patient requests lab orders to be faxed to [facility]. Fax #: [phone] [facility] 06-25-2024 Telephone encounter Note Images from the original note were not included. [facility] 11-21-2022 Note PROCEDURE: XR TOES R T [...] by: ILANA PEREZ Date: 2022-11-21 13:01 [facility] Evaluation note Diagnosis Paroxysmal atrial fibrillation (CMS-HCC)- Primary Atrial fibrillation [facility] Diagnosis Paroxysmal atrial fibrillation (CMS-HCC)- Primary Atrial fibrillation Atrial flutter (CMS-HCC) [facility] Diagnosis Atrial fibrillation (CMS-HCC)- Primary Atrial fibrillation A-fib (CMS-HCC) Atrial fibrillation [facility] Diagnosis Paroxysmal atrial fibrillation (CMS-HCC)- Primary Atrial fibrillation Atrial flutter (CMS-HCC) Status post placement of implantable loop recorder [facility] Diagnosis Paroxysmal atrial fibrillation (CMS-HCC)- Primary Atrial fibrillation Atrial flutter (CMS-HCC) [facility] filedocumented in this [facility] filedocumented in this encounter [facility] filedocumented in this encounter [facility] filedocumented in this encounter [facility] filedocumented in this encounter [facility] (n[facility]ative)* Misc (Routine) - Pending Review Specialty Diagnoses / Procedures Referred By Jeffrey arguelles Referred To Contact Procedures Discharge Follow-Up Adryan Long APRN-CNP [address] [place] [address] Phone: tel: fax: Referral ID Status Reason Start Date Expiration Date V isits Requested Visits Authorized [id number] Pending Review 12/01/2024 12/01/2025 1 1 [facility] Auth/Cert Specialty Diagnoses / Procedures Referred By Jeffrey arguelles Referred To Contact Diagnoses Balwinder Dove MD [address] [place] [address] Phone: tel: fax: Referral ID Status Reason Start Date Expiration Date Visits Re quested Visits Authorized [id number] 1 1 [facility] Summary Purpose Family History No Family History Records FoundNo Family History Records FoundNo Family History Records FoundNo Family History Records FoundNo Family History Records Found Advance Directives Date Activated Date Inactivated Comments 10/17/2018 5:08 AM 10/18/2018 6:37 PM Date Activated Date Inactivated Comments 09/22/2018 8:35 AM 09/24/2018 3:13 PM Date Activated Date Inactivated Comments 09/16/2018 5:37 PM 09/17/2018 12:42 PM Date Activated Date Inactivated Comments 11/28/2024 3:33 PM Date Activated Date Inactivated Comments 10/17/2018 [...] 12:42 PM Date Activated Date Inactivated Comments 11/28/2024 3:33 PM 12/01/2024 1:20 PM Date Activated Date Inactivated Comments 10/17/2018 5:08 AM 10/18/2018 6:37 PM Date Activated Date Inactivated Comments 09/22/2018 8:35 AM 09/24/2018 3:13 PM Date Activated Date Inactivated Comments 09/16/2018 5:37 PM 09/17/2018 12:42 PM Reason for Referral Specialty Diagnoses / Procedures Referred By Jeffrey arguelles Referred To Contact Diagnoses Paroxysmal atrial fibrillation (CMS-HCC) Atrial flutter (CMS-HCC) Procedures Wireless Telemetry (In Office) Adryan Long, TEASEL GIG OPERATOR-LINEN MANAGER [address] [place] [address] Referral ID Status Reason Start Date Expiration Date V isits Requested Visits Authorized [id number] Pending Review 07/22/2024 07/22/2025 1 1 Additional Source Comments INFORMATION SOURCE (unrecogn ized section and content) DATE CREATED AUTHOR 04/09/2018 [facility] DATE CREATED AUTHOR AUTHOR'S ORGANIZ ATION 04/20/2021 [facility] DATE CREATED AUTHOR AUTHOR'S ORGANIZ ATION 11/23/2022 [facility] DATE CREATED AUTHOR AUTHOR'S ORGANIZ ATION 12/02/2024 [facility] DATE CREATED AUTHOR AUTHOR'S ORGANIZ ATION 12/12/2024 [facility] Care Teams (unrecognized sec tion and content) Undergraduate Advisor Relationship Specialty Start Date End Date Lacey Marion MD PCP - General 09/08/18 Undergraduate Advisor Relationship Specialty Start Date End Date Lacey Marion MD PCP - General 09/08/18 Undergraduate Advisor Relationship Specialty Start Date End Date Lacey Marion MD PCP - General 09/08/18 Undergraduate Advisor Relationship Specialty Start Date End Date Lacey Marion MD PCP - General 09/08/18 Undergraduate Advisor Relationship Specialty Start Date End Date Lacey Marion MD PCP - General 09/08/18 Undergraduate Advisor Relationship Specialty Start Date End Date Lacey Marion MD PCP - General 09/08/18 Undergraduate Advisor Relationship Specialty Start Date End Date Lacey Marion MD PCP - General 09/08/18 Undergraduate Advisor Relationship Specialty Start Date End Date Lacey Marion MD PCP - General 12/10/24 Reason for Visit (unrecogniz ed section and content) Reason Comments Follow-up 3month f/u-ls SER-14 day EM-sched with pt Reason Onset Date Comments EP Surgery (PT Education) 10/28/2024 Reason Onset Date Comments EP Surgery (Med Loading) 10/28/2024 Reason Comments Follow-up ov-13 month f/u Atrial Fibrillation Palpitations Edema Abdominal region Reason Comments Med Refill Reason Onset Date Comments Biotel strip 08/08/2024 Reason Onset Date Comments REMINDER CALL - TIKOSYN LOADING 11/21/2024 Reason Onset Date Comments s/p cardioversion 12/01/2024 Scheduled Active and Recently Administ ered Medications (unrecognized section and content) Medication Order 11/29/2024 11/30/2024 12/01/2024 dofetilide (TIKOSYN) capsule 250 mcg 250 mcg, oral, Every 12 hours scheduled, First dose on Thu11/28/24 at 1800 0608 (Given - Provider: Murali Andrews, RN)1801 (Given - Provider: Beth Kurtz, RN) 0601 (Given - Provider: Murali Andrews RN)1802 (Given - Provider: Vesna Jones RN) 0621 (Given - Provider: Flash Wood, RN)0800 (Canceled Entry - Provider: Flash Wood, RN - Comment: moved from 0600 to 0800, held per ndiaye until EP sees pt for long QTC)1800 (Due) levothyroxine (SYNTHROID, LEVOTHROID) tablet 125 mcg 125 mcg, oral, Daily, First dose (after last modification) on Thu11/29/24 at 0600, Look-alike/sound-alike medication. Verify indication for use Administer on empty stomach at least ONE hour before or TWO hours after food Enteral Feeding: For 7 days or less of tube feeding- do NOT hold tube feedings, after 7 days- hold tube feedings ONE hour before and ONE hour after administration DOES NOT APPLY TO NEONATES Monitor thyroid function tests weekly 607 (Given - Provider: Murali Andrews RN) 600 (Given - Provider: Murali Andrews, RN) 621 (Given - Provider: Flash Wood, RN) liothyronine (CYTOMEL) tablet 10 mcg (CANCELED) 10 mcg, oral, Daily, First dose (after last modification) on Thu11/29/24 at 0900, Look-alike/sound-alike medication - verify indication for use. 616 (Given - Provider: Murali Andrews RN - Comment: pt take early in AM before breakfast) liothyronine (CYTOMEL) tablet 10 mcg 10 mcg, oral, Every morning before breakfast, First dose (after last modification) on Thu11/30/24 at 0700, Look-alike/sound-alike medication - verify indication for use. 600 (Given - Provider: Murali Andrews RN) 620 (Given - Provider: Flash Wood RN) metoprolol succinate XL (TOPROL XL) 24 hr tablet 25 mg (COMPLETED) 25 mg, oral, Once, On Thu11/29/24 at 0915, For 1 dose, Look-alike/sound-alike medication - verify indication for use. Do not crush or chew. 918 (Given - Provider: Beth Kurtz RN) metoprolol succinate XL (TOPROL XL) 24 hr tablet 25 mg 25 mg, oral, 2 times daily, First dose (after last modification) on Thu11/29/24 at 1900, Administer for systolic blood pressure greater than 95 and perform recheck Q 5 minutes x3 if needed Look-alike/sound-alike medication - verify indication for use. Do not crush or chew. 2036 (Given - Provider: Murali Andrews, RN) 750 (Given - Provider: Vesna Jones RN)2123 (Given - Provider: Flash Wood, MIKEY) 918 (Given - Provider: Mila Bryant RN)1899 (Due) pantoprazole (PROTONIX) EC tablet 40 mg 40 mg, oral, Daily, First dose on Thu11/29/24 at 0000, Look-alike/sound-alike medication - verify indication for use. If patient is receiving enteral feeding, consider alternative PPI or continue IV pantoprazole until the delayed-release tablet can be taken orally, Indication: GERD 0608 (Given - Provider: Murali Andrews RN) 06 (Given - Provider: Murali Andrews RN) 06 (Given - Provider: Flash Wood, RN) rivaroxaban (XARELTO) tablet 15 mg 15 mg, oral, Nightly, First dose (after last modification) on Thu11/29/24 at 0030, Take/Give with food., Indication: Nonvalvular Atrial Fibrillation (NVAF) 0105 (Given - Provider: Murali Andrews RN)2036 (Given - Provider: Murali Andrews RN) 2123 (Given - Provider: Flash Wood, RN) 2199 (Due) sodium chloride 0.9 % flush 3 mL 3 mL, intravenous, Every 12 hours scheduled, First dose on Thu11/28/24 at 2100 0921 (Given - Provider: Beth Kurtz RN)2099 (Given - Provider: Murali Andrews RN) 0900 (Canceled Entry - Provider: Vesna Jones RN)2123 (Given - Provider: Flash Wood, RN) 0900 (Due)2100 (Due) PRN Medication Order 11/29/2024 11/30/2024 12/01/2024 dextrose (GLUTOSE) 40 % gel 15 g 15 g, oral, As needed, low blood sugar, blood glucose less than 70 mg/dL, Starting on Thu11/28/24 at 1531, If patient conscious and taking PO. If blood glucose is not greater than 70 mg/dL after initial treatment, repeat treatment. dextrose 50 % in water (D50W) 50% solution 25 mL 25 mL, intravenous, As needed, low blood sugar, blood glucose less than 70 mg/dL and unconscious or NPO with IV access, Starting on Thu11/28/24 at 1531, Push over 1-3 minutes STAT. If conscious and not NPO, immediately follow with meal tray or high protein (7 grams) snack if tray not available. If NPO, initiate 5% dextrose in water at 100 mL/hr and contact prescriber for additional orders. If blood glucose is not greater than 70 mg/dL after initial treatment, repeat treatment. VESICANT (RED) Warning: HYPERTONIC solution. furosemide (LASIX) tablet 20 mg 20 mg, oral, Daily PRN, lower extremity swelling, Starting on Thu11/28/24 at 1531, Look-alike/sound-alike medication - verify indication for use. glucagon HCL injection 1 mg 1 mg, intramuscular, As needed, low blood sugar, blood glucose less than 70 mg/dL and unconscious or NPO without IV access., Starting on Thu11/28/24 at 1531, If conscious and not NPO, immediately follow with meal tray or high protein (7Grams) snack if tray not available. If NPO, initiate IV 5% Dextrose/Water at 100 mL/hr and contact prescriber for additional orders. If blood glucose is not greater than 70 mg/dL after initial treatment, repeat treatment. magnesium sulfate IVPB 2000 mg/50 mL in iso-osmotic water (40 mg/mL premix) 2,000 mg, intravenous, at 25 mL/hr, Administer over 120 Minutes, As needed, Magnesium level 1.7 to 1.9 mg/dL, or Ionized Magnesium level 0.45 to 0.5 mmol/L., Starting on Thu11/29/24 at 0754, Recheck magnesium level 4 hours after infusion complete. With each magnesium result continue the replacement orders as needed. 0924 (New Bag - Provider: Beth Kurtz RN)0925 (Rate/Dose Verify - Provider: Beth Kurtz RN)1035 (Paused - Provider: Beth Kurtz RN)1040 (Restarted - Provider: Beth Kurtz, MIKEY)1056 (Paused - Provider: Beth Kurtz, MIKEY)1059 (Restarted - Provider: Beth Kurtz, RN)1124 (Stop Bag - Provider: Beth Kurtz, RN) magnesium sulfate IVPB 4000 mg/100 mL in iso-osmotic water (40 mg/mL premix) 4,000 mg, intravenous, at 25 mL/hr, Administer over 240 Minutes, As needed, Magnesium level 1.6 mg/dL or less, or Ionized Magnesium level 0.44 mmol/L or less, Starting on Thu11/29/24 at 0754, Recheck magnesium level 4 hours after infusion complete. With each magnesium result continue the replacement orders as needed. potassium chloride (K-TAB,KLOR-CON) CR tablet 30-50 mEq(Linked Group 1) 30-50 mEq, oral, As needed, Potassium Supplementation, Starting on Thu11/29/24 at 0754, Progress to oral potassium replacement when patient tolerating oral intake. If dose administered, recheck potassium level 4 hours after last dose. For potassium level 3.4 to 3.8 mmol/L and GFR 30 mL/min or greater=30 mEq. For potassium level 3.1 to 3.3 mmol/L and GFR 30 mL/min or greater=40 mEq. For potassium level 3 mmol/L or less and GFR 30 mL/min or greater=50 mEq. Do not crush or chew. potassium chloride (KAYCIEL) 20 mEq/15 mL solution 30-50 mEq(Linked Group 1) 30-50 mEq, oral, As needed, Potassium Supplementation, Starting on Thu11/29/24 at 0754, Progress to oral potassium replacement when patient tolerating oral intake. If dose administered, recheck potassium level 4 hours after last dose. For potassium level 3.4 to 3.8 mmol/L and GFR 30 mL/min or greater=30 mEq. For potassium level 3.1 to 3.3 mmol/L and GFR 30 mL/min or greater=40 mEq. For potassium level 3 mmol/L or less and GFR 30 mL/min or greater=50 mEq. Must dilute before use - Mix in 3-8 ounces of water or juice before administration When administering in feeding tube, flush before and after per policy and monitor potassium levels potassium chloride IVPB 10 mEq/100 mL in water (0.1 mEq/mL premix)(Linked Group 1) 10 mEq, intravenous, at 100 mL/hr, Administer over 60 Minutes, As needed, POTASSIUM REPLACEMENT, Starting on Thu11/29/24 at 0754, IV if unable to use oral/enteral with the current dosing strategies Potassium level 3 mmol/L or less administer Potassium Chloride 50 mEq Potassium level 3.1 to 3.3 mmol/L administer Potassium Chloride 40 mEq Potassium level 3.4 to 3.8 mmol/L administer Potassium Chloride 30 mEq Use central line when applicable. Recheck potassium level 1 hour after total IVPB infusion complete, With each potassium result continue the replacement orders as needed VESICANT (YELLOW) Infuse each 10 mEq over a minimum of 1 hour. propofol (DIPRIVAN) injection (COMPLETED) intravenous, Code/trauma/sedation medication, Starting on Thu11/30/24 at 1019, Intra-Procedure (CV) 1019 (Given - Provider: Laura Gooden RN) sodium chloride 0.9 % flush 3 mL 3 mL, intravenous, As needed, line care, before and after each intermittent use, Starting on Thu11/28/24 at 1531 sodium chloride 0.9 % flush bag 25 mL, intravenous, at 100 mL/hr, Administer over 15 Minutes, As needed, line care, line care after IVPB administration, Starting on Thu11/28/24 at 1531 sodium chloride 0.9 % infusion () 20 mL/hr, intravenous, Continuous PRN, to maintain patency of lines, Starting on Thu11/28/24 at 1531, For 1 day 0923 (New Bag - Provider: Beth Kurtz, RN)0924 (Paused - Provider: Beth Kurtz, RN)1145 (Restarted - Provider: Beth Kurtz, MIKEY)1214 (Stop Bag - Provider: Beth Kurtz, MIKEY) Linked Groups Order Group 1: potassium chloride (K-TAB,KLOR-CON) CR tablet 30-50 mEqJump to med 30-50 mEq, oral, As needed, Potassium Supplementation, Starting on Thu11/29/24 at 0754, Progress to oral potassium replacement when patient tolerating oral intake. If dose administered, recheck potassium level 4 hours after last dose. For potassium level 3.4 to 3.8 mmol/L and GFR 30 mL/min or greater=30 mEq. For potassium level 3.1 to 3.3 mmol/L and GFR 30 mL/min or greater=40 mEq. For potassium level 3 mmol/L or less and GFR 30 mL/min or greater=50 mEq. Do not crush or chew. Or potassium chloride (KAYCIEL) 20 mEq/15 mL solution 30-50 mEqJump to med 30-50 mEq, oral, As needed, Potassium Supplementation, Starting on Thu11/29/24 at 0754, Progress to oral potassium replacement when patient tolerating oral intake. If dose administered, recheck potassium level 4 hours after last dose. For potassium level 3.4 to 3.8 mmol/L and GFR 30 mL/min or greater=30 mEq. For potassium level 3.1 to 3.3 mmol/L and GFR 30 mL/min or greater=40 mEq. For potassium level 3 mmol/L or less and GFR 30 mL/min or greater=50 mEq. Must dilute before use - Mix in 3-8 ounces of water or juice before administration When administering in feeding tube, flush before and after per policy and monitor potassium levels Or potassium chloride IVPB 10 mEq/100 mL in water (0.1 mEq/mL premix)Jump to med 10 mEq, intravenous, at 100 mL/hr, Administer over 60 Minutes, As needed, POTASSIUM REPLACEMENT, Starting on Thu11/29/24 at 0754, IV if unable to use oral/enteral with the current dosing strategies Potassium level 3 mmol/L or less administer Potassium Chloride 50 mEq Potassium level 3.1 to 3.3 mmol/L administer Potassium Chloride 40 mEq Potassium level 3.4 to 3.8 mmol/L administer Potassium Chloride 30 mEq Use central line when applicable. Recheck potassium level 1 hour after total IVPB infusion complete, With each potassium result continue the replacement orders as needed VESICANT (YELLOW) Infuse each 10 mEq over a minimum of 1 hour. FOR RECORDS PERTAINING TO PATIENTS WHO ARE [...] BE BASED ON THE PRIMARY CLINICAL RECORDS. [facility]. provides no warranty or guarantee of the accuracy or completeness of information in this document.
[2024-12-30 13:08] LABS: Free T3 2.44 pg/mL (2.18-3.98); Thyroid Stimulating Hormone 7.163 uIU/mL (0.358-3.740)
== END 2024-12-30 11:51 | disposition home or self-care (01) ==
LOC: LAB 11:53
PROVIDERS: PCP Family Medicine; Visit Provider Family Medicine
DX: E03.9 Hypothyroidism, unspecified (principal)
CPT/HCPCS: 36415; 84436; 84443; 84481

== ENCOUNTER 2025-01-31 13:11 | Outpatient (OUT) | payer MEDICARE, SELFPAY ==
[2025-01-31 14:38] LABS: Free T3 2.49 pg/mL (2.18-3.98); Thyroid Stimulating Hormone 4.445 uIU/mL (0.358-3.740)
== END 2025-01-31 13:12 | disposition home or self-care (01) ==
LOC: LAB 13:13
PROVIDERS: PCP Family Medicine; Visit Provider Family Medicine
DX: E03.9 Hypothyroidism, unspecified (principal)
CPT/HCPCS: 36415; 84436; 84443; 84481